=== PATIENT | male | born 1945 | race Caucasian/White ===

== ENCOUNTER 2019-11-05 13:29 | Emergency (ER) | payer OTHER ==
--- NOTE | 2019-11-05 13:45 | EDM.PDOC ---
ED HPI GENERAL MEDICAL PROBLEM - General Chief Complaint: Lower Extremity Injury/Pain Stated Complaint: MEDICATION REFILL Time Seen by Provider: 11/05/19 13:36 Source of Information: Reports: Patient History Limitations: Reports: No Limitations - History of Present Illness INITIAL COMMENTS - FREE TEXT/NARRATIVE: Patient is unfortunate 74-year-old male who presents emergency Department today with complaint of chronic right lower extremity pain. Patient reports he has been on oxycodone for 20 years for right lower extremity pain. He reports that he's been out of his oxycodone for the last 2 weeks after he came here from [place] and was unable to get his prescription refilled secondary to his physician retiring. Right Leg Pain Score (Numeric/FACES): 10 Review of Systems - Review of Systems Review Of Systems: See Below Constitutional: Denies: Chills, Diaphoresis Musculoskeletal: Reports: Leg Pain ED EXAM, GENERAL - Physical Exam Exam: See Below Exam Limited By: No Limitations General Appearance: Alert, WD/WN, No Apparent Distress Neck: Normal Inspection, Supple, Non-Tender, Full Range of Motion Respiratory/Chest: No Respiratory Distress, Lungs Clear, Normal Breath Sounds, No Accessory Muscle Use, Chest Non-Tender Cardiovascular: Normal Peripheral Pulses, Regular Rate, Rhythm, No Edema, No Gallop, No JVD, No Murmur, No Rub GI/Abdominal: Normal Bowel Sounds, Soft, Non-Tender, No Organomegaly, No Distention, No Abnormal Bruit, No Mass Back Exam: Normal Inspection, Full Range of Motion, NT Extremities: Normal Inspection, Normal Range of Motion Neurological: Alert Skin Exam: Warm, Dry Course - Re-Assessments/Exams Free Text/Narrative Re-Assessment/Exam: 11/05/19 13:44 Patient reports she's been out of oxycodone for 2 weeks, there is no danger at this time of opiate withdrawal, I have goes to great length with patient that is inappropriate to come to the emergency department for chronic pain treatment and we do not treat chronic pain of the emergency department patient verbalizes understanding we've instructed patient to follow up outpatient with PCP did attempt to address his issues he agrees to do so and will return for any worsening condition Departure - Departure Time of Disposition: 13:44 Disposition: Home, Self-Care 01 Condition: Good Clinical Impression: Chronic pain Qualifiers: Chronic pain type: other chronic pain Qualified Code(s): G89.29 - Other chronic pain - Discharge Information Referrals: PCP,Not In Area [Primary Care Provider] - Diana Bowers NP [Ordering Only Provider] - Additional Instructions: Home, rest, return as needed for worsening condition
== END 2019-11-05 13:55 | disposition home or self-care (01) ==
LOC: JD.ED 13:29
DX: G89.29 Other chronic pain (principal); M79.661 Pain in right lower leg
CPT/HCPCS: 99281; 99282

== ENCOUNTER 2020-06-24 01:12 | Emergency (ER) | payer OTHER ==
--- NOTE | 2020-06-24 01:51 | EDM.PDOC ---
ED HPI GENERAL MEDICAL PROBLEM - General Chief Complaint: Gastrointestinal Problem Stated Complaint: [facility] Time Seen by Provider: 06/24/20 01:20 Source of Information: Reports: Patient History Limitations: Reports: No Limitations - History of Present Illness INITIAL COMMENTS - FREE TEXT/NARRATIVE: Mr. Guido is a very pleasant 75-year-old gentleman who now presents the ED via EMS after developing sudden onset right lower quadrant abdominal pain around 21:30 to 22:00 tonight, while watching television. No flank or back pain. He is unable to describe the character of the pain other than it is a "steady pain". He states that the pain is constant, but at the same time, he states that it has been coming and going. He has not identified any modifiers. He st ates that he had some associated nausea, but no vomiting, constipation, diarrhea, urinary symptoms, or gross hematuria. No prior similar symptoms. The patient states that since arriving at the ED, his pain noticeably improved, and as I was evaluating him, his pain resolved completely. He did not take any [id number] or home remedies prior to coming to the ED, and he states that EMS did not give him anything en route to the ED. Here in the ED, the patient's initial BP was found to be elevated at 238/124, but it improved without treatment. He is otherwise hemodynamic stable, afebrile, saturating 93% on room air. Other than tonight's right lower quadrant abdominal pain and nausea, the patient denies having a recent fever, chills, sore throat, ear pain, nasal or sinus congestion, cough, dyspnea, chest pain, palpitations, vomiting, constipation, diarrhea, urinary symptoms, recent weight gain or weight loss, recent bloody bowel movements or black bowel movements, recent joint aches, headaches, or rashes. The patient's PCP is Dr. Parul Ho at the [facility]. - Related Data Allergies Allergy/AdvReac Type Severity Reaction Status Date / Time No Known Allergies Allergy Verified 11/05/19 13:45 Home Meds: Home Meds oxyCODONE HCl/Acetaminophen [Percocet 10-325 mg Tablet] 1 tab PO TID 11/05/19 [History] Past Medical History Cardiovascular History: Reports: High Cholesterol, Hypertension, [place] (x 2) Musculoskeletal History: Reports: Fracture (right femur fracture) - Past Surgical History Cardiovascular Surgical History: Reports: Coronary Artery Stent (x 1), Other (See Below) (Coronary angiogram x 2) Musculoskeletal Surgical History: Reports: ORIF (right femur) Social & Family History - Family History Family Medical History: Noncontributory - Tobacco Use Smoking Status *Q: Never Smoker - Alcohol Use Alcohol Use History: Yes Alcohol Use Frequency: Socially - Recreational Drug Use Recreational Drug Use: Yes Drug Use in Last 12 Months: Yes Recreational Drug Type: Reports: Marijuana/Hashish (smokes on occasion) - Living Situation & Occupation Living situation: Reports: , with Spouse Occupation: Retired ED ROS GENERAL - Review of Systems Review Of Systems: Comprehensive ROS is negative, except as noted in HPI. ED EXAM, GI/ABD - Physical Exam Exam: See Below Exam Limited By: No Limitations General Appearance: Alert, WD/WN, No Apparent Distress Eyes: Bilateral: Normal Appearance, EOMI Ears: Normal External Exam, Hearing Grossly Normal Nose: Normal Inspection Throat/Mouth: Normal Inspection, Normal Lips, Normal Voice, No Airway Compromise Head: Atraumatic, Normocephalic Neck: Normal Inspection, Full Range of Motion Respiratory/Chest: No Respiratory Distress, Lungs Clear, Normal Breath Sounds, No Accessory Muscle Use Cardiovascular: Normal Peripheral Pulses, Regular Rate, Rhythm, No Edema, No Gallop, No JVD, No Murmur, No Rub GI/Abdominal Exam: Normal Bowel Sounds, Soft, Non-Tender (including the RLQ), No Organomegaly, No Distention, No Abnormal Bruit, No Mass (Male) Exam: Deferred Rectal (Males) Exam: Deferred Back Exam: Normal Inspection, Full Range of Motion. No: CVA Tenderness (L), CVA Tenderness (R) Extremities: Normal Inspection, Normal Range of Motion, No Pedal Edema, Normal Capillary Refill Neurological: Alert, Oriented, Normal Cognition, No Motor/Sensory Deficits Psychiatric: Normal Affect Skin Exam: Warm, Dry, Intact, Normal Color, No Rash Course - Vital Signs Last Recorded V/S: Last Vital Signs Temp 36.5 C 06/24/20 01:14 Pulse 83 06/24/20 01:14 Resp 20 06/24/20 01:14 BP 159/84 H 06/24/20 01:55 Pulse Ox 93 L 06/24/20 01:14 - Orders/Labs/Meds Orders: Active Orders 24 hr Category Date Time Status CULTURE URINE [RM] Stat Lab 06/24/20 01:23 Received Labs: Laboratory Tests 06/24/20 Range/Units 01:22 Urine Color Yellow (Yellow) Urine Appearance Clear (Clear) Urine pH 7.0 (5.0-8.0) Ur Specific [place] > or = 1.030 (1.005-1.030) Urine Protein 3+ H (Negative) Urine Glucose (UA) Negative (Negative) Urine Ketones Negative (Negative) Urine Occult Blood 3+ H (Negative) Urine Nitrite Negative (Negative) Urine Bilirubin Negative (Negative) Urine Urobilinogen 0.2 (0.2-1.0) Ur Leukocyte Esterase Negative (Negative) U Hyaline Cast (Auto) 0-5 (0-5) /lpf Urine RBC 50-75 H (0-5) /hpf Urine WBC Not seen (0-5) /hpf Ur Squamous Epith Cells 0-5 (0-5) /hpf Ur Transition Epith Cell 0-5 (0-5) Urine Bacteria Few (FEW) /hpf Urine Mucus Moderate H (FEW) /hpf - Re-Assessments/Exams Free Text/Narrative Re-Assessment/Exam: 06/24/20 01:39 As above, the patient developed right lower quadrant pain earlier this evening, and while he still had pain upon arrival to the ED, the pain has since resolved, and his physical exam is unremarkable, including no tenderness whatsoever to palpation of his abdomen. During my interview, the patient needed to urinate, and a urine sample was sent, however, at this time, I do not see an indication for any other tests, since the patient is now asymptomatic. 06/24/20 01:58 The patient's urinalysis is remarkable for 3+ occult blood with 50-75 RBCs, leukocyte esterase negative with no white blood cells seen, nitrate negative with few bacteria, and 0-5 squamous epithelial cells. Given the patient's transient right lower quadrant abdominal pain and hematuria, I suspect that he suffered from a ureterolith, which appears to have now passed. I ordered a urine culture, but I do not feel that his urinalysis is consistent enough with a UTI to warrant starting him on an antibiotic. I believe he can safely be discharged home. Departure - Departure Time of Disposition: 02:03 Disposition: Home, Self-Care 01 Condition: Good Clinical Impression: Right lower quadrant abdominal pain of unknown etiology, Hematuria - Discharge Information *PRESCRIPTION DRUG MONITORING PROGRAM REVIEWED*: Not Applicable *COPY OF PRESCRIPTION DRUG MONITORING REPORT IN PATIENT JANET: Not Applicable Instructions: Hematuria, Adult Forms: ED Department Discharge Additional Instructions: You were seen in the emergency room after developing lower right abdominal pain, that resolved while you were in the ER, without treatment. Work-up in the ER included a urinalysis, which demonstrated blood, but no other abnormalities to suggest an infection. Based on your history, physical exam, and urinalysis results, we suspected that you passed a small kidney stone, although since your symptoms resolved, that cannot be proven. We recommend you stay adequately hydrated. If your symptoms return, or for any other problems, please do not hesitate to return to the ER. Sepsis Event Note (ED) - Evaluation Sepsis Screening Result: No Definite Risk - Focused Exam Vital Signs: Vital Signs Temp Pulse Resp BP Pulse Ox 06/24/20 01:55 159/84 H 06/24/20 01:14 36.5 C 83 20 238/124 H 93 L - My Orders Last 24 Hours: My Active Orders 06/24/20 01:23 CULTURE URINE [RM] Stat - Assessment/Plan Last 24 Hours: My Active Orders 06/24/20 01:23 CULTURE URINE [RM] Stat
== END 2020-06-24 02:25 | disposition home or self-care (01) ==
LOC: JD.ED 01:12
DX: R10.31 Right lower quadrant pain (principal); R31.9 Hematuria, unspecified; I10 Essential (primary) hypertension
CPT/HCPCS: 81001; 87086; 99282; 99284

== ENCOUNTER 2021-01-29 13:28 | Inpatient (IN) | payer OTHER ==
[2021-01-29] MEDS ORDERED: Sodium Chloride 0.9% 10 ML Syringe FLUSH PRN (13:40)
[2021-01-29] MEDS ORDERED: Metoprolol Tartrate 5 MG/5 ML SDV IVPUSH ONE ×2 (13:52→14:18)
--- NOTE | 2021-01-29 13:52 | EDM.PDOC ---
ED HPI GENERAL MEDICAL PROBLEM - General Chief Complaint: Neuro Symptoms/Deficits Stated Complaint: [facility] Time Seen by Provider: 01/29/21 13:39 Source of Information: Reports: Patient, RN Notes Reviewed - History of Present Illness INITIAL COMMENTS - FREE TEXT/NARRATIVE: 75 yr old male comes in by ambulance with sx of slurred speech, R facial droop, mild chest discomfort. EMS noted his BP to be high in the 250 range systolic. He has hx of Htn, CAD with a cardiac stent placed about 6 yrs ago and about 20 yrs ago. Last known well 2 or 3 days ago. He states he had some slurred speech 2 days ago. He states the speech was worse when awakened this morning. He has had mild tightness of his R chest all morning. No known hx of prior stroke. He does not smoke. No recent cough, fever or chills. Left Chest Pain Score (Numeric/FACES): 3 - Related Data Allergies Allergy/AdvReac Type Severity Reaction Status Date / Time No Known Allergies Allergy Verified 11/05/19 13:45 Home Meds: Home Meds oxyCODONE HCl/Acetaminophen [Percocet 10-325 mg Tablet] 1 tab PO TID 11/05/19 [History] Aspirin [Aspirin EC] 81 mg PO DAILY 01/29/21 [History] Cholecalciferol (Vitamin D3) [Vitamin D3] 25 mcg PO DAILY 01/29/21 [History] Clopidogrel Bisulfate [Clopidogrel] 75 mg PO DAILY 01/29/21 [History] Cyclobenzaprine [Flexeril] 10 mg PO BID PRN 01/29/21 [History] Donepezil HCl 10 mg PO BEDTIME 01/29/21 [History] Ibuprofen 800 mg PO DAILY 01/29/21 [History] Krill/[place]-3/Dha/Epa/Lipids [Krill Oil 300 mg Softgel] 350 mg PO DAILY 01/29/21 [History] Nitroglycerin 0.6 mg SL DAILY PRN 01/29/21 [History] Rosuvastatin Calcium 40 mg PO DAILY 01/29/21 [History] Ubidecarenone [Coq-10] 200 mg PO DAILY 01/29/21 [History] Vitamin E 800 unit PO DAILY 01/29/21 [History] carvediloL [Carvedilol] 6.25 mg PO BID 01/29/21 [History] lisinopriL [Lisinopril] 40 mg PO DAILY 01/29/21 [History] Past Medical History Cardiovascular History: Reports: High Cholesterol, Hypertension, [place] (x 2) Musculoskeletal History: Reports: Fracture (right femur fracture) - Past Surgical History Cardiovascular Surgical History: Reports: Coronary Artery Stent (x 1), Other (See Below) (Coronary angiogram x 2) Musculoskeletal Surgical History: Reports: ORIF (right femur) Social & Family History - Family History Family Medical History: No Pertinent Family History - Living Situation & Occupation Living situation: Reports: , with Spouse Occupation: Retired ED ROS GENERAL - Review of Systems Review Of Systems: See Below Constitutional: Denies: Fever, Chills, Diaphoresis HEENT: Reports: Other (R facial droop) Respiratory: Denies: Shortness of Breath, Cough Cardiovascular: Reports: Chest Pain GI/Abdominal: Denies: Abdominal Pain Musculoskeletal: Denies: Shoulder Pain, Arm Pain Skin: Reports: Bruising (L proximal medial thigh) Neurological: Reports: Other (R facial droop, slurred speech, mild expresssive aphasia) ED EXAM, NEURO - Physical Exam Exam: See Below General Appearance: Alert, No Apparent Distress Eye Exam: Bilateral Eye: PERRL Throat/Mouth: Other (R facial droop) Head Exam: Atraumatic Neck: Supple, Other (no JVD) Respiratory/Chest: No Respiratory Distress Cardiovascular: Tachycardia GI/Abdominal: Soft, Non-Tender. No: Guarding Neurological: Alert, Oriented x 3, Other (no drift, finger to nose testing normal, no focal weakness other than R facial droop, continues to have mildly slurred speech and mild expressive aphasia) Extremities: Other (has some old bruising L medial thigh, small area of swelling mid medial thigh compatable with a mild localized superfiscial phlebitis, distal legs not swollen, warm or erythematous, calves nontender) Skin Exam: Warm, Dry Course - Vital Signs Last Recorded V/S: Last Vital Signs Temp 97.7 F 01/29/21 13:37 Pulse 140 H 01/29/21 14:30 Resp 20 01/29/21 13:37 BP 197/143 H 01/29/21 14:30 Pulse Ox 98 01/29/21 13:37 - Orders/Labs/Meds Orders: Active Orders 24 hr Category Date Time Status EKG 12 Lead [EKG Documentation Completion] [] STAT Care 01/29/21 13:41 Active EKG 12 Lead [EKG Documentation Completion] [] STAT Care 01/29/21 15:22 Active Peripheral IV Care [] . DIRECTED Care 01/29/21 13:41 Active Clopidogrel [Plavix] Med 01/30/21 17:35 Once 75 mg PO ONETIME ONE Sodium Chloride 0.9% [Saline Flush] Med 01/29/21 13:40 Active 10 ml FLUSH ASDIRECTED PRN Peripheral IV Insertion Adult [OM.PC] Stat Oth 01/29/21 13:41 Ordered Medication Orders Clopidogrel Bisulfate (Clopidogrel 75 Mg Tab) 75 mg PO ONETIME ONE Stop: 01/30/21 17:36 Sodium Chloride (Sodium Chloride 0.9% 10 Ml Syringe) 10 ml FLUSH ASDIRECTED PRN PRN Reason: Keep Vein Open Last Admin: 01/29/21 16:33 Dose: 10 ml Documented by: ENRIQUE Labs: Laboratory Tests 01/29/21 01/29/21 01/29/21 Range/Units 11:44 13:37 13:39 WBC 7.67 (4.23-9.07) K/mm3 RBC 5.72 (4.63-6.08) M/mm3 Hgb 16.5 (13.7-17.5) gm/dl Hct 49.4 (40.1-51.0) % MCV 86.4 (79.0-92.2) fl MCH 28.8 (25.7-32.2) pg MCHC 33.4 (32.2-35.5) g/dl RDW Std Deviation 45.1 H (35.1-43.9) fL Plt Count 158 L (163-337) K/mm3 MPV 10.8 (9.4-12.3) fl Neut % (Auto) 67.6 (34.0-67.9) % Lymph % (Auto) 21.3 L (21.8-53.1) % [place] % (Auto) 8.1 (5.3-12.2) % Eos % (Auto) 2.5 (0.8-7.0) Baso % (Auto) 0.5 (0.1-1.2) % Neut # (Auto) 5.19 (1.78-5.38) K/mm3 Lymph # (Auto) 1.63 (1.32-3.57) K/mm3 [place] # (Auto) 0.62 (0.30-0.82) K/mm3 Eos # (Auto) 0.19 (0.04-0.54) K/mm3 Baso # (Auto) 0.04 (0.01-0.08) K/mm3 Sodium (136-145) mEq/L Potassium (3.5-5.1) mEq/L Chloride (98-107) mEq/L Carbon Dioxide (21-32) mEq/L Anion Gap (5-15) BUN (7-18) mg/dL Creatinine (0.7-1.3) mg/dL Est Cr Clr Drug Dosing Estimated GFR (MDRD) (>60) mL/min BUN/Creatinine Ratio (14-18) Glucose (83-115) mg/dL POC Glucose 297 H (70-99) mg/dL Hemoglobin A1c ( - 5.6) % Calcium (8.5-10.1) mg/dL Total Bilirubin (0.2-1.0) mg/dL AST (15-37) U/L ALT (16-63) U/L Alkaline Phosphatase (46-116) U/L Troponin I (0.00-0.056) ng/mL NT-Pro-B Natriuret Pep (0-125) pg/mL Total Protein (6.4-8.2) g/dl Albumin (3.4-5.0) g/dl Globulin gm/dL Albumin/Globulin Ratio (1-2) SARS-CoV-2 RNA (MARCO) Negative (NEGATIVE) 01/29/21 01/29/21 01/29/21 Range/Units 13:39 13:39 13:39 WBC (4.23-9.07) K/mm3 RBC (4.63-6.08) M/mm3 Hgb (13.7-17.5) gm/dl Hct (40.1-51.0) % MCV (79.0-92.2) fl MCH (25.7-32.2) pg MCHC (32.2-35.5) g/dl RDW Std Deviation (35.1-43.9) fL Plt Count (163-337) K/mm3 MPV (9.4-12.3) fl Neut % (Auto) (34.0-67.9) % Lymph % (Auto) (21.8-53.1) % [place] % (Auto) (5.3-12.2) % Eos % (Auto) (0.8-7.0) Baso % (Auto) (0.1-1.2) % Neut # (Auto) (1.78-5.38) K/mm3 Lymph # (Auto) (1.32-3.57) K/mm3 [place] # (Auto) (0.30-0.82) K/mm3 Eos # (Auto) (0.04-0.54) K/mm3 Baso # (Auto) (0.01-0.08) K/mm3 Sodium 139 (136-145) mEq/L Potassium 3.5 (3.5-5.1) mEq/L Chloride 101 (98-107) mEq/L Carbon Dioxide 20 L (21-32) mEq/L Anion Gap 21.5 H (5-15) BUN 16 (7-18) mg/dL Creatinine 1.0 (0.7-1.3) mg/dL Est Cr Clr Drug Dosing TNP Estimated GFR (MDRD) > 60 (>60) mL/min BUN/Creatinine Ratio 16.0 (14-18) Glucose 308 H (83-115) mg/dL POC Glucose (70-99) mg/dL Hemoglobin A1c 6.3 H ( - 5.6) % Calcium 8.8 (8.5-10.1) mg/dL Total Bilirubin 1.4 H (0.2-1.0) mg/dL AST 27 (15-37) U/L ALT 27 (16-63) U/L Alkaline Phosphatase 67 (46-116) U/L Troponin I 0.027 (0.00-0.056) ng/mL NT-Pro-B Natriuret Pep 691 H (0-125) pg/mL Total Protein 7.9 (6.4-8.2) g/dl Albumin 4.1 (3.4-5.0) g/dl Globulin 3.8 gm/dL Albumin/Globulin Ratio 1.1 (1-2) SARS-CoV-2 RNA (MARCO) (NEGATIVE) 01/29/21 Range/Units 16:40 WBC (4.23-9.07) K/mm3 RBC (4.63-6.08) M/mm3 Hgb (13.7-17.5) gm/dl Hct (40.1-51.0) % MCV (79.0-92.2) fl MCH (25.7-32.2) pg MCHC (32.2-35.5) g/dl RDW Std Deviation (35.1-43.9) fL Plt Count (163-337) K/mm3 MPV (9.4-12.3) fl Neut % (Auto) (34.0-67.9) % Lymph % (Auto) (21.8-53.1) % [place] % (Auto) (5.3-12.2) % Eos % (Auto) (0.8-7.0) Baso % (Auto) (0.1-1.2) % Neut # (Auto) (1.78-5.38) K/mm3 Lymph # (Auto) (1.32-3.57) K/mm3 [place] # (Auto) (0.30-0.82) K/mm3 Eos # (Auto) (0.04-0.54) K/mm3 Baso # (Auto) (0.01-0.08) K/mm3 Sodium (136-145) mEq/L Potassium (3.5-5.1) mEq/L Chloride (98-107) mEq/L Carbon Dioxide (21-32) mEq/L Anion Gap (5-15) BUN (7-18) mg/dL Creatinine (0.7-1.3) mg/dL Est Cr Clr Drug Dosing Estimated GFR (MDRD) (>60) mL/min BUN/Creatinine Ratio (14-18) Glucose (83-115) mg/dL POC Glucose (70-99) mg/dL Hemoglobin A1c ( - 5.6) % Calcium (8.5-10.1) mg/dL Total Bilirubin (0.2-1.0) mg/dL AST (15-37) U/L ALT (16-63) U/L Alkaline Phosphatase (46-116) U/L Troponin I 0.109 H* (0.00-0.056) ng/mL NT-Pro-B Natriuret Pep (0-125) pg/mL Total Protein (6.4-8.2) g/dl Albumin (3.4-5.0) g/dl Globulin gm/dL Albumin/Globulin Ratio (1-2) SARS-CoV-2 RNA (MARCO) (NEGATIVE) Meds: Medications Generic Name Dose Route Start Last Admin Trade Name Freq PRN Reason Stop Dose Admin Clopidogrel Bisulfate 75 mg 01/30/21 17:35 Clopidogrel 75 Mg Tab PO 01/30/21 17:36 ONETIME ONE Sodium Chloride 10 ml 01/29/21 13:40 01/29/21 16:33 Sodium Chloride 0.9% 10 Ml Syringe FLUSH 10 ml ASDIRECTED PRN Administration Keep Vein Open Discontinued Medications Generic Name Dose Route Start Last Admin Trade Name Freq PRN Reason Stop Dose Admin Aspirin 324 mg 01/29/21 17:34 Aspirin 81 Mg Tab.Chew PO 01/29/21 17:35 ONETIME ONE Diltiazem HCl 20 mg 01/29/21 14:31 01/29/21 14:36 Diltiazem 50 Mg/10 Ml Sdv IVPUSH 01/29/21 14:32 15 mg ONETIME ONE Administration Metoprolol Tartrate 5 mg 01/29/21 13:52 01/29/21 14:00 Metoprolol Tartrate 5 Mg/5 Ml Sdv IVPUSH 01/29/21 13:53 5 mg ONETIME ONE Administration Metoprolol Tartrate 5 mg 01/29/21 14:18 01/29/21 14:30 Metoprolol Tartrate 5 Mg/5 Ml Sdv IVPUSH 01/29/21 14:19 2.5 mg ONETIME ONE Administration - Re-Assessments/Exams Free Text/Narrative Re-Assessment/Exam: 01/29/21 15:40. Initially gave 5 mg and 2.5 mg lopressor IV. That brought his rate down to the mid 140's, and did bring his BP down to about 190 systolic from the 250 systolic on arrival. Than went to Diltiazam IV. 10 mg IV brought his rate down to the 120's with occasional p wave complexes visible. Gave an addition 5 mg IV and with that he converted to NSR, rate in the 60's. His chest pain is gone. He feels much better. He still does have mild R facial droop and mildly slurred speech. Last definitive known well last evening before bedtime, perhaps as long as 2 or 3 days ago. Initial trop was very mildly up from baseline at .023. Will repeat trop at this time and also check a A1C. glucose noted to be around 300. 01/29/21 17:45. Repeat trop did come back more elevated at .109. I did discuss this with Dr Nicolas, Cardiology, [facility]. He feels the elevated trop is not an unreasonable finding considering his elevated BP before and on arrival and also the tachycardia of unknown duration. He suggests hospital admission here, continue serial trops, further treatment and rehab of stroke, transfer if things change or worsen in any meaningful way. Pt's BP right now 161/90, he is resting comfortably. I believe his speech is improved from arrival but he still does have mild R facial droop, mild slurring of his speech. Continues to have no upper or lower extrem. weakness or clumsiness. Departure - Departure Time of Disposition: 17:47 Disposition: Home, Self-Care 01 Condition: Fair Clinical Impression: Atrial flutter with rapid ventricular response, Elevated troponin CVA (cerebral vascular accident) Qualifiers: CVA mechanism: unspecified Qualified Code(s): I63.9 - Cerebral infarction, unspecified Hypertension Qualifiers: Hypertension type: essential hypertension Qualified Code(s): I10 - Essential (primary) hypertension - Discharge Information Referrals: Flora Horner MD [Primary Care Provider] - Forms: ED Department Discharge Sepsis Event Note (ED) - Focused Exam Vital Signs: Vital Signs Temp Pulse Pulse Resp BP BP Pulse Ox 01/29/21 14:30 140 H 197/143 H 01/29/21 14:00 152 H 215/135 H 01/29/21 13:37 97.7 F 152 H 20 223/154 H 98 ED Communication - Discussed Case With (1) Discussed Case With (1): Admitting Provider (Dr Zimmerman, decision to admit at about 17:50.) - My Orders Last 24 Hours: My Active Orders 01/29/21 13:40 Sodium Chloride 0.9% [Saline Flush] 10 ml FLUSH ASDIRECTED PRN 01/29/21 13:41 EKG 12 Lead [EKG Documentation Completion] [RC] STAT Peripheral IV Care [RC] . DIRECTED Peripheral IV Insertion Adult [OM.PC] Stat 01/29/21 15:22 EKG 12 Lead [EKG Documentation Completion] [RC] STAT 01/30/21 17:35 Clopidogrel [Plavix] 75 mg PO ONETIME ONE - Assessment/Plan Last 24 Hours: My Active Orders 01/29/21 13:40 Sodium Chloride 0.9% [Saline Flush] 10 ml FLUSH ASDIRECTED PRN 01/29/21 13:41 EKG 12 Lead [EKG Documentation Completion] [RC] STAT Peripheral IV Care [RC] . DIRECTED Peripheral IV Insertion Adult [OM.PC] Stat 01/29/21 15:22 EKG 12 Lead [EKG Documentation Completion] [RC] STAT 01/30/21 17:35 Clopidogrel [Plavix] 75 mg PO ONETIME ONE
--- NOTE | 2021-01-29 14:18 | CT ---
Head CT Technique: Multiple axial sections through the brain were obtained. Intravenous contrast was not utilized. Reconstructed coronal and sagittal images were obtained. Findings: Ventricles along with basal cisterns and sulci over the convexities are moderately prominent. Diminished density is noted within the periventricular and subcortical white matter which has the appearance of small vessel ischemic demyelination change. Small old white matter infarct is noted within the right centrum semi-ovale. Minimal areas of diminished density are noted within the basal ganglia most likely due to small vessel demyelination change. Low density is also noted within the subcortical white matter within the left parietal region compatible with old white matter infarct. No other abnormal parenchymal densities are seen. Atherosclerotic calcification is noted within the vertebral vessels and within the carotid siphon. Bone window settings were reviewed. Visualized paranasal sinuses and mastoid sinuses show nothing acute. No acute calvarial abnormality is appreciated. Impression: 1. Diffuse senescent change as noted above. 2. No acute intracranial abnormality is appreciated on noncontrast head CT exam. Please correlate if patient's symptoms warrant further evaluation by MRI. Diagnostic code #2
--- NOTE | 2021-01-29 14:20 | CR ---
Chest: Portable view of the chest was obtained. Comparison: No previous chest imaging available. Heart size and mediastinum are within normal limits for portable technique. Lungs are clear with no acute parenchymal change. No acute osseous finding is seen. Impression: 1. Nothing acute is seen on portable chest x-ray. Diagnostic code #1
[2021-01-29] MEDS ORDERED: Diltiazem 50 MG/10 ML SDV IVPUSH ONE (14:31)
[2021-01-29 16:46] LABS: HEMOGLOBIN A1C 6.3 %
[2021-01-29] MEDS ORDERED: Aspirin 81 MG Tab.Chew PO ONE (17:34)
[2021-01-29] MEDS ORDERED: Clopidogrel 75 MG Tab PO ONE (18:02)
[2021-01-29] MEDS ORDERED: Acetaminophen 325 MG Tab PO PRN (18:20)
[2021-01-29] MEDS ORDERED: Ondansetron 4 MG Tab.DIS PO PRN (18:20)
[2021-01-29] MEDS ORDERED: Morphine 2 MG/ML SYRINGE IVPUSH PRN (18:20)
[2021-01-29] MEDS ORDERED: Docusate Sodium 100 MG Cap PO PRN (18:20)
[2021-01-29] MEDS ORDERED: oxyCODONE 5 MG Tab PO PRN (18:20)
[2021-01-29] MEDS ORDERED: Cyclobenzaprine 10 MG Tab PO PRN (18:31)
--- NOTE | 2021-01-29 18:34 | PCM.HP.2 ---
H&P History of Present Illness - General Date of Service: 01/29/21 Admit Problem/Dx: Admission Diagnosis/Problem Admission Diagnosis/Problem CVA, Cerebrovascular accident Source of Information: Patient History Limitations: Reports: Other (Poor historian) - History of Present Illness Initial Comments - Free Text/Narative: The patient is a 75-year-old gentleman who has presented to the emergency department complaining of slurred speech facial droop and chest discomfort that started approximately 3 days ago. The patient in the emergency department was noted to have an extremely elevated blood pressure around 250 mmHg systolic. Patient does have a history of hypertension and has been on medications for this. Patient also has a history of coronary artery disease with stent placement 6 years ago and 20 years ago. It was also initially noted that he had superior ventricular tachycardia with rates in the 180 bpm. The patient had his rate controlled and he converted to sinus rhythm in the emergency department after diltiazem. The patient's EKG shows evidence of old infarct along with right bundle branch block. The patient's blood pressure was also controlled in the emergency department and at the time of the history and physical the patient had no further chest pain. The patient normally follows with the [facility] but he has not seen a physician in the past year and a half. Poor historian. Onset of Symptoms: Reports: Unknown/Unsure Duration of Symptoms: Reports: Day(s): Location: Reports: Head, Chest Quality: Reports: Ache, Dull, Pressure Severity: Moderate Improves with: Reports: Medication Worsens with: Reports: None Context: Reports: Other (Stroke code) Left Chest Pain Score (Numeric/FACES): 3 - Related Data Allergies/Adverse Reactions: Allergies Allergy/AdvReac Type Severity Reaction Status Date / Time No Known Allergies Allergy Verified 01/29/21 20:46 Home Medications: Home Meds oxyCODONE HCl/Acetaminophen [Percocet 10-325 mg Tablet] 1 tab PO TID 11/05/19 [History] Aspirin [Aspirin EC] 81 mg PO DAILY 01/29/21 [History] Cholecalciferol (Vitamin D3) [Vitamin D3] 25 mcg PO DAILY 01/29/21 [History] Clopidogrel Bisulfate [Clopidogrel] 75 mg PO DAILY 01/29/21 [History] Cyclobenzaprine [Flexeril] 10 mg PO BID PRN 01/29/21 [History] Donepezil HCl 10 mg PO BEDTIME 01/29/21 [History] Ibuprofen 800 mg PO DAILY 01/29/21 [History] Krill/Griffin-3/Dha/Epa/Lipids [Krill Oil 300 mg Softgel] 350 mg PO DAILY 01/29/21 [History] Nitroglycerin 0.6 mg SL DAILY PRN 01/29/21 [History] Rosuvastatin Calcium 40 mg PO DAILY 01/29/21 [History] Ubidecarenone [Coq-10] 200 mg PO DAILY 01/29/21 [History] Vitamin E 800 unit PO DAILY 01/29/21 [History] carvediloL [Carvedilol] 6.25 mg PO BID 01/29/21 [History] lisinopriL [Lisinopril] 40 mg PO DAILY 01/29/21 [History] Past Medical History HEENT History: Reports: None Cardiovascular History: Reports: High Cholesterol, Hypertension, [facility] Respiratory History: Reports: None Gastrointestinal History: Reports: None Genitourinary History: Reports: None Musculoskeletal History: Reports: Back Pain, Chronic, Fracture, Other (See Below) (Chronic leg pain) Neurological History: Reports: CVA Psychiatric History: Reports: Anxiety, PTSD Endocrine/Metabolic History: Reports: None Hematologic History: Reports: None Immunologic History: Reports: None Oncologic (Cancer) History: Reports: None Dermatologic History: Reports: None - Past Surgical History Cardiovascular Surgical History: Reports: Coronary Artery Stent, Other (See Below) Musculoskeletal Surgical History: Reports: ORIF Other Musculoskeletal Surgeries/Procedures:: right lower leg injury from war cinda e-uses brace and oxycodone Social & Family History - Family History Family Medical History: No Pertinent Family History - Tobacco Use Tobacco Use Status *Q: Never Tobacco User - Recreational Drug Use Recreational Drug Use: Yes Drug Use in Last 12 Months: Yes Recreational Drug Type: Reports: Marijuana/Hashish Other Recreational Drug Type: Pt used marijuana two days ago Recreational Drug Use Frequency: Monthly - Living Situation & Occupation Living situation: Reports: , with Spouse Occupation: Retired H&P Review of Systems - Review of Systems: Review Of Systems: See Below General: Reports: Weakness HEENT: Reports: No Symptoms Pulmonary: Reports: No Symptoms Cardiovascular: Reports: Chest Pain (Currently resolved with lowering of blood pressure and heart rate) Gastrointestinal: Reports: No Symptoms Genitourinary: Reports: No Symptoms Musculoskeletal: Reports: Leg Pain Skin: Reports: Bruising Psychiatric: Reports: Anxiety, Other (Depression, PTSD) Neurological: Reports: Pre-Existing Deficit, Change in Speech. Denies: Numbness, Difficulty Walking Hematologic/Lymphatic: Reports: Easy Bruising Immunologic: Reports: No Symptoms Exam - Exam Exam: See Below - Vital Signs Vital Signs: Last Vital Signs Temp 36.5 C 01/29/21 13:37 Pulse 140 H 01/29/21 14:30 Resp 20 01/29/21 13:37 BP 197/143 H 01/29/21 14:30 Pulse Ox 98 01/29/21 13:37 - Exam Quality Assessment: No: Supplemental Oxygen General: Alert, Oriented, Other (Appears older than stated age, disheveled) HEENT: Conjunctiva Clear, EOMI, Hearing Intact, Posterior Pharynx Clear, PERRLA. No: Mucosa Moist & [place] (Dry) Neck: Supple, Trachea Midline Lungs: Clear to Auscultation, Normal Respiratory Effort Cardiovascular: Regular Rate, Irregular Rhythm GI/Abdominal Exam: Normal Bowel Sounds, Soft, Non-Tender, No Distention. No: Guarding, Rigid (Male) Exam: Deferred Rectal (Males) Exam: Deferred Back Exam: Normal Inspection, Full Range of Motion Extremities: Normal Inspection, Normal Range of Motion, No Pedal Edema, Other (Brace left leg) Skin: Warm, Dry, Ecchymosis (Multiple ecchymoses legs, arms all in different stages of healing) Neurological: Strength Equal Bilateral, Sensation Intact. No: Normal Gait (Walks with a limp normally), Normal Speech (Slurred speech) Neuro Extensive - Mental Status: Alert, Oriented x3, Normal Mood/Affect, Normal Cognition Neuro Extensive - Motor, Sensory, Reflexes: CN II-XII Intact, Facial palsy (L). No: Tongue Deviation (L), Tongue Deviation (R) Psychiatric: Alert, Normal Affect, Depressed, Other (Tearful) - Patient Data Lab Results Last 24 hrs: Laboratory Results - last 24 hr 01/29/21 01/29/21 01/29/21 Range/Units 11:44 13:37 13:39 WBC 7.67 (4.23-9.07) K/mm3 RBC 5.72 (4.63-6.08) M/mm3 Hgb 16.5 (13.7-17.5) gm/dl Hct 49.4 (40.1-51.0) % MCV 86.4 (79.0-92.2) fl MCH 28.8 (25.7-32.2) pg MCHC 33.4 (32.2-35.5) g/dl RDW Std Deviation 45.1 H (35.1-43.9) fL Plt Count 158 L (163-337) K/mm3 MPV 10.8 (9.4-12.3) fl Neut % (Auto) 67.6 (34.0-67.9) % Lymph % (Auto) 21.3 L (21.8-53.1) % [place] % (Auto) 8.1 (5.3-12.2) % Eos % (Auto) 2.5 (0.8-7.0) Baso % (Auto) 0.5 (0.1-1.2) % Neut # (Auto) 5.19 (1.78-5.38) K/mm3 Lymph # (Auto) 1.63 (1.32-3.57) K/mm3 [place] # (Auto) 0.62 (0.30-0.82) K/mm3 Eos # (Auto) 0.19 (0.04-0.54) K/mm3 Baso # (Auto) 0.04 (0.01-0.08) K/mm3 Sodium (136-145) mEq/L Potassium (3.5-5.1) mEq/L Chloride (98-107) mEq/L Carbon Dioxide (21-32) mEq/L Anion Gap (5-15) BUN (7-18) mg/dL Creatinine (0.7-1.3) mg/dL Est Cr Clr Drug Dosing Estimated GFR (MDRD) (>60) mL/min BUN/Creatinine Ratio (14-18) Glucose (83-115) mg/dL POC Glucose 297 H (70-99) mg/dL Hemoglobin A1c ( - 5.6) % Calcium (8.5-10.1) mg/dL Total Bilirubin (0.2-1.0) mg/dL AST (15-37) U/L ALT (16-63) U/L Alkaline Phosphatase (46-116) U/L Troponin I (0.00-0.056) ng/mL NT-Pro-B Natriuret Pep (0-125) pg/mL Total Protein (6.4-8.2) g/dl Albumin (3.4-5.0) g/dl Globulin gm/dL Albumin/Globulin Ratio (1-2) SARS-CoV-2 RNA (MARCO) Negative (NEGATIVE) 01/29/21 01/29/21 01/29/21 Range/Units 13:39 13:39 13:39 WBC (4.23-9.07) K/mm3 RBC (4.63-6.08) M/mm3 Hgb (13.7-17.5) gm/dl Hct (40.1-51.0) % MCV (79.0-92.2) fl MCH (25.7-32.2) pg MCHC (32.2-35.5) g/dl RDW Std Deviation (35.1-43.9) fL Plt Count (163-337) K/mm3 MPV (9.4-12.3) fl Neut % (Auto) (34.0-67.9) % Lymph % (Auto) (21.8-53.1) % [place] % (Auto) (5.3-12.2) % Eos % (Auto) (0.8-7.0) Baso % (Auto) (0.1-1.2) % Neut # (Auto) (1.78-5.38) K/mm3 Lymph # (Auto) (1.32-3.57) K/mm3 [place] # (Auto) (0.30-0.82) K/mm3 Eos # (Auto) (0.04-0.54) K/mm3 Baso # (Auto) (0.01-0.08) K/mm3 Sodium 139 (136-145) mEq/L Potassium 3.5 (3.5-5.1) mEq/L Chloride 101 (98-107) mEq/L Carbon Dioxide 20 L (21-32) mEq/L Anion Gap 21.5 H (5-15) BUN 16 (7-18) mg/dL Creatinine 1.0 (0.7-1.3) mg/dL Est Cr Clr Drug Dosing TNP Estimated GFR (MDRD) > 60 (>60) mL/min BUN/Creatinine Ratio 16.0 (14-18) Glucose 308 H (83-115) mg/dL POC Glucose (70-99) mg/dL Hemoglobin A1c 6.3 H ( - 5.6) % Calcium 8.8 (8.5-10.1) mg/dL Total Bilirubin 1.4 H (0.2-1.0) mg/dL AST 27 (15-37) U/L ALT 27 (16-63) U/L Alkaline Phosphatase 67 (46-116) U/L Troponin I 0.027 (0.00-0.056) ng/mL NT-Pro-B Natriuret Pep 691 H (0-125) pg/mL Total Protein 7.9 (6.4-8.2) g/dl Albumin 4.1 (3.4-5.0) g/dl Globulin 3.8 gm/dL Albumin/Globulin Ratio 1.1 (1-2) SARS-CoV-2 RNA (MARCO) (NEGATIVE) 01/29/21 Range/Units 16:40 WBC (4.23-9.07) K/mm3 RBC (4.63-6.08) M/mm3 Hgb (13.7-17.5) gm/dl Hct (40.1-51.0) % MCV (79.0-92.2) fl MCH (25.7-32.2) pg MCHC (32.2-35.5) g/dl RDW Std Deviation (35.1-43.9) fL Plt Count (163-337) K/mm3 MPV (9.4-12.3) fl Neut % (Auto) (34.0-67.9) % Lymph % (Auto) (21.8-53.1) % [place] % (Auto) (5.3-12.2) % Eos % (Auto) (0.8-7.0) Baso % (Auto) (0.1-1.2) % Neut # (Auto) (1.78-5.38) K/mm3 Lymph # (Auto) (1.32-3.57) K/mm3 [place] # (Auto) (0.30-0.82) K/mm3 Eos # (Auto) (0.04-0.54) K/mm3 Baso # (Auto) (0.01-0.08) K/mm3 Sodium (136-145) mEq/L Potassium (3.5-5.1) mEq/L Chloride (98-107) mEq/L Carbon Dioxide (21-32) mEq/L Anion Gap (5-15) BUN (7-18) mg/dL Creatinine (0.7-1.3) mg/dL Est Cr Clr Drug Dosing Estimated GFR (MDRD) (>60) mL/min BUN/Creatinine Ratio (14-18) Glucose (83-115) mg/dL POC Glucose (70-99) mg/dL Hemoglobin A1c ( - 5.6) % Calcium (8.5-10.1) mg/dL Total Bilirubin (0.2-1.0) mg/dL AST (15-37) U/L ALT (16-63) U/L Alkaline Phosphatase (46-116) U/L Troponin I 0.109 H* (0.00-0.056) ng/mL NT-Pro-B Natriuret Pep (0-125) pg/mL Total Protein (6.4-8.2) g/dl Albumin (3.4-5.0) g/dl Globulin gm/dL Albumin/Globulin Ratio (1-2) SARS-CoV-2 RNA (MARCO) (NEGATIVE) Result Diagrams: 01/30/21 06:15 01/30/21 06:15 Sepsis Event Note - Evaluation Sepsis Screening Result: No Definite Risk - Focused Exam Vital Signs: Vital Signs Temp Pulse Pulse Resp BP BP Pulse Ox 01/29/21 14:30 140 H 197/143 H 01/29/21 14:00 152 H 215/135 H 01/29/21 13:37 36.5 C 152 H 20 223/154 H 98 *Q Meaningful Use (ADM) - VTE *Q VTE Mechanical Contraindications *Q: At Risk for Falls VTE Pharmacological Contraindications *Q: Risk of Bleeding - Problem List (1) CVA (cerebral vascular accident) SNOMED Code(s): 737977117 ICD Code: I63.9 - CEREBRAL INFARCTION, UNSPECIFIED Status: Acute Priority: High Current Visit: Yes Qualifiers: CVA mechanism: unspecified Qualified Code(s): I63.9 - Cerebral infarction, unspecified (2) Hypertension SNOMED Code(s): 35747830 ICD Code: I10 - ESSENTIAL (PRIMARY) HYPERTENSION Status: Chronic Priority: High Current Visit: Yes Qualifiers: Hypertension type: essential hypertension Qualified Code(s): I10 - Essential (primary) hypertension (3) Right bundle branch block SNOMED Code(s): 75351122 ICD Code: I45.10 - UNSPECIFIED RIGHT BUNDLE-BRANCH BLOCK Status: Chronic Priority: High Current Visit: Yes (4) Demand ischemia of myocardium SNOMED Code(s): 269306278, 290360897134228 ICD Code: I24.8 - OTHER FORMS OF ACUTE ISCHEMIC HEART DISEASE Status: Chronic Priority: High Current Visit: Yes (5) PTSD (post-traumatic stress disorder) SNOMED Code(s): 51277523 ICD Code: F43.10 - POST-TRAUMATIC STRESS DISORDER, UNSPECIFIED Status: Chronic Priority: Low Current Visit: Yes (6) Atrial flutter with rapid ventricular response SNOMED Code(s): 1862042, 5569528 ICD Code: I48.92 - UNSPECIFIED ATRIAL FLUTTER Status: Resolved Priority: High Current Visit: Yes (7) Elevated troponin SNOMED Code(s): 549874511, 811757533, 002663454 ICD Code: R77.8 - OTHER SPECIFIED ABNORMALITIES OF PLASMA PROTEINS Status: Acute Priority: High Current Visit: Yes (8) Chronic pain SNOMED Code(s): 38357060 ICD Code: G89.29 - OTHER CHRONIC PAIN Status: Chronic Priority: Medium Current Visit: Yes Qualifiers: Chronic pain type: other chronic pain Qualified Code(s): G89.29 - Other chronic pain (9) Hyperglycemia SNOMED Code(s): 88523371 ICD Code: R73.9 - HYPERGLYCEMIA, UNSPECIFIED Status: Chronic Priority: High Current Visit: Yes (10) Prediabetes SNOMED Code(s): 077708512 ICD Code: R73.03 - PREDIABETES Status: Chronic Priority: High Current Visit: Yes Problem List Initiated/Reviewed/Updated: Yes Orders Last 24hrs: Active Orders 24 hr Category Date Time Status Patient Status [ADT] Routine ADT 01/29/21 17:58 Active Antiembolic Devices [RC] PER UNIT ROUTINE Care 01/29/21 18:20 Ordered Blood Glucose Check, Bedside [RC] QIDACANDBED Care 01/29/21 18:20 Ordered Cardiac Monitoring [RC] CONTINUOUS Care 01/29/21 18:17 Ordered Diabetes Education [RC] Click to Edit Care 01/29/21 18:17 Ordered EKG 12 Lead [EKG Documentation Completion] [RC] STAT Care 01/29/21 13:41 Active EKG 12 Lead [EKG Documentation Completion] [RC] STAT Care 01/29/21 15:22 Active Oxygen Therapy [RC] PRN Care 01/29/21 18:16 Ordered Oxygen Therapy [RC] PRN Care 01/29/21 18:20 Ordered Peripheral IV Care [RC] . DIRECTED Care 01/29/21 13:41 Active Up With Assistance [RC] ASDIRECTED Care 01/29/21 18:15 Ordered VTE/DVT Education [RC] PER UNIT ROUTINE Care 01/29/21 18:16 Ordered VTE/DVT Education [RC] PER UNIT ROUTINE Care 01/29/21 18:20 Ordered Vital Signs [RC] Q4H Care 01/29/21 18:16 Ordered Vital Signs [RC] Q4H Care 01/29/21 18:20 Ordered Consult to Diabetic Nurse Specialist [CONS] Routine Cons 01/29/21 18:20 Order ed OT Evaluation and Treatment [CONS] Routine Cons 01/29/21 18:20 Ordered PT Evaluation and Treatment [CONS] Routine Cons 01/29/21 18:20 Ordered MARKETING ADMIN Evaluation and Treatment [CONS] Routine Cons 01/29/21 18:20 Ordered Consistent Carbohydrate Diet [DIET] Diet 01/30/21 Breakfast Ordered Brain w wo Cont [MR] Routine Exams 01/29/21 18:20 Ordered CBC WITH AUTO DIFF [HEME] AM Lab 01/30/21 05:11 Ordered COMPREHENSIVE METABOLIC PN,CMP [CHEM] AM Lab 01/30/21 05:11 Ordered MAGNESIUM [CHEM] AM Lab 01/30/21 05:11 Ordered TROPONIN I [CHEM] Timed Lab 01/29/21 18:20 Ordered Acetaminophen [TylenoL] Med 01/29/21 18:20 Ordered 650 mg PO Q4H PRN Aspirin [Halfprin] Med 01/30/21 09:00 Ordered 81 mg PO DAILY Clopidogrel [Plavix] Med 01/30/21 09:00 Ordered 75 mg PO DAILY Cyclobenzaprine [Flexeril] Med 01/29/21 18:31 Ordered 10 mg PO BID PRN Docusate Sodium [Colace] Med 01/29/21 18:20 Ordered 100 mg PO BID PRN Donepezil [Aricept] Med 01/29/21 21:00 Ordered 10 mg PO BEDTIME Insulin Regular, Human [HumuLIN R] Med 01/29/21 19:00 Ordered See Protocol SUBCUT TIDPC Morphine Med 01/29/21 18:20 Ordered 2 mg IVPUSH Q2H PRN Ondansetron [Zofran ODT] Med 01/29/21 18:20 Ordered 4 mg PO Q6H PRN Sodium Chloride 0.9% [Normal Saline] 1,000 ml Med 01/29/21 18:30 Ordered IV ASDIRECTED Sodium Chloride 0.9% [Saline Flush] Med 01/29/21 13:40 Active 10 ml FLUSH ASDIRECTED PRN Temazepam [Restoril] Med 01/29/21 18:20 Ordered 15 mg PO BEDTIME PRN carvediloL [Coreg] Med 01/29/21 21:00 Ordered 6.25 mg PO BID lisinopriL [Lisinopril] Med 01/30/21 09:00 Ordered 40 mg PO DAILY oxyCODONE Med 01/29/21 18:20 Ordered 10 mg PO Q4H PRN Antiembolic Hose [OM.PC] Per Unit Routine Oth 01/29/21 18:20 Ordered Glucose Management Sub Q Reflex [OM.PC] Click to Edit Oth 01/29/21 18:15 Ordered Peripheral IV Insertion Adult [OM.PC] Stat Oth 01/29/21 13:41 Ordered VTE Mechanical Contraindications [AST] Per Unit Routine Oth 01/29/21 18:15 Ordered VTE Pharmacological Contraindications [AST] Per Unit Oth 01/29/21 18:15 Ordered Routine Resuscitation Status Routine Resus Stat 01/29/21 18:15 Ordered Medication Orders Acetaminophen (Acetaminophen 325 Mg Tab) 650 mg PO Q4H PRN PRN Reason: Pain (Mild 1-3)/fever Aspirin (Aspirin 81 Mg Tab.Ec) 81 mg PO DAILY FRANCISCA Carvedilol (Carvedilol 6.25 Mg Tab) 6.25 mg PO BID FRANCISCA Clopidogrel Bisulfate (Clopidogrel 75 Mg Tab) 75 mg PO DAILY FRANCISCA Docusate Sodium (Docusate Sodium 100 Mg Cap) 100 mg PO BID PRN PRN Reason: Constipation Sodium Chloride (Normal Saline) 1,000 mls @ 75 mls/hr IV ASDIRECTED [facility] Insulin Human Regular (Insulin Regular, Human 100 Units/Ml 3 Ml Vial) 0 unit SUBCUT TIDPC FRANCISCA; Protocol Morphine Sulfate (Morphine 2 Mg/Ml Syringe) 2 mg IVPUSH Q2H PRN PRN Reason: Pain (severe 7-10) Stop: 01/30/21 18:21 Ondansetron HCl (Ondansetron 4 Mg Tab.Dis) 4 mg PO Q6H PRN PRN Reason: nausea, able to take PO Oxycodone HCl (Oxycodone 5 Mg Tab) 10 mg PO Q4H PRN PRN Reason: Pain (moderate 4-6) Sodium Chloride (Sodium Chloride 0.9% 10 Ml Syringe) 10 ml FLUSH ASDIRECTED PRN PRN Reason: Keep Vein Open Last Admin: 01/29/21 16:33 Dose: 10 ml Documented by: ENRIQUE Temazepam (Temazepam 15 Mg Cap) 15 mg PO BEDTIME PRN PRN Reason: Sleep Assessment/Plan Comment:: The patient is a 75-year-old gentleman who was admitted to acute inpatient secondary to multiple comorbidities. The patient has been restarted on his antihypertensive medications and because of his previous history of hypertensive emergency will lower his blood pressure slowly and to have an excepted range of around 160 mmHg systolic. The patient will have an MRI of his brain to help identify any damage from the hypertensive crisis and/or stroke. While in the emergency department the patient was in supraventricular tachycardia and his rate is currently controlled. EKG shows right bundle branch block and as a result of this he will be kept on telemetry. The patient's vital signs will be monitored and his medications will be adjusted as necessary. The patient is also to have a carb constant diet. I have also ordered insulin sliding scale low-dose. Initially in the emergency department the patient had a markedly elevated glucose of greater than 300 and an A1c was ordered which was found to be 6.3%. The patient initially had elevations of his troponins and the emergency room physician consulted with cardiology and by a combination of hypertensive emergency and SVT it was thought that this was due to demand ischemia. Repeat troponin is been ordered. Repeat laboratory studies have been ordered for the morning. Magnesium levels has been ordered. The patient also says that he has been using cannabis while in [place] to help with his symptoms of anxiety and PTSD. The patient is at a fall risk and with his Plavix and aspirin I feel that the patient is at risk of bleeding and therefore he will have antiembolic stockings for DVT prophylaxis. The patient should be ready for discharge perhaps in 2 to 3 days. - Mortality Measure Prognosis:: Good
[2021-01-29] MEDS: Insulin Regular, Human 100 Units/ML 3 ML Vial SUBCUT SCH (20:36)
[2021-01-29] MEDS: Sodium Chloride 0.9% 1,000 ML IV SCH (20:40)
[2021-01-29] MEDS: Temazepam 15 MG Cap PO PRN (20:40)
[2021-01-29] MEDS: Carvedilol 6.25 MG Tab PO SCH (20:41)
[2021-01-29] MEDS: Donepezil 10 MG Tab PO SCH (20:41)
[2021-01-30] MEDS ORDERED: Potassium Chloride 10 MEQ Tab.ER PO ONE (06:52)
--- NOTE | 2021-01-30 07:48 | PCM.PN ---
- General Info Date of Service: 01/30/21 Admission Dx/Problem (Free Text): Admission Diagnosis/Problem Admission Diagnosis/Problem CVA, Cerebrovascular accident, SVT, demand ischemia of myocardium Subjective Update: The patient is a 75-year-old gentleman who had presented to the emergency department yesterday with slurred speech and left-sided facial droop. The pa roberto says that he is doing better today. He is denied any pain. The patient has been ambulating with assistance. He also has been tolerating his diet. Functional Status: Reports: Pain Controlled, Tolerating Diet - Review of Systems General: Reports: No Symptoms HEENT: Reports: No Symptoms Pulmonary: Reports: No Symptoms Cardiovascular: Reports: No Symptoms Gastrointestinal: Reports: No Symptoms Genitourinary: Reports: No Symptoms Musculoskeletal: Reports: No Symptoms Skin: Reports: No Symptoms Neurological: Reports: No Symptoms Psychiatric: Reports: No Symptoms - Patient Data Vitals - Most Recent: Last Vital Signs Temp 36.5 C 01/30/21 03:43 Pulse 63 01/30/21 03:38 Resp 20 01/30/21 03:38 BP 155/98 H 01/30/21 03:38 Pulse Ox 98 01/30/21 03:38 Weight - Most Recent: 70.987 kg I&O - Last 24 Hours: Intake & Output 01/29/21 01/30/21 01/30/21 22:59 06:59 14:59 Intake Total 627 Output Total 575 Balance 52 Lab Results Last 24 Hours: Laboratory Results - last 24 hr 01/29/21 01/29/21 01/29/21 Range/Units 11:44 13:37 13:39 WBC 7.67 (4.23-9.07) K/mm3 RBC 5.72 (4.63-6.08) M/mm3 Hgb 16.5 (13.7-17.5) gm/dl Hct 49.4 (40.1-51.0) % MCV 86.4 (79.0-92.2) fl MCH 28.8 (25.7-32.2) pg MCHC 33.4 (32.2-35.5) g/dl RDW Std Deviation 45.1 H (35.1-43.9) fL Plt Count 158 L (163-337) K/mm3 MPV 10.8 (9.4-12.3) fl Neut % (Auto) 67.6 (34.0-67.9) % Lymph % (Auto) 21.3 L (21.8-53.1) % [place] % (Auto) 8.1 (5.3-12.2) % Eos % (Auto) 2.5 (0.8-7.0) Baso % (Auto) 0.5 (0.1-1.2) % Neut # (Auto) 5.19 (1.78-5.38) K/mm3 Lymph # (Auto) 1.63 (1.32-3.57) K/mm3 [place] # (Auto) 0.62 (0.30-0.82) K/mm3 Eos # (Auto) 0.19 (0.04-0.54) K/mm3 Baso # (Auto) 0.04 (0.01-0.08) K/mm3 Sodium (136-145) mEq/L Potassium (3.5-5.1) mEq/L Chloride (98-107) mEq/L Carbon Dioxide (21-32) mEq/L Anion Gap (5-15) BUN (7-18) mg/dL Creatinine (0.7-1.3) mg/dL Est Cr Clr Drug Dosing Estimated GFR (MDRD) (>60) mL/min BUN/Creatinine Ratio (14-18) Glucose (83-115) mg/dL POC Glucose 297 H (70-99) mg/dL Hemoglobin A1c ( - 5.6) % Calcium (8.5-10.1) mg/dL Magnesium (1.8-2.4) mg/dl Total Bilirubin (0.2-1.0) mg/dL AST (15-37) U/L ALT (16-63) U/L Alkaline Phosphatase (46-116) U/L Troponin I (0.00-0.056) ng/mL NT-Pro-B Natriuret Pep (0-125) pg/mL Total Protein (6.4-8.2) g/dl Albumin (3.4-5.0) g/dl Globulin gm/dL Albumin/Globulin Ratio (1-2) SARS-CoV-2 RNA ([facility]) Negative (NEGATIVE) 01/29/21 01/29/21 01/29/21 Range/Units 13:39 13:39 13:39 WBC (4.23-9.07) K/mm3 RBC (4.63-6.08) M/mm3 Hgb (13.7-17.5) gm/dl Hct (40.1-51.0) % MCV (79.0-92.2) fl MCH (25.7-32.2) pg MCHC (32.2-35.5) g/dl RDW Std Deviation (35.1-43.9) fL Plt Count (163-337) K/mm3 MPV (9.4-12.3) fl Neut % (Auto) (34.0-67.9) % Lymph % (Auto) (21.8-53.1) % [place] % (Auto) (5.3-12.2) % Eos % (Auto) (0.8-7.0) Baso % (Auto) (0.1-1.2) % Neut # (Auto) (1.78-5.38) K/mm3 Lymph # (Auto) (1.32-3.57) K/mm3 [place] # (Auto) (0.30-0.82) K/mm3 Eos # (Auto) (0.04-0.54) K/mm3 Baso # (Auto) (0.01-0.08) K/mm3 Sodium 139 (136-145) mEq/L Potassium 3.5 (3.5-5.1) mEq/L Chloride 101 (98-107) mEq/L Carbon Dioxide 20 L (21-32) mEq/L Anion Gap 21.5 H (5-15) BUN 16 (7-18) mg/dL Creatinine 1.0 (0.7-1.3) mg/dL Est Cr Clr Drug Dosing TNP Estimated GFR (MDRD) > 60 (>60) mL/min BUN/Creatinine Ratio 16.0 (14-18) Glucose 308 H (83-115) mg/dL POC Glucose (70-99) mg/dL Hemoglobin A1c 6.3 H ( - 5.6) % Calcium 8.8 (8.5-10.1) mg/dL Magnesium (1.8-2.4) mg/dl Total Bilirubin 1.4 H (0.2-1.0) mg/dL AST 27 (15-37) U/L ALT 27 (16-63) U/L Alkaline Phosphatase 67 (46-116) U/L Troponin I 0.027 (0.00-0.056) ng/mL NT-Pro-B Natriuret Pep 691 H (0-125) pg/mL Total Protein 7.9 (6.4-8.2) g/dl Albumin 4.1 (3.4-5.0) g/dl Globulin 3.8 gm/dL Albumin/Globulin Ratio 1.1 (1-2) SARS-CoV-2 RNA ([facility]) (NEGATIVE) 01/29/21 01/29/21 01/29/21 Range/Units 16:40 20:32 23:00 WBC (4.23-9.07) K/mm3 RBC (4.63-6.08) M/mm3 Hgb (13.7-17.5) gm/dl Hct (40.1-51.0) % MCV (79.0-92.2) fl MCH (25.7-32.2) pg MCHC (32.2-35.5) g/dl RDW Std Deviation (35.1-43.9) fL Plt Count (163-337) K/mm3 MPV (9.4-12.3) fl Neut % (Auto) (34.0-67.9) % Lymph % (Auto) (21.8-53.1) % [place] % (Auto) (5.3-12.2) % Eos % (Auto) (0.8-7.0) Baso % (Auto) (0.1-1.2) % Neut # (Auto) (1.78-5.38) K/mm3 Lymph # (Auto) (1.32-3.57) K/mm3 [place] # (Auto) (0.30-0.82) K/mm3 Eos # (Auto) (0.04-0.54) K/mm3 Baso # (Auto) (0.01-0.08) K/mm3 Sodium (136-145) mEq/L Potassium (3.5-5.1) mEq/L Chloride (98-107) mEq/L Carbon Dioxide (21-32) mEq/L Anion Gap (5-15) BUN (7-18) mg/dL Creatinine (0.7-1.3) mg/dL Est Cr Clr Drug Dosing Estimated GFR (MDRD) (>60) mL/min BUN/Creatinine Ratio (14-18) Glucose (83-115) mg/dL POC Glucose 115 H (70-99) mg/dL Hemoglobin A1c ( - 5.6) % Calcium (8.5-10.1) mg/dL Magnesium (1.8-2.4) mg/dl Total Bilirubin (0.2-1.0) mg/dL AST (15-37) U/L ALT (16-63) U/L Alkaline Phosphatase (46-116) U/L Troponin I 0.109 H* 0.224 H* (0.00-0.056) ng/mL NT-Pro-B Natriuret Pep (0-125) pg/mL Total Protein (6.4-8.2) g/dl Albumin (3.4-5.0) g/dl Globulin gm/dL Albumin/Globulin Ratio (1-2) SARS-CoV-2 RNA ([facility]) (NEGATIVE) 01/30/21 01/30/21 01/30/21 Range/Units 06:15 06:15 07:02 WBC 7.12 (4.23-9.07) K/mm3 RBC 5.16 (4.63-6.08) M/mm3 Hgb 14.7 D (13.7-17.5) gm/dl Hct 44.7 (40.1-51.0) % MCV 86.6 (79.0-92.2) fl MCH 28.5 (25.7-32.2) pg MCHC 32.9 (32.2-35.5) g/dl RDW Std Deviation 44.3 H (35.1-43.9) fL Plt Count 155 L (163-337) K/mm3 MPV 10.7 (9.4-12.3) fl Neut % (Auto) 57.0 (34.0-67.9) % Lymph % (Auto) 26.0 (21.8-53.1) % [place] % (Auto) 13.1 H (5.3-12.2) % Eos % (Auto) 3.5 (0.8-7.0) Baso % (Auto) 0.4 (0.1-1.2) % Neut # (Auto) 4.06 (1.78-5.38) K/mm3 Lymph # (Auto) 1.85 (1.32-3.57) K/mm3 [place] # (Auto) 0.93 H (0.30-0.82) K/mm3 Eos # (Auto) 0.25 (0.04-0.54) K/mm3 Baso # (Auto) 0.03 (0.01-0.08) K/mm3 Sodium 140 (136-145) mEq/L Potassium 3.4 L (3.5-5.1) mEq/L Chloride 105 (98-107) mEq/L Carbon Dioxide 24 (21-32) mEq/L Anion Gap 14.4 (5-15) BUN 15 (7-18) mg/dL Creatinine 0.8 (0.7-1.3) mg/dL Est Cr Clr Drug Dosing 79.56 Estimated GFR (MDRD) > 60 (>60) mL/min BUN/Creatinine Ratio 18.8 H (14-18) Glucose 129 H (83-115) mg/dL POC Glucose 128 H (70-99) mg/dL Hemoglobin A1c ( - 5.6) % Calcium 8.1 L (8.5-10.1) mg/dL Magnesium 1.8 (1.8-2.4) mg/dl Total Bilirubin 1.0 (0.2-1.0) mg/dL AST 22 (15-37) U/L ALT 19 (16-63) U/L Alkaline Phosphatase 56 (46-116) U/L Troponin I (0.00-0.056) ng/mL NT-Pro-B Natriuret Pep (0-125) pg/mL Total Protein 6.7 (6.4-8.2) g/dl Albumin 3.3 L (3.4-5.0) g/dl Globulin 3.4 gm/dL Albumin/Globulin Ratio 1.0 (1-2) SARS-CoV-2 RNA ([facility]) (NEGATIVE) Med Orders - Current: Current Medications Acetaminophen (Acetaminophen 325 Mg Tab) 650 mg PO Q4H PRN PRN Reason: Pain (Mild 1-3)/fever Aspirin (Aspirin 81 Mg Tab.Ec) 81 mg PO DAILY [facility] Carvedilol (Carvedilol 6.25 Mg Tab) 6.25 mg PO BID [facility] Last Admin: 01/29/21 20:41 Dose: 6.25 mg Documented by: Clopidogrel Bisulfate (Clopidogrel 75 Mg Tab) 75 mg PO DAILY [facility] Cyclobenzaprine HCl (Cyclobenzaprine 10 Mg Tab) 10 mg PO BID PRN PRN Reason: Pain Docusate Sodium (Docusate Sodium 100 Mg Cap) 100 mg PO BID PRN PRN Reason: Constipation Donepezil HCl (Donepezil 10 Mg Tab) 10 mg PO BEDTIME [facility] Last Admin: 01/29/21 20:41 Dose: 10 mg Documented by: Sodium Chloride (Normal Saline) 1,000 mls @ 75 mls/hr IV ASDIRECTED [facility] Last Admin: 01/29/21 20:40 Dose: 75 mls/hr Documented by: Insulin Human Regular (Insulin Regular, Human 100 Units/Ml 3 Ml Vial) 0 unit SUBCUT TIDPC [facility]; Protocol Last Admin: 01/29/21 20:36 Dose: Not Given Documented by: Lisinopril (Lisinopril 20 Mg Tab) 40 mg PO DAILY [facility] Morphine Sulfate (Morphine 2 Mg/Ml Syringe) 2 mg IVPUSH Q2H PRN PRN Reason: Pain (severe 7-10) Stop: 01/30/21 18:21 Ondansetron HCl (Ondansetron 4 Mg Tab.Dis) 4 mg PO Q6H PRN PRN Reason: nausea, able to take PO Oxycodone HCl (Oxycodone 5 Mg Tab) 10 mg PO Q4H PRN PRN Reason: Pain (moderate 4-6) Sodium Chloride (Sodium Chloride 0.9% 10 Ml Syringe) 10 ml FLUSH ASDIRECTED PRN PRN Reason: Keep Vein Open Last Admin: 01/29/21 16:33 Dose: 10 ml Documented by: Temazepam (Temazepam 15 Mg Cap) 15 mg PO BEDTIME PRN PRN Reason: Sleep Last Admin: 01/29/21 20:40 Dose: 15 mg Documented by: Discontinued Medications Aspirin (Aspirin 81 Mg Tab.Chew) 324 mg PO ONETIME ONE Stop: 01/29/21 17:35 Last Admin: 01/29/21 18:11 Dose: 324 mg Documented by: Clopidogrel Bisulfate (Clopidogrel 75 Mg Tab) 75 mg PO ONETIME ONE Stop: 01/30/21 17:36 Clopidogrel Bisulfate (Clopidogrel 75 Mg Tab) 75 mg PO ONETIME ONE Stop: 01/29/21 18:03 Last Admin: 01/29/21 18:11 Dose: 75 mg Documented by: Diltiazem HCl (Diltiazem 50 Mg/10 Ml Sdv) 20 mg IVPUSH ONETIME ONE Stop: 01/29/21 14:32 Last Admin: 01/29/21 14:36 Dose: 15 mg Documented by: Metoprolol Tartrate (Metoprolol Tartrate 5 Mg/5 Ml Sdv) 5 mg IVPUSH ONETIME ONE Stop: 01/29/21 13:53 Last Admin: 01/29/21 14:00 Dose: 5 mg Documented by: Metoprolol Tartrate (Metoprolol Tartrate 5 Mg/5 Ml Sdv) 5 mg IVPUSH ONETIME ONE Stop: 01/29/21 14:19 Last Admin: 01/29/21 14:30 Dose: 2.5 mg Documented by: Potassium Chloride (Potassium Chloride 10 Meq Tab.Er) 10 meq PO ONETIME ONE Stop: 01/30/21 06:53 - Exam Quality Assessment: DVT Prophylaxis. No: Supplemental Oxygen General: Alert, Oriented, Cooperative HEENT: Pupils Equal, Pupils Reactive, EOMI, Mucous Membr. Moist/[place] Neck: Supple, Trachea Midline Lungs: Clear to Auscultation, Normal Respiratory Effort Cardiovascular: Regular Rate, Regular Rhythm, Murmurs (3 out of 6 systolic) GI/Abdominal Exam: Normal Bowel Sounds, Soft, Non-Tender, No Distention (Male) Exam: Deferred Back Exam: Normal Inspection, Full Range of Motion Extremities: Normal Inspection, No Pedal Edema Skin: Warm, Dry, Intact Neurological: No New Focal Deficit, Other (Left-sided facial droop. Forehead spared). No: Normal Speech (Speech somewhat improved over last night.) Psy/Mental Status: Alert, Normal Affect, Normal Mood - Patient Data Lab Results Last 24 hrs: Laboratory Results - last 24 hr 01/29/21 01/29/21 01/29/21 Range/Units 11:44 13:37 13:39 WBC 7.67 (4.23-9.07) K/mm3 RBC 5.72 (4.63-6.08) M/mm3 Hgb 16.5 (13.7-17.5) gm/dl Hct 49.4 (40.1-51.0) % MCV 86.4 (79.0-92.2) fl MCH 28.8 (25.7-32.2) pg MCHC 33.4 (32.2-35.5) g/dl RDW Std Deviation 45.1 H (35.1-43.9) fL Plt Count 158 L (163-337) K/mm3 MPV 10.8 (9.4-12.3) fl Neut % (Auto) 67.6 (34.0-67.9) % Lymph % (Auto) 21.3 L (21.8-53.1) % [place] % (Auto) 8.1 (5.3-12.2) % Eos % (Auto) 2.5 (0.8-7.0) Baso % (Auto) 0.5 (0.1-1.2) % Neut # (Auto) 5.19 (1.78-5.38) K/mm3 Lymph # (Auto) 1.63 (1.32-3.57) K/mm3 [place] # (Auto) 0.62 (0.30-0.82) K/mm3 Eos # (Auto) 0.19 (0.04-0.54) K/mm3 Baso # (Auto) 0.04 (0.01-0.08) K/mm3 Sodium (136-145) mEq/L Potassium (3.5-5.1) mEq/L Chloride (98-107) mEq/L Carbon Dioxide (21-32) mEq/L Anion Gap (5-15) BUN (7-18) mg/dL Creatinine (0.7-1.3) mg/dL Est Cr Clr Drug Dosing Estimated GFR (MDRD) (>60) mL/min BUN/Creatinine Ratio (14-18) Glucose (83-115) mg/dL POC Glucose 297 H (70-99) mg/dL Hemoglobin A1c ( - 5.6) % Calcium (8.5-10.1) mg/dL Magnesium (1.8-2.4) mg/dl Total Bilirubin (0.2-1.0) mg/dL AST (15-37) U/L ALT (16-63) U/L Alkaline Phosphatase (46-116) U/L Troponin I (0.00-0.056) ng/mL NT-Pro-B Natriuret Pep (0-125) pg/mL Total Protein (6.4-8.2) g/dl Albumin (3.4-5.0) g/dl Globulin gm/dL Albumin/Globulin Ratio (1-2) SARS-CoV-2 RNA ([facility]) Negative (NEGATIVE) 01/29/21 01/29/21 01/29/21 Range/Units 13:39 13:39 13:39 WBC (4.23-9.07) K/mm3 RBC (4.63-6.08) M/mm3 Hgb (13.7-17.5) gm/dl Hct (40.1-51.0) % MCV (79.0-92.2) fl MCH (25.7-32.2) pg MCHC (32.2-35.5) g/dl RDW Std Deviation (35.1-43.9) fL Plt Count (163-337) K/mm3 MPV (9.4-12.3) fl Neut % (Auto) (34.0-67.9) % Lymph % (Auto) (21.8-53.1) % [place] % (Auto) (5.3-12.2) % Eos % (Auto) (0.8-7.0) Baso % (Auto) (0.1-1.2) % Neut # (Auto) (1.78-5.38) K/mm3 Lymph # (Auto) (1.32-3.57) K/mm3 [place] # (Auto) (0.30-0.82) K/mm3 Eos # (Auto) (0.04-0.54) K/mm3 Baso # (Auto) (0.01-0.08) K/mm3 Sodium 139 (136-145) mEq/L Potassium 3.5 (3.5-5.1) mEq/L Chloride 101 (98-107) mEq/L Carbon Dioxide 20 L (21-32) mEq/L Anion Gap 21.5 H (5-15) BUN 16 (7-18) mg/dL Creatinine 1.0 (0.7-1.3) mg/dL Est Cr Clr Drug Dosing TNP Estimated GFR (MDRD) > 60 (>60) mL/min BUN/Creatinine Ratio 16.0 (14-18) Glucose 308 H (83-115) mg/dL POC Glucose (70-99) mg/dL Hemoglobin A1c 6.3 H ( - 5.6) % Calcium 8.8 (8.5-10.1) mg/dL Magnesium (1.8-2.4) mg/dl Total Bilirubin 1.4 H (0.2-1.0) mg/dL AST 27 (15-37) U/L ALT 27 (16-63) U/L Alkaline Phosphatase 67 (46-116) U/L Troponin I 0.027 (0.00-0.056) ng/mL NT-Pro-B Natriuret Pep 691 H (0-125) pg/mL Total Protein 7.9 (6.4-8.2) g/dl Albumin 4.1 (3.4-5.0) g/dl Globulin 3.8 gm/dL Albumin/Globulin Ratio 1.1 (1-2) SARS-CoV-2 RNA ([facility]) (NEGATIVE) 01/29/21 01/29/21 01/29/21 Range/Units 16:40 20:32 23:00 WBC (4.23-9.07) K/mm3 RBC (4.63-6.08) M/mm3 Hgb (13.7-17.5) gm/dl Hct (40.1-51.0) % MCV (79.0-92.2) fl MCH (25.7-32.2) pg MCHC (32.2-35.5) g/dl RDW Std Deviation (35.1-43.9) fL Plt Count (163-337) K/mm3 MPV (9.4-12.3) fl Neut % (Auto) (34.0-67.9) % Lymph % (Auto) (21.8-53.1) % [place] % (Auto) (5.3-12.2) % Eos % (Auto) (0.8-7.0) Baso % (Auto) (0.1-1.2) % Neut # (Auto) (1.78-5.38) K/mm3 Lymph # (Auto) (1.32-3.57) K/mm3 [place] # (Auto) (0.30-0.82) K/mm3 Eos # (Auto) (0.04-0.54) K/mm3 Baso # (Auto) (0.01-0.08) K/mm3 Sodium (136-145) mEq/L Potassium (3.5-5.1) mEq/L Chloride (98-107) mEq/L Carbon Dioxide (21-32) mEq/L Anion Gap (5-15) BUN (7-18) mg/dL Creatinine (0.7-1.3) mg/dL Est Cr Clr Drug Dosing Estimated GFR (MDRD) (>60) mL/min BUN/Creatinine Ratio (14-18) Glucose (83-115) mg/dL POC Glucose 115 H (70-99) mg/dL Hemoglobin A1c ( - 5.6) % Calcium (8.5-10.1) mg/dL Magnesium (1.8-2.4) mg/dl Total Bilirubin (0.2-1.0) mg/dL AST (15-37) U/L ALT (16-63) U/L Alkaline Phosphatase (46-116) U/L Troponin I 0.109 H* 0.224 H* (0.00-0.056) ng/mL NT-Pro-B Natriuret Pep (0-125) pg/mL Total Protein (6.4-8.2) g/dl Albumin (3.4-5.0) g/dl Globulin gm/dL Albumin/Globulin Ratio (1-2) SARS-CoV-2 RNA ([facility]) (NEGATIVE) 01/30/21 01/30/21 01/30/21 Range/Units 06:15 06:15 07:02 WBC 7.12 (4.23-9.07) K/mm3 RBC 5.16 (4.63-6.08) M/mm3 Hgb 14.7 D (13.7-17.5) gm/dl Hct 44.7 (40.1-51.0) % MCV 86.6 (79.0-92.2) fl MCH 28.5 (25.7-32.2) pg MCHC 32.9 (32.2-35.5) g/dl RDW Std Deviation 44.3 H (35.1-43.9) fL Plt Count 155 L (163-337) K/mm3 MPV 10.7 (9.4-12.3) fl Neut % (Auto) 57.0 (34.0-67.9) % Lymph % (Auto) 26.0 (21.8-53.1) % [place] % (Auto) 13.1 H (5.3-12.2) % Eos % (Auto) 3.5 (0.8-7.0) Baso % (Auto) 0.4 (0.1-1.2) % Neut # (Auto) 4.06 (1.78-5.38) K/mm3 Lymph # (Auto) 1.85 (1.32-3.57) K/mm3 [place] # (Auto) 0.93 H (0.30-0.82) K/mm3 Eos # (Auto) 0.25 (0.04-0.54) K/mm3 Baso # (Auto) 0.03 (0.01-0.08) K/mm3 Sodium 140 (136-145) mEq/L Potassium 3.4 L (3.5-5.1) mEq/L Chloride 105 (98-107) mEq/L Carbon Dioxide 24 (21-32) mEq/L Anion Gap 14.4 (5-15) BUN 15 (7-18) mg/dL Creatinine 0.8 (0.7-1.3) mg/dL Est Cr Clr Drug Dosing 79.56 Estimated GFR (MDRD) > 60 (>60) mL/min BUN/Creatinine Ratio 18.8 H (14-18) Glucose 129 H (83-115) mg/dL POC Glucose 128 H (70-99) mg/dL Hemoglobin A1c ( - 5.6) % Calcium 8.1 L (8.5-10.1) mg/dL Magnesium 1.8 (1.8-2.4) mg/dl Total Bilirubin 1.0 (0.2-1.0) mg/dL AST 22 (15-37) U/L ALT 19 (16-63) U/L Alkaline Phosphatase 56 (46-116) U/L Troponin I (0.00-0.056) ng/mL NT-Pro-B Natriuret Pep (0-125) pg/mL Total Protein 6.7 (6.4-8.2) g/dl Albumin 3.3 L (3.4-5.0) g/dl Globulin 3.4 gm/dL Albumin/Globulin Ratio 1.0 (1-2) SARS-CoV-2 RNA ([facility]) (NEGATIVE) Result Diagrams: 01/30/21 06:15 01/30/21 06:15 Sepsis Event Note - Evaluation Sepsis Screening Result: No Definite Risk - Focused Exam Vital Signs: Vital Signs Temp Pulse Resp BP Pulse Ox 01/30/21 03:43 36.5 C 01/30/21 03:38 63 20 155/98 H 98 01/30/21 00:22 36.8 C 73 18 163/114 H 95 01/29/21 20:41 74 179/95 H - Problem List & Annotations (1) CVA (cerebral vascular accident) SNOMED Code(s): 346293951 Code(s): I63.9 - CEREBRAL INFARCTION, UNSPECIFIED Status: Acute Priority: High Current Visit: Yes Qualifiers: CVA mechanism: unspecified Qualified Code(s): I63.9 - Cerebral infarction, unspecified (2) Hypertension SNOMED Code(s): 41962812 Code(s): I10 - ESSENTIAL (PRIMARY) HYPERTENSION Status: Chronic Priority: High Current Visit: Yes Qualifiers: Hypertension type: essential hypertension Qualified Code(s): I10 - Essential (primary) hypertension (3) Right bundle branch block SNOMED Code(s): 53546915 Code(s): I45.10 - UNSPECIFIED RIGHT BUNDLE-BRANCH BLOCK Status: Chronic Priority: High Current Visit: Yes (4) Demand ischemia of myocardium SNOMED Code(s): 276880795, 353676297515379 Code(s): I24.8 - OTHER FORMS OF ACUTE ISCHEMIC HEART DISEASE Status: Chronic Priority: High Current Visit: Yes (5) PTSD (post-traumatic stress disorder) SNOMED Code(s): 70935477 Code(s): F43.10 - POST-TRAUMATIC STRESS DISORDER, UNSPECIFIED Status: Chronic Priority: Low Current Visit: Yes (6) Atrial flutter with rapid ventricular response SNOMED Code(s): 7930409, 2449951 Code(s): I48.92 - UNSPECIFIED ATRIAL FLUTTER Status: Resolved Priority: High Current Visit: Yes (7) Elevated troponin SNOMED Code(s): 752562889, 510217636, 593128614 Code(s): R77.8 - OTHER SPECIFIED ABNORMALITIES OF PLASMA PROTEINS Status: Acute Priority: High Current Visit: Yes (8) Chronic pain SNOMED Code(s): 36003737 Code(s): G89.29 - OTHER CHRONIC PAIN Status: Chronic Priority: Medium Current Visit: Yes Qualifiers: Chronic pain type: other chronic pain Qualified Code(s): G89.29 - Other chronic pain (9) Hyperglycemia SNOMED Code(s): 38991267 Code(s): R73.9 - HYPERGLYCEMIA, UNSPECIFIED Status: Chronic Priority: High Current Visit: Yes (10) Prediabetes SNOMED Code(s): 120270478 Code(s): R73.03 - PREDIABETES Status: Chronic Priority: High Current Visit: Yes - Problem List Review Problem List Initiated/Reviewed/Updated: Yes - My Orders Last 24 Hours: My Active Orders 01/29/21 18:15 Up With Assistance [RC] BID Glucose Management Sub Q Reflex [OM.PC] Click to Edit VTE Mechanical Contraindications [AST] Per Unit Routine VTE Pharmacological Contraindications [AST] Per Unit Routine Resuscitation Status Routine 01/29/21 18:17 Cardiac Monitoring [RC] CONTINUOUS Diabetes Education [RC] Click to Edit 01/29/21 18:20 Antiembolic Devices [RC] BID Blood Glucose Check, Bedside [RC] QIDACANDBED VTE/DVT Education [RC] DAILY Vital Signs [RC] Q4HR Consult to Diabetic Nurse Specialist [CONS] Routine OT Evaluation and Treatment [CONS] Routine PT Evaluation and Treatment [CONS] Routine INTEGRATION SPECIALIST Evaluation and Treatment [CONS] Routine Acetaminophen [TylenoL] 650 mg PO Q4H PRN Docusate Sodium [Colace] 100 mg PO BID PRN Morphine 2 mg IVPUSH Q2H PRN Ondansetron [Zofran ODT] 4 mg PO Q6H PRN Temazepam [Restoril] 15 mg PO BEDTIME PRN oxyCODONE 10 mg PO Q4H PRN Antiembolic Hose [OM.PC] Per Unit Routine 01/29/21 18:30 Sodium Chloride 0.9% [Normal Saline] 1,000 ml IV ASDIRECTED 01/29/21 18:31 Cyclobenzaprine [Flexeril] 10 mg PO BID PRN 01/29/21 18:44 Oxygen Therapy [RC] PRN 01/29/21 19:00 Insulin Regular, Human [HumuLIN R] See Protocol SUBCUT TIDPC 01/29/21 19:20 Communication Order [RC] BID 01/29/21 21:00 Donepezil [Aricept] 10 mg PO BEDTIME carvediloL [Coreg] 6.25 mg PO BID 01/30/21 Breakfast Consistent Carbohydrate Diet [DIET] 01/30/21 08:30 Brain wo Cont [MR] Routine 01/30/21 09:00 Aspirin [Halfprin] 81 mg PO DAILY Clopidogrel [Plavix] 75 mg PO DAILY lisinopriL [Prinivil] 40 mg PO DAILY - Plan Plan:: The patient is a 75-year-old gentleman who was admitted to acute inpatient secondary to multiple comorbidities. The patient has been restarted on his antihypertensive medications and because of his previous history of hypertensive emergency will lower his blood pressure slowly and to have an excepted range of around 160 mmHg systolic. The patient will have an MRI of his brain to help identify any damage from the hypertensive crisis and/or stroke. While in the emergency department the patient was in supraventricular tachycardia and his rate is currently controlled. EKG shows right bundle branch block and as a result of this he will be kept on telemetry. The patient's vital signs will be monitored and his medications will be adjusted as necessary. The patient is also to have a carb constant diet. I have also ordered insulin sliding scale low-dose. Initially in the emergency department the patient had a markedly elevated glucose of greater than 300 and an A1c was ordered which was found to be 6.3%. The patient initially had elevations of his troponins and the emerge ncy room physician consulted with cardiology and by a combination of hypertensive emergency and SVT it was thought that this was due to demand ischemia. Repeat troponin is been ordered. Repeat laboratory studies have been ordered for the morning. Magnesium levels has been ordered. The patient also says that he has been using cannabis while in [place] to help with his symptoms of anxiety and PTSD. The patient is at a fall risk and with his Plavix and aspirin I feel that the patient is at risk of bleeding and therefore he will have antiembolic stockings for DVT prophylaxis. The patient should be ready for discharge perhaps in 2 to 3 days. The patient is a 75-year-old gentleman who had been admitted secondary to stroke as well as hypertensive emergency. MRI of the brain obtained showed small diffusion abnormality within the right centrum semiovale comparable with a fair ly acute infarct. I have discussed the findings with the patient. I have also discussed the case with Dr. Nicolas, fuel cell technician at [facility]. It is thought that the patient's elevations in troponins are not in fact demand ischemia. The patient's EKG still shows right bundle branch block. The patient will be kept on telemetry. Continue with physical therapy and Occupational Therapy. Speech therapy to evaluate. perinatal educator to assist the patient. Continue with the patient's DVT prophylaxis with antiembolic stockings. He is on Plavix already. Repeat laboratory studies have been ordered. Continue with carb constant diet. The patient should be appropriate for discharge in 1 to 2 days and will need to have neurologic follow-up, cardiology follow-up and [facility] appointments.
[2021-01-30] MEDS: Lisinopril 20 MG Tab PO SCH (08:44)
[2021-01-30] MEDS: Aspirin 81 MG Tab.EC PO SCH (08:44)
--- NOTE | 2021-01-30 08:44 | MR ---
MRI brain Technique: T1 sagittal; T2, T2 FLAIR, T1 and diffusion axial; T1 and T2 gradient echo coronal images were also obtained. Comparison: Prior head CT study of 01/29/21. Findings: Ventricles along with basal cisterns and sulci over the convexities are moderately prominent. Normal signal void is seen within the major cerebral arteries within the skull base. Scattered areas of increased signal are seen within the periventricular and subcortical white matter compatible with small vessel ischemic demyelination change. Small old infarct is noted within the left parietal convexity. Diffusion weighted images show a focal small area of abnormal diffusion within the right centrum semi-ovale compatible with a small white matter infarct. This finding measures approximately 1.3 cm in size. No other abnormal diffusion areas are seen. No midline shift or mass effect is seen. Visualized paranasal sinuses and mastoid sinuses show nothing definitely acute. Impression: 1. Stable senescent change as noted above. 2. Small diffusion abnormality within the right centrum semi-ovale compatible with small fairly acute infarct. This finding measures 1.3 cm in size and shows mild increased signal on the FLAIR sequence compatible with irreversible change. 3. No other acute abnormality is appreciated. Diagnostic code #3
[2021-01-30] MEDS: Carvedilol 6.25 MG Tab PO SCH ×2 (08:45→21:24)
[2021-01-30] MEDS: Clopidogrel 75 MG Tab PO SCH (08:45)
[2021-01-30] MEDS: Insulin Regular, Human 100 Units/ML 3 ML Vial SUBCUT SCH ×3 (09:18→18:49)
[2021-01-30] MEDS: Sodium Chloride 0.9% 1,000 ML IV SCH (11:48)
[2021-01-30] MEDS ORDERED: Clopidogrel 75 MG Tab PO ONE (17:35)
[2021-01-30] MEDS: Temazepam 15 MG Cap PO PRN (21:24)
[2021-01-30] MEDS: Donepezil 10 MG Tab PO SCH (21:25)
[2021-01-31] MEDS: Sodium Chloride 0.9% 1,000 ML IV SCH ×2 (02:36→16:44)
[2021-01-31] MEDS: Carvedilol 6.25 MG Tab PO SCH ×2 (08:11→21:01)
[2021-01-31] MEDS: Lisinopril 20 MG Tab PO SCH (08:11)
[2021-01-31] MEDS: Clopidogrel 75 MG Tab PO SCH (08:11)
[2021-01-31] MEDS: Aspirin 81 MG Tab.EC PO SCH (08:11)
[2021-01-31] MEDS: Insulin Regular, Human 100 Units/ML 3 ML Vial SUBCUT SCH ×3 (08:12→17:42)
[2021-01-31] MEDS ORDERED: hydrALAZINE 25 MG Tab PO ONE (10:00)
[2021-01-31] MEDS ORDERED: Labetalol 100 MG/20 ML MDV IVPUSH PRN (10:02)
[2021-01-31] MEDS ORDERED: Labetalol 100 MG/20 ML MDV IV PRN (11:38)
--- NOTE | 2021-01-31 11:44 | PCM.PN ---
- General Info Date of Service: 01/31/21 Admission Dx/Problem (Free Text): Admission Diagnosis/Problem Admission Diagnosis/Problem CVA, Cerebrovascular accident, SVT, demand ischemia of myocardium Subjective Update: The patient is a 75-year-old gentleman who was admitted on January 29, 2021 secondary to subacute stroke. The patient had waited 3 days to present to the emergency room. The patient in ER was noted to be in hypertensive emergency. The patient's blood pressure have been controlled in the emergency department to keep his systolic blood pressure around 160 mmHg. The patient today said that he had a discussion with his and was anxious about how his is going to take care of herself. The patient's blood pressure spiked upward greater than 200 mmHg. The patient is feeling somewhat anxious but he is otherwise feeling better. The patient still has deficits with speech and left-sided facial droop. The patient has been tolerating his diet. Functional Status: Reports: Pain Controlled, Tolerating Diet - Review of Systems General: Reports: Weakness HEENT: Reports: No Symptoms Pulmonary: Reports: No Symptoms Cardiovascular: Reports: No Symptoms Gastrointestinal: Reports: No Symptoms Genitourinary: Reports: No Symptoms Musculoskeletal: Reports: No Symptoms Skin: Reports: No Symptoms Neurological: Reports: Pre-Existing Deficit Psychiatric: Reports: No Symptoms - Patient Data Vitals - Most Recent: Last Vital Signs Temp 36.6 C 01/31/21 03:31 Pulse 80 01/31/21 08:11 Resp 18 01/31/21 07:35 BP 196/98 H 01/31/21 10:30 Pulse Ox 98 01/31/21 07:35 Weight - Most Recent: 71.214 kg I&O - Last 24 Hours: Intake & Output 01/30/21 01/31/21 01/31/21 22:59 06:59 14:59 Intake Total 1198 790 Output Total 1025 1950 Balance 173 -1160 Lab Results Last 24 Hours: Laboratory Results - last 24 hr 01/30/21 01/30/21 01/31/21 Range/Units 17:54 21:33 06:34 POC Glucose 121 H 139 H 135 H (70-99) mg/dL 01/31/21 Range/Units 10:37 POC Glucose 126 H (70-99) mg/dL Med Orders - Current: Current Medications Acetaminophen (Acetaminophen 325 Mg Tab) 650 mg PO Q4H PRN PRN Reason: Pain (Mild 1-3)/fever Aspirin (Aspirin 81 Mg Tab.Ec) 81 mg PO DAILY [facility] Last Admin: 01/31/21 08:11 Dose: 81 mg Documented by: Carvedilol (Carvedilol 6.25 Mg Tab) 6.25 mg PO BID [facility] Last Admin: 01/31/21 08:11 Dose: 6.25 mg Documented by: Clopidogrel Bisulfate (Clopidogrel 75 Mg Tab) 75 mg PO DAILY [facility] Last Admin: 01/31/21 08:11 Dose: 75 mg Documented by: Cyclobenzaprine HCl (Cyclobenzaprine 10 Mg Tab) 10 mg PO BID PRN PRN Reason: Pain Docusate Sodium (Docusate Sodium 100 Mg Cap) 100 mg PO BID PRN PRN Reason: Constipation Donepezil HCl (Donepezil 10 Mg Tab) 10 mg PO BEDTIME [facility] Last Admin: 01/30/21 21:25 Dose: 10 mg Documented by: Hydrochlorothiazide (Hydrochlorothiazide 25 Mg Tab) 25 mg PO DAILY [facility] Sodium Chloride (Normal Saline) 1,000 mls @ 75 mls/hr IV ASDIRECTED [facility] Last Admin: 01/31/21 02:36 Dose: 75 mls/hr Documented by: Insulin Human Regular (Insulin Regular, Human 100 Units/Ml 3 Ml Vial) 0 unit SUBCUT [facility]; Protocol Last Admin: 01/31/21 08:12 Dose: Not Given Documented by: Labetalol HCl (Labetalol 100 Mg/20 Ml Mdv) 5 mg IV Q6H PRN PRN Reason: SEE LABEL COMMENTS Lisinopril (Lisinopril 20 Mg Tab) 40 mg PO DAILY [facility] Last Admin: 01/31/21 08:11 Dose: 40 mg Documented by: Ondansetron HCl (Ondansetron 4 Mg Tab.Dis) 4 mg PO Q6H PRN PRN Reason: nausea, able to take PO Oxycodone HCl (Oxycodone 5 Mg Tab) 10 mg PO Q4H PRN PRN Reason: Pain (moderate 4-6) Sodium Chloride (Sodium Chloride 0.9% 10 Ml Syringe) 10 ml FLUSH ASDIRECTED PRN PRN Reason: Keep Vein Open Last Admin: 01/29/21 16:33 Dose: 10 ml Documented by: Temazepam (Temazepam 15 Mg Cap) 15 mg PO BEDTIME PRN PRN Reason: Sleep Last Admin: 01/30/21 21:24 Dose: 15 mg Documented by: Discontinued Medications Aspirin (Aspirin 81 Mg Tab.Chew) 324 mg PO ONETIME ONE Stop: 01/29/21 17:35 Last Admin: 01/29/21 18:11 Dose: 324 mg Documented by: Clopidogrel Bisulfate (Clopidogrel 75 Mg Tab) 75 mg PO ONETIME ONE Stop: 01/30/21 17:36 Clopidogrel Bisulfate (Clopidogrel 75 Mg Tab) 75 mg PO ONETIME ONE Stop: 01/29/21 18:03 Last Admin: 01/29/21 18:11 Dose: 75 mg Documented by: Diltiazem HCl (Diltiazem 50 Mg/10 Ml Sdv) 20 mg IVPUSH ONETIME ONE Stop: 01/29/21 14:32 Last Admin: 01/29/21 14:36 Dose: 15 mg Documented by: Hydralazine HCl (Hydralazine 25 Mg Tab) 25 mg PO ONETIME ONE Stop: 01/31/21 10:01 Last Admin: 01/31/21 09:55 Dose: 25 mg Documented by: Labetalol HCl (Labetalol 100 Mg/20 Ml Mdv) 5 mg IVPUSH Q4H PRN; Protocol PRN Reason: Hypertension Metoprolol Tartrate (Metoprolol Tartrate 5 Mg/5 Ml Sdv) 5 mg IVPUSH ONETIME ONE Stop: 01/29/21 13:53 Last Admin: 01/29/21 14:00 Dose: 5 mg Documented by: Metoprolol Tartrate (Metoprolol Tartrate 5 Mg/5 Ml Sdv) 5 mg IVPUSH ONETIME ONE Stop: 01/29/21 14:19 Last Admin: 01/29/21 14:30 Dose: 2.5 mg Documented by: Morphine Sulfate (Morphine 2 Mg/Ml Syringe) 2 mg IVPUSH Q2H PRN PRN Reason: Pain (severe 7-10) Stop: 01/30/21 18:21 Potassium Chloride (Potassium Chloride 10 Meq Tab.Er) 10 meq PO ONETIME ONE Stop: 01/30/21 06:53 Last Admin: 01/30/21 08:44 Dose: 10 meq Documented by: - Exam Quality Assessment: DVT Prophylaxis. No: Supplemental Oxygen General: Alert, Oriented, Cooperative, No Acute Distress HEENT: Pupils Equal, Pupils Reactive, EOMI Neck: Supple, Trachea Midline Lungs: Clear to Auscultation, Normal Respiratory Effort Cardiovascular: Regular Rate, Regular Rhythm GI/Abdominal Exam: Normal Bowel Sounds, Soft, Non-Tender, No Distention (Male) Exam: Deferred Back Exam: Normal Inspection, Full Range of Motion Extremities: Normal Inspection, No Pedal Edema Skin: Warm, Dry, Intact Wound/Incisions: Healing Well Neurological: No New Focal Deficit, Other (Slurred speech, left-sided facial droop, pre-existing) Psy/Mental Status: Alert, Normal Affect - Patient Data Lab Results Last 24 hrs: Laboratory Results - last 24 hr 01/30/21 01/30/21 01/31/21 Range/Units 17:54 21:33 06:34 POC Glucose 121 H 139 H 135 H (70-99) mg/dL 01/31/21 Range/Units 10:37 POC Glucose 126 H (70-99) mg/dL Result Diagrams: 01/30/21 06:15 01/30/21 06:15 Sepsis Event Note - Evaluation Sepsis Screening Result: No Definite Risk - Focused Exam Vital Signs: Vital Signs Temp Pulse Resp BP BP Pulse Ox 01/31/21 10:30 196/98 H 01/31/21 09:55 200/108 H 01/31/21 08:11 80 179/105 H 01/31/21 07:35 80 18 179/105 H 98 01/31/21 03:31 36.6 C 71 16 179/101 H 100 01/30/21 23:47 36.8 C 67 16 158/113 H 95 - Problem List & Annotations (1) CVA (cerebral vascular accident) SNOMED Code(s): 308218546 Code(s): I63.9 - CEREBRAL INFARCTION, UNSPECIFIED Status: Acute Priority: High Current Visit: Yes Qualifiers: CVA mechanism: unspecified Qualified Code(s): I63.9 - Cerebral infarction, unspecified Annotation/Comment:: Subacute infarct (2) Hypertension SNOMED Code(s): 71329600 Code(s): I10 - ESSENTIAL (PRIMARY) HYPERTENSION Status: Chronic Priority: High Current Visit: Yes Qualifiers: Hypertension type: essential hypertension Qualified Code(s): I10 - Essential (primary) hypertension (3) Right bundle branch block SNOMED Code(s): 18294643 Code(s): I45.10 - UNSPECIFIED RIGHT BUNDLE-BRANCH BLOCK Status: Chronic Priority: High Current Visit: Yes (4) Demand ischemia of myocardium SNOMED Code(s): 586536875, 895707504317248 Code(s): I24.8 - OTHER FORMS OF ACUTE ISCHEMIC HEART DISEASE Status: [employer] [place] Priority: High Current Visit: Yes (5) PTSD (post-traumatic stress disorder) SNOMED Code(s): 66713339 Code(s): F43.10 - POST-TRAUMATIC STRESS DISORDER, UNSPECIFIED Status: Chronic Priority: Low Current Visit: Yes (6) Atrial flutter with rapid ventricular response SNOMED Code(s): 1276742, 5057932 Code(s): I48.92 - UNSPECIFIED ATRIAL FLUTTER Status: Resolved Priority: High Current Visit: Yes (7) Elevated troponin SNOMED Code(s): 678647591, 757856405, 193730123 Code(s): R77.8 - OTHER SPECIFIED ABNORMALITIES OF PLASMA PROTEINS Status: Acute Priority: High Current Visit: Yes (8) Chronic pain SNOMED Code(s): 68746563 Code(s): G89.29 - OTHER CHRONIC PAIN Status: Chronic Priority: Medium Current Visit: Yes Qualifiers: Chronic pain type: other chronic pain Qualified Code(s): G89.29 - Other chronic pain (9) Hyperglycemia SNOMED Code(s): 00296123 Code(s): R73.9 - HYPERGLYCEMIA, UNSPECIFIED Status: Chronic Priority: High Current Visit: Yes (10) Prediabetes SNOMED Code(s): 075853735 Code(s): R73.03 - PREDIABETES Status: Chronic Priority: High Current Visit: Yes - Problem List Review Problem List Initiated/Reviewed/Updated: Yes - My Orders Last 24 Hours: My Active Orders 01/30/21 Dinner [employer] Dysphagia Diet [DIET] 01/31/21 11:38 Labetalol [Normodyne] 5 mg IV Q6H PRN 02/01/21 09:00 hydroCHLOROthiazide 25 mg PO DAILY - Plan Plan:: The patient is a 75-year-old gentleman who was admitted to acute inpatient secondary to multiple comorbidities. The patient has been restarted on his antihypertensive medications and because of his previous history of hypertensive emergency will lower his blood pressure slowly and to have an excepted range of around 160 mmHg systolic. The patient will have an MRI of his brain to help identify any damage from the hypertensive crisis and/or stroke. While in the emergency department the patient was in supraventricular tachycardia and his rate is currently controlled. EKG shows right bundle branch block and as a result of this he will be kept on telemetry. The patient's vital signs will be monitored and his medications will be adjusted as necessary. The patient is also to have a carb constant diet. I have also ordered insulin sliding scale low-dose. Initially in the emergency department the patient had a markedly elevated glucose of greater than 300 and an A1c was ordered which was found to be 6.3%. The patient initially had elevations of his troponins and the emergency room physician consulted with cardiology and by a combination of hypertensive emergency and SVT it was thought that this was due to demand ischemia. Repeat troponin is been ordered. Repeat laboratory studies have been ordered for the morning. Magnesium levels has been ordered. The patient also says that he has been using cannabis while in [place] to help with his symptoms of anxiety and PTSD. The patient is at a fall risk and with his Plavix and aspirin I feel that the patient is at risk of bleeding and therefore he will have antiembolic stockings for DVT prophylaxis. The patient should be ready for discharge perhaps in 2 to 3 days. The patient is a 75-year-old gentleman who had been admitted secondary to stroke as well as hypertensive emergency. MRI of the brain obtained showed small diffusion abnormality within the right centrum semiovale comparable with a fairly acute infarct. I have discussed the findings with the patient. I have also discussed the case with Dr. Nicolas, hris developer at [facility]. It is thought that the patient's elevations in troponins are not in fact demand ischemia. The patient's EKG still shows right bundle branch block. The patient will be kept on telemetry. Continue with physical therapy and Occupational Therapy. Speech therapy to evaluate. certified adaptive physical educator to assist the patient. Continue with the patient's DVT prophylaxis with antiembolic stockings. He is on Plavix already. Repeat laboratory studies have been ordered. Continue with carb constant diet. The patient should be appropriate for discharge in 1 to 2 days and will need to have neurologic follow-up, cardiology follow-up and [facility] appointments. 01/31/2021 The patient is a 75-year-old gentleman who has blood pressure that has been somewhat difficult to control. I have ordered a combination of labetalol and clonidine to keep his systolic pressures below 150. The patient does have some stress and anxiety which can contribute to this. The patient will continue regular diet as tolerated. For stroke measures this will be secondary prevention he is currently on antiplatelet therapy as well as a statin. The patient will have hematology nurse educator. The patient has evidence of new onset diabetes with episodes of hyperglycemia. The patient will have repeat laboratory studies in the morning. The patient has been encouraged to ambulate. He should be appropriate for discharge when 1 to 2 days as his blood pressure permits.
[2021-01-31] MEDS: cloNIDine 0.1 MG Tab PO SCH ×2 (14:09→21:00)
[2021-01-31] MEDS ORDERED: hydrALAZINE 25 MG Tab PO PRN (16:34)
[2021-01-31] MEDS: Donepezil 10 MG Tab PO SCH (21:00)
[2021-02-01] MEDS: cloNIDine 0.1 MG Tab PO SCH (05:20)
[2021-02-01] MEDS: Sodium Chloride 0.9% 1,000 ML IV SCH (05:20)
[2021-02-01] MEDS: Insulin Regular, Human 100 Units/ML 3 ML Vial SUBCUT SCH ×2 (07:08→11:50)
[2021-02-01] MEDS: Carvedilol 6.25 MG Tab PO SCH (08:44)
[2021-02-01] MEDS: Lisinopril 20 MG Tab PO SCH (08:45)
[2021-02-01] MEDS: Aspirin 81 MG Tab.EC PO SCH (08:47)
[2021-02-01] MEDS: Clopidogrel 75 MG Tab PO SCH (08:48)
[2021-02-01] MEDS ORDERED: Hydrochlorothiazide 25 MG Tab PO SCH (09:00)
[2021-02-01] MEDS ORDERED: amLODIPine 10 MG Tab PO SCH (09:00)
[2021-02-01] MEDS ORDERED: Potassium Chloride 20 MEQ Tab.ER PO ONE (09:17)
--- NOTE | 2021-02-01 10:02 | PCM.DCSUM1 ---
Discharge Summary - Hospital Course Free Text/Narrative:: 02/01/21 afebrile /vss eating well and no aspiration precautions needed although thick placed in milk . cva left fascial droop mild and mild impairment of speech with no word retrieval /anomia noted. walking with observation only . cor rrr without murmur. mild jvd. lungs clear. abd benign. awareness mildly -moderately impaired. confusion moderate for recent events and details and details of home living . will need on going o.p. eval to see if dementia significantly altering taking meds and or living or adls. dc to supervised setting. see ss and dc team/ speech therapy /p.t/ot evals . assess: cva rt centrum ovalie distribution in deep white tracks 1.3 cm . impaired previous to cva and higher risk for other events with b.p and cv (tachicardia issues). no evidence of afib on admission. cog impairment biggest concern . 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 cont adjusted meds a nd follow up .compliance concerns? 3)prediabetes. addressing with monitoring a1c . am b.s 120s/ no insulin given after first dose. weight loss and dietary compliance issues 4)cad: demand ischemia and no changes on echo but known rbbb and extremely high b.p on presentation . now 140-150 80-94 last 24 hours and will need addressed in future. no anginal symptoms and rbbb noted. no sign. bradyarrhythmias or vent arrhythmias on telemetry 4)dementia/ moderate cog. impairment restarted donezapel . 5) mjh use. 6) chronic pain a nd might be adding to cognitive issues in combination with mjh and cyclobenzaprine. held both meds at hi. [facility] Initial Comments: [facility] Admission History & Physical Patient Name: DOMI KESSLER Date of : 1945 Patient Status: Inpatient Attending Provider: Shadi Zimmerman Date: 01/29/21 18:34 Initialization Date: 01/29/21 18:34 H&P History of Present Illness - General Date of Service: 01/29/21 Admit Problem/Dx: Admission Diagnosis/Problem Admission Diagnosis/Problem CVA, Cerebrovascular accident Source of Information: Patient History Limitations: Reports: Other (Poor historian) - History of Present Illness Initial Comments - Free Text/Narative: The patient is a 75-year-old gentleman who has presented to the emergency department complaining of slurred speech facial droop and chest discomfort that started approximately 3 days ago. The patient in the emergency department was noted to have an extremely elevated blood pressure around 250 mmHg systolic. Patient does have a history of hypertension and has been on medications for this. Patient also has a history of coronary artery disease with stent placement 6 years ago and 20 years ago. It was also initially noted that he had superior ventricular tachycardia with rates in the 180 bpm. The patient had his rate controlled and he converted to sinus rhythm in the emergency department after diltiazem. The patient's EKG shows evidence of old infarct along with right bundle branch block. The patient's blood pressure was also controlled in the emergency department and at the time of the history and physical the patient had no further chest pain. The patient normally follows with the [facility] but he has not seen a physician in the past year and a half. Poor historian. Onset of Symptoms: Reports: Unknown/Unsure Duration of Symptoms: Reports: Day(s): Location: Reports: Head, Chest Quality: Reports: Ache, Dull, Pressure Severity: Moderate Improves with: Reports: Medication Worsens with: Reports: None Context: Reports: Other (Stroke code) Left Chest Pain Score (Numeric/FACES): 3 - Related Data Allergies/Adverse Reactions: Allergies Allergy/AdvReac Type Severity Reaction Status Date / Time No Known Allergies Allergy Verified 01/29/21 20:46 Home Medications: Home Meds oxyCODONE HCl/Acetaminophen [Percocet 10-325 mg Tablet] 1 tab PO TID 11/05/19 [History] Aspirin [Aspirin EC] 81 mg PO DAILY 01/29/21 [History] Cholecalciferol (Vitamin D3) [Vitamin D3] 25 mcg PO DAILY 01/29/21 [History] Clopidogrel Bisulfate [Clopidogrel] 75 mg PO DAILY 01/29/21 [History] Cyclobenzaprine [Flexeril] 10 mg PO BID PRN 01/29/21 [History] Donepezil HCl 10 mg PO BEDTIME 01/29/21 [History] Ibuprofen 800 mg PO DAILY 01/29/21 [History] Krill/Choudrant-3/Dha/Epa/Lipids [Krill Oil 300 mg Softgel] 350 mg PO DAILY 01/29/21 [History] Nitroglycerin 0.6 mg SL DAILY PRN 01/29/21 [History] Rosuvastatin Calcium 40 mg PO DAILY 01/29/21 [History] Ubidecarenone [Coq-10] 200 mg PO DAILY 01/29/21 [History] Vitamin E 800 unit PO DAILY 01/29/21 [History] carvediloL [Carvedilol] 6.25 mg PO BID 01/29/21 [History] lisinopriL [Lisinopril] 40 mg PO DAILY 01/29/21 [History] Past Medical History HEENT History: Reports: None Cardiovascular History: Reports: High Cholesterol, Hypertension, [place] Respiratory History: Reports: None Gastrointestinal History: Reports: None Genitourinary History: Reports: None Musculoskeletal History: Reports: Back Pain, Chronic, Fracture, Other (See Below) (Chronic leg pain) Neurological History: Reports: CVA Psychiatric History: Reports: Anxiety, PTSD Endocrine/Metabolic History: Reports: None Hematologic History: Reports: None Immunologic History: Reports: None Oncologic (Cancer) History: Reports: None Dermatologic History: Reports: None - Past Surgical History Cardiovascular Surgical History: Reports: Coronary Artery Stent, Other (See Below) Musculoskeletal Surgical History: Reports: ORIF Other Musculoskeletal Surgeries/Procedures:: right lower leg injury from war time-uses brace and oxycodone Social & Family History - Family History Family Medical History: No Pertinent Family History - Tobacco Use Tobacco Use Status *Q: Never Tobacco User - Recreational Drug Use Recreational Drug Use: Yes Drug Use in Last 12 Months: Yes Recreational Drug Type: Reports: Marijuana/Hashish Other Recreational Drug Type: Pt used marijuana two days ago Recreational Drug Use Frequency: Monthly - Living Situation & Occupation Living situation: Reports: , with Spouse Occupation: Retired H&P Review of Systems - Review of Systems: Review Of Systems: See Below General: Reports: Weakness HEENT: Reports: No Symptoms Pulmonary: Reports: No Symptoms Cardiovascular: Reports: Chest Pain (Currently resolved with lowering of blood pressure and heart rate) Gastrointestinal: Reports: No Symptoms Genitourinary: Reports: No Symptoms Musculoskeletal: Reports: Leg Pain Skin: Reports: Bruising Psychiatric: Reports: Anxiety, Other (Depression, PTSD) Neurological: Reports: Pre-Existing Deficit, Change in Speech. Denies: Numbness, Difficulty Walking Hematologic/Lymphatic: Reports: Easy Bruising Immunologic: Reports: No Symptoms Exam - Exam Exam: See Below - Vital Signs Vital Signs: Last Vital Signs Temp 36.5 C 01/29/21 13:37 Pulse 140 H 01/29/21 14:30 Resp 20 01/29/21 13:37 BP 197/143 H 01/29/21 14:30 Pulse Ox 98 01/29/21 13:37 - Exam Quality Assessment: No: Supplemental Oxygen General: Alert, Oriented, Other (Appears older than stated age, disheveled) HEENT: Conjunctiva Clear, EOMI, Hearing Intact, Posterior Pharynx Clear, PERRLA. No: Mucosa Moist & [place] (Dry) Neck: Supple, Trachea Midline Lungs: Clear to Auscultation, Normal Respiratory Effort Cardiovascular: Regular Rate, Irregular Rhythm GI/Abdominal Exam: Normal Bowel Sounds, Soft, Non-Tender, No Distention. No: Guarding, Rigid (Male) Exam: Deferred Rectal (Males) Exam: Deferred Back Exam: Normal Inspection, Full Range of Motion Extremities: Normal Inspection, Normal Range of Motion, No Pedal Edema, Other (Brace left leg) Skin: Warm, Dry, Ecchymosis (Multiple ecchymoses legs, arms all in different stages of healing) Neurological: Strength Equal Bilateral, Sensation Intact. No: Normal Gait (Walks with a limp normally), Normal Speech (Slurred speech) Neuro Extensive - Mental Status: Alert, Oriented x3, Normal Mood/Affect, Normal Cognition Neuro Extensive - Motor, Sensory, Reflexes: CN II-XII Intact, Facial palsy (L). No: Tongue Deviation (L), Tongue Deviation (R) Psychiatric: Alert, Normal Affect, Depressed, Other (Tearful) - Patient Data Lab Results Last 24 hrs: Laboratory Results - last 24 hr 01/29/21 01/29/21 01/29/21 Range/Units 11:44 13:37 13:39 WBC 7.67 (4.23-9.07) K/mm3 RBC 5.72 (4.63-6.08) M/mm3 Hgb 16.5 (13.7-17.5) gm/dl Hct 49.4 (40.1-51.0) % MCV 86.4 (79.0-92.2) fl MCH 28.8 (25.7-32.2) pg MCHC 33.4 (32.2-35.5) g/dl RDW Std Deviation 45.1 H (35.1-43.9) fL Plt Count 158 L (163-337) K/mm3 MPV 10.8 (9.4-12.3) fl Neut % (Auto) 67.6 (34.0-67.9) % Lymph % (Auto) 21.3 L (21.8-53.1) % [place] % (Auto) 8.1 (5.3-12.2) % Eos % (Auto) 2.5 (0.8-7.0) Baso % (Auto) 0.5 (0.1-1.2) % Neut # (Auto) 5.19 (1.78-5.38) K/mm3 Lymph # (Auto) 1.63 (1.32-3.57) K/mm3 [place] # (Auto) 0.62 (0.30-0.82) K/mm3 Eos # (Auto) 0.19 (0.04-0.54) K/mm3 Baso # (Auto) 0.04 (0.01-0.08) K/mm3 Sodium (136-145) mEq/L Potassium (3.5-5.1) mEq/L Chloride (98-107) mEq/L Carbon Dioxide (21-32) mEq/L Anion Gap (5-15) BUN (7-18) mg/dL Creatinine (0.7-1.3) mg/dL Est Cr Clr Drug Dosing Estimated GFR (MDRD) (>60) mL/min BUN/Creatinine Ratio (14-18) Glucose (83-115) mg/dL POC Glucose 297 H (70-99) mg/dL Hemoglobin A1c ( - 5.6) % Calcium (8.5-10.1) mg/dL Total Bilirubin (0.2-1.0) mg/dL AST (15-37) U/L ALT (16-63) U/L Alkaline Phosphatase (46-116) U/L Troponin I (0.00-0.056) ng/mL NT-Pro-B Natriuret Pep (0-125) pg/mL Total Protein (6.4-8.2) g/dl Albumin (3.4-5.0) g/dl Globulin gm/dL Albumin/Globulin Ratio (1-2) SARS-CoV-2 RNA (MARCO) Negative (NEGATIVE) 01/29/21 01/29/21 01/29/21 Range/Units 13:39 13:39 13:39 WBC (4.23-9.07) K/mm3 RBC (4.63-6.08) M/mm3 Hgb (13.7-17.5) gm/dl Hct (40.1-51.0) % MCV (79.0-92.2) fl MCH (25.7-32.2) pg MCHC (32.2-35.5) g/dl RDW Std Deviation (35.1-43.9) fL Plt Count (163-337) K/mm3 MPV (9.4-12.3) fl Neut % (Auto) (34.0-67.9) % Lymph % (Auto) (21.8-53.1) % [place] % (Auto) (5.3-12.2) % Eos % (Auto) (0.8-7.0) Baso % (Auto) (0.1-1.2) % Neut # (Auto) (1.78-5.38) K/mm3 Lymph # (Auto) (1.32-3.57) K/mm3 [place] # (Auto) (0.30-0.82) K/mm3 Eos # (Auto) (0.04-0.54) K/mm3 Baso # (Auto) (0.01-0.08) K/mm3 Sodium 139 (136-145) mEq/L Potassium 3.5 (3.5-5.1) mEq/L Chloride 101 (98-107) mEq/L Carbon Dioxide 20 L (21-32) mEq/L Anion Gap 21.5 H (5-15) BUN 16 (7-18) mg/dL Creatinine 1.0 (0.7-1.3) mg/dL Est Cr Clr Drug Dosing TNP Estimated GFR (MDRD) > 60 (>60) mL/min BUN/Creatinine Ratio 16.0 (14-18) Glucose 308 H (83-115) mg/dL POC Glucose (70-99) mg/dL Hemoglobin A1c 6.3 H ( - 5.6) % Calcium 8.8 (8.5-10.1) mg/dL Total Bilirubin 1.4 H (0.2-1.0) mg/dL AST 27 (15-37) U/L ALT 27 (16-63) U/L Alkaline Phosphatase 67 (46-116) U/L Troponin I 0.027 (0.00-0.056) ng/mL NT-Pro-B Natriuret Pep 691 H (0-125) pg/mL Total Protein 7.9 (6.4-8.2) g/dl Albumin 4.1 (3.4-5.0) g/dl Globulin 3.8 gm/dL Albumin/Globulin Ratio 1.1 (1-2) SARS-CoV-2 RNA (MARCO) (NEGATIVE) 01/29/21 Range/Units 16:40 WBC (4.23-9.07) K/mm3 RBC (4.63-6.08) M/mm3 Hgb (13.7-17.5) gm/dl Hct (40.1-51.0) % MCV (79.0-92.2) fl MCH (25.7-32.2) pg MCHC (32.2-35.5) g/dl RDW Std Deviation (35.1-43.9) fL Plt Count (163-337) K/mm3 MPV (9.4-12.3) fl Neut % (Auto) (34.0-67.9) % Lymph % (Auto) (21.8-53.1) % [place] % (Auto) (5.3-12.2) % Eos % (Auto) (0.8-7.0) Baso % (Auto) (0.1-1.2) % Neut # (Auto) (1.78-5.38) K/mm3 Lymph # (Auto) (1.32-3.57) K/mm3 [place] # (Auto) (0.30-0.82) K/mm3 Eos # (Auto) (0.04-0.54) K/mm3 Baso # (Auto) (0.01-0.08) K/mm3 Sodium (136-145) mEq/L Potassium (3.5-5.1) mEq/L Chloride (98-107) mEq/L Carbon Dioxide (21-32) mEq/L Anion Gap (5-15) BUN (7-18) mg/dL Creatinine (0.7-1.3) mg/dL Est Cr Clr Drug Dosing Estimated GFR (MDRD) (>60) mL/min BUN/Creatinine Ratio (14-18) Glucose (83-115) mg/dL POC Glucose (70-99) mg/dL Hemoglobin A1c ( - 5.6) % Calcium (8.5-10.1) mg/dL Total Bilirubin (0.2-1.0) mg/dL AST (15-37) U/L ALT (16-63) U/L Alkaline Phosphatase (46-116) U/L Troponin I 0.109 H* (0.00-0.056) ng/mL NT-Pro-B Natriuret Pep (0-125) pg/mL Total Protein (6.4-8.2) g/dl Albumin (3.4-5.0) g/dl Globulin gm/dL Albumin/Globulin Ratio (1-2) SARS-CoV-2 RNA (MARCO) (NEGATIVE) Result Diagrams: 01/30/21 06:15 01/30/21 06:15 Sepsis Event Note - Evaluation Sepsis Screening Result: No Definite Risk - Focused Exam Vital Signs: Vital Signs Temp Pulse Pulse Resp BP BP Pulse Ox 01/29/21 14:30 140 H 197/143 H 01/29/21 14:00 152 H 215/135 H 01/29/21 13:37 36.5 C 152 H 20 223/154 H 98 *Q Meaningful Use (ADM) - VTE *Q VTE Mechanical Contraindications *Q: At Risk for Falls VTE Pharmacological Contraindications *Q: Risk of Bleeding - Problem List (1) CVA (cerebral vascular accident) SNOMED Code(s): 286649756 ICD Code: I63.9 - CEREBRAL INFARCTION, UNSPECIFIED Status: Acute Priority: High Current Visit: Yes Qualifiers: CVA mechanism: unspecified Qualified Code(s): I63.9 - Cerebral infarction, unspecified (2) Hypertension SNOMED Code(s): 70504355 ICD Code: I10 - ESSENTIAL (PRIMARY) HYPERTENSION Status: Chronic Priority: High Current Visit: Yes Qualifiers: Hypertension type: essential hypertension Qualified Code(s): I10 - Essential (primary) hypertension (3) Right bundle branch block SNOMED Code(s): 63605369 ICD Code: I45.10 - UNSPECIFIED RIGHT BUNDLE-BRANCH BLOCK Status: Chronic Priority: High Current Visit: Yes (4) Demand ischemia of myocardium SNOMED Code(s): 281051954, 521694099743241 ICD Code: I24.8 - OTHER FORMS OF ACUTE ISCHEMIC HEART DISEASE Status: Chronic Priority: High Current Visit: Yes (5) PTSD (post-traumatic stress disorder) SNOMED Code(s): 84895924 ICD Code: F43.10 - POST-TRAUMATIC STRESS DISORDER, UNSPECIFIED Status: Chronic Priority: Low Current Visit: Yes (6) Atrial flutter with rapid ventricular response SNOMED Code(s): 7369584, 3609225 ICD Code: I48.92 - UNSPECIFIED ATRIAL FLUTTER Status: Resolved Priority: High Current Visit: Yes (7) Elevated troponin SNOMED Code(s): 271952202, 148567613, 820144405 ICD Code: R77.8 - OTHER SPECIFIED ABNORMALITIES OF PLASMA PROTEINS Status: Acute Priority: High Current Visit: Yes (8) Chronic pain SNOMED Code(s): 00723018 ICD Code: G89.29 - OTHER CHRONIC PAIN Status: Chronic Priority: Medium Current Visit: Yes Qualifiers: Chronic pain type: other chronic pain Qualified Code(s): G89.29 - Other chronic pain (9) Hyperglycemia SNOMED Code(s): 80602933 ICD Code: R73.9 - HYPERGLYCEMIA, UNSPECIFIED Status: Chronic Priority: High Current Visit: Yes (10) Prediabetes SNOMED Code(s): 217685933 ICD Code: R73.03 - PREDIABETES Status: Chronic Priority: High Current Visit: Yes Problem List Initiated/Reviewed/Updated: Yes Orders Last 24hrs: Active Orders 24 hr Diagnosis: Stroke: Yes Modified [place] Scale: Mod.Disablility Requiring Some Help,Able to Walk Without Assistance Modified [place] Scale Score: 3 - Discharge Data Discharge Date: 02/01/21 Discharge Disposition: Home, Self-Care 01 Condition: Good - Referral to Home Health Primary Care Physician: Flora Horner MD Skilled Need: lives with . - Discharge Diagnosis/Problem(s) (1) CVA (cerebral vascular accident) SNOMED Code(s): 917304970 ICD Code: I63.9 - CEREBRAL INFARCTION, UNSPECIFIED Status: Acute Priority: Low Current Visit: Yes Problem Details: Subacute infarct. confirmed by mri rt centrum ovali area. started plavix and cont asa. supaventrucular tach on admision with elavated trop without elavation "demand ischemia " Qualifiers: CVA mechanism: unspecified Qualified Code(s): I63.9 - Cerebral infarction, unspecified (2) Elevated troponin SNOMED Code(s): 893208615, 627782948, 409655777 ICD Code: R77.8 - OTHER SPECIFIED ABNORMALITIES OF PLASMA PROTEINS Status: Acute Priority: Medium Current Visit: Yes Problem Details: platlet count slightly low without hx of bleeding and or recent cv events prev. to this admisision (3) Chronic pain SNOMED Code(s): 03148816 ICD Code: G89.29 - OTHER CHRONIC PAIN Status: Chronic Priority: Medium Current Visit: Yes Qualifiers: Chronic pain type: other chronic pain Qualified Code(s): G89.29 - Other chronic pain (4) Demand ischemia of myocardium SNOMED Code(s): 151636650, 386089056608135 ICD Code: I24.8 - OTHER FORMS OF ACUTE ISCHEMIC HEART DISEASE Status: Chronic Priority: Medium Current Visit: Yes Onset Date: ~02/01/21 Problem Details: denies recent chest pain syncope and of cv symptoms . denies palp/ afib or psvt or hx of vent. arrythmias (5) Hyperglycemia SNOMED Code(s): 23145154 ICD Code: R73.9 - HYPERGLYCEMIA, UNSPECIFIED Status: Chronic Priority: Medium Current Visit: Yes (6) Hypertension SNOMED Code(s): 39220443 ICD Code: I10 - ESSENTIAL (PRIMARY) HYPERTENSION Status: Chronic Priority: Low Current Visit: Yes Onset Date: ~01/30/21 Problem Details: refractory hypertension in face of recent cva subacute onset with presentation on day 5 . echo normal and doing well now with addition of amlodapine. hydralizine dced as he is doing better 140s/82 this am. Qualifiers: Hypertension type: essential hypertension Qualified Code(s): I10 - Essential (primary) hypertension (7) PTSD (post-traumatic stress disorder) SNOMED Code(s): 68228875 ICD Code: F43.10 - POST-TRAUMATIC STRESS DISORDER, UNSPECIFIED Status: Chronic Priority: Low Current Visit: Yes (8) Prediabetes SNOMED Code(s): 395898137 ICD Code: R73.03 - PREDIABETES Status: Chronic Priority: Medium Current Visit: Yes - Patient Summary/Data Consults: Consultations 01/29/21 18:20 Consult to Diabetic Nurse Specialist [CONS] Routine OT Evaluation and Treatment [CONS] Routine PT Evaluation and Treatment [CONS] Routine TERMITE EXTERMINATOR Evaluation and Treatment [CONS] Routine Hospital Course: 02/01/21 afebrile /vss eating well and no aspiration precautions needed although thick placed in milk . cva left fascial droop mild and mild impairment of speech with no word retrieval /anomia noted. walking with observation only . cor rrr without murmur. mild jvd. lungs clear. abd benign. awareness mildly -moderately impaired. confusion moderate for recent events and details and details of home living . will need on going o.p. eval to see if dementia significantly alter ing taking meds and or living or adls. dc to supervised setting. see ss and dc team/ speech therapy /p.t/ot evals . assess: cva rt centrum ovalie distribution in deep white tracks 1.3 cm . impaired previous to cva and higher risk for other events with b.p and cv (tachicardia issues). no evidence of afib on admission. cog impairment biggest concern . 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 cont adjusted meds a nd follow up .compliance concerns? 3)prediabetes. addressing with monitoring a1c . am b.s 120s/ no insulin given after first dose. weight loss and dietary compliance issues 4)cad: demand ischemia and no changes on echo but known rbbb and extremely high b.p on presentation . now 140-150 80-94 last 24 hours and will need addressed in future. no anginal symptoms and rbbb noted. no sign. bradyarrhythmias or vent arrhythmias on telemetry 4)dementia/ moderate cog. impairment restarted donezapel . 5) mjh use. 6) chronic pain a nd might be adding to cognitive issues in combination with mjh and cyclobenzaprine. held both meds at dc. boh - Patient Instructions Diet: Usual Diet as Tolerated, Diabetic Diet Diet, Other: patient prediabetic and low carb diet recommended and he agrees. Activity, Other: walking as tolerated/ no aspiration precautions Driving: Do Not Drive Showering/Bathing: May Shower - Discharge Plan *PRESCRIPTION DRUG MONITORING PROGRAM REVIEWED*: No *COPY OF PRESCRIPTION DRUG MONITORING REPORT IN PATIENT JANET: No Prescriptions/Med Rec: amLODIPine Besylate [Amlodipine Besylate] 5 mg PO ACDINNER 30 Days #30 tablet carvediloL [Carvedilol] 6.25 mg PO BID 30 Days carvediloL [Coreg] 6.25 mg PO BID #60 tablet Donepezil HCl 10 mg PO BEDTIME #30 hydroCHLOROthiazide [Hydrochlorothiazide] 25 mg PO DAILY #30 tablet lisinopriL [Lisinopril] 40 mg PO DAILY 30 Days Nitroglycerin 0.6 mg SL DAILY PRN #30 PRN Reason: Chest Pain Clopidogrel [Plavix] 75 mg PO DAILY #30 tablet Home Medications: Home Meds oxyCODONE HCl/Acetaminophen [Percocet 10-325 mg Tablet] 1 tab PO TID 11/05/19 [History] Aspirin [Aspirin EC] 81 mg PO DAILY 01/29/21 [History] Cholecalciferol (Vitamin D3) [Vitamin D3] 25 mcg PO DAILY 01/29/21 [History] Krill/Choudrant-3/Dha/Epa/Lipids [Krill Oil 300 mg Softgel] 350 mg PO DAILY 01/29/21 [History] Rosuvastatin Calcium 40 mg PO DAILY 01/29/21 [History] Ubidecarenone [Coq-10] 200 mg PO DAILY 01/29/21 [History] Clopidogrel [Plavix] 75 mg PO DAILY #30 tablet 02/01/21 [Rx] Donepezil HCl 10 mg PO BEDTIME #30 02/01/21 [Rx] Nitroglycerin 0.6 mg SL DAILY PRN #30 02/01/21 [Rx] Temazepam [Restoril] 15 mg PO BEDTIME PRN cap 02/01/21 [Rx] amLODIPine Besylate [Amlodipine Besylate] 5 mg PO ACDINNER 30 Days #30 tablet 02/01/21 [Rx] carvediloL [Carvedilol] 6.25 mg PO BID 30 Days 02/01/21 [Rx] carvediloL [Coreg] 6.25 mg PO BID #60 tablet 02/01/21 [Rx] hydroCHLOROthiazide [Hydrochlorothiazide] 25 mg PO DAILY #30 tablet 02/01/21 [Rx] lisinopriL [Lisinopril] 40 mg PO DAILY 30 Days 02/01/21 [Rx] Oxygen Therapy Mode: Room Air Patient Handouts: Hospital Discharge After a Stroke, Stroke Prevention, [id number], Warning Signs of a Stroke Forms: ED Department Discharge Referrals: Melanie Haque NP [Ordering Only Provider] - 02/05/21 9:30 am (Patient will need follow up with neurology and cardiology after discharge. [place] - Discharge Summary/Plan Comment DC Time >30 min.: Yes - General Info Date of Service: 02/01/21 Admission Dx/Problem (Free Text: Admission Diagnosis/Problem Admission Diagnosis/Problem CVA, Cerebrovascular accident, SVT, demand ischemia of myocardium Subjective Update: The patient is a 75-year-old gentleman who was admitted on January 29, 2021 secondary to subacute stroke. The patient had waited 3 days to present to the emergency room. The patient in ER was noted to be in hypertensive emergency. The patient's blood pressure have been controlled in the emergency department to keep his systolic blood pressure around 160 mmHg. The patient today said that he had a discussion with his and was anxious about how his is going to take care of herself. The patient's blood pressure spiked upward greater than 200 mmHg. The patient is feeling somewhat anxious but he is otherwise feeling better. The patient still has deficits with speech and left-sided facial droop. The patient has been tolerating his diet. 02/01/21 afebrile /vss eating well and no aspiration precautions needed although thick placed in milk . cva left fascial droop mild and mild impairment of speech with no word retrieval /anomia noted. walking with observation only . cor rrr without murmur. mild jvd. lungs clear. abd benign. awareness mildly -moderately impaired. confusion moderate for recent events and details and details of home living . will need on going o.p. eval to see if dementia significantly altering taking meds and or living or adls. dc to supervised setting. see ss and dc team/ speech therapy /p.t/ot evals . assess: cva rt centrum ovalie distribution in deep white tracks 1.3 cm . impaired previous to cva and higher risk for other events with b.p and cv (tachicardia issues). no evidence of afib on admission. cog impairment biggest concern . 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 cont adjusted meds a nd follow up .compliance concerns? 3)prediabetes. addressing with monitoring a1c . am b.s 120s/ no insulin given after first dose. weight loss and dietary compliance issues 4)cad: demand ischemia and no changes on echo but known rbbb and extremely high b.p on presentation . now 140-150 80-94 last 24 hours and will need addressed in future. no anginal symptoms and rbbb noted. no sign. bradyarrhythmias or vent arrhythmias on telemetry 4)dementia/ moderate cog. impairment restarted donezapel . 5) mjh use. 6) chronic pain a nd might be adding to cognitive issues in combination with mjh and cyclobenzaprine. held both meds at dc. boh Functional Status: Reports: Pain Controlled - Review of Systems General: Reports: No Symptoms HEENT: Reports: No Symptoms Pulmonary: Reports: No Symptoms Cardiovascular: Reports: No Symptoms Gastrointestinal: Reports: No Symptoms Genitourinary: Reports: No Symptoms Musculoskeletal: Reports: No Symptoms Skin: Reports: No Symptoms Neurological: Reports: No Symptoms Psychiatric: Reports: No Symptoms - Patient Data Vitals - Most Recent: Last Vital Signs Temp 36.7 C 02/01/21 07:23 Pulse 76 02/01/21 08:44 Resp 16 02/01/21 07:23 BP 154/87 H 02/01/21 08:48 Pulse Ox 99 02/01/21 07:23 Weight - Most Recent: 72.076 kg I&O - Last 24 hours: Intake & Output 01/31/21 02/01/21 02/01/21 22:59 06:59 14:59 Intake Total 1870 1184 Output Total 550 750 Balance 1320 434 Lab Results - Last 24 hrs: Laboratory Results - last 24 hr 01/31/21 01/31/21 01/31/21 Range/Units 10:37 16:51 20:55 WBC (4.23-9.07) K/mm3 RBC (4.63-6.08) M/mm3 Hgb (13.7-17.5) gm/dl Hct (40.1-51.0) % MCV (79.0-92.2) fl MCH (25.7-32.2) pg MCHC (32.2-35.5) g/dl RDW Std Deviation (35.1-43.9) fL Plt Count (163-337) K/mm3 MPV (9.4-12.3) fl Neut % (Auto) (34.0-67.9) % Lymph % (Auto) (21.8-53.1) % [place] % (Auto) (5.3-12.2) % Eos % (Auto) (0.8-7.0) Baso % (Auto) (0.1-1.2) % Neut # (Auto) (1.78-5.38) K/mm3 Lymph # (Auto) (1.32-3.57) K/mm3 [place] # (Auto) (0.30-0.82) K/mm3 Eos # (Auto) (0.04-0.54) K/mm3 Baso # (Auto) (0.01-0.08) K/mm3 Sodium (136-145) mEq/L Potassium (3.5-5.1) mEq/L Chloride (98-107) mEq/L Carbon Dioxide (21-32) mEq/L Anion Gap (5-15) BUN (7-18) mg/dL Creatinine (0.7-1.3) mg/dL Est Cr Clr Drug Dosing mL/min Estimated GFR (MDRD) (>60) mL/min BUN/Creatinine Ratio (14-18) Glucose (83-115) mg/dL POC Glucose 126 H 113 H 99 (70-99) mg/dL Calcium (8.5-10.1) mg/dL Total Bilirubin (0.2-1.0) mg/dL AST (15-37) U/L ALT (16-63) U/L Alkaline Phosphatase (46-116) U/L Total Protein (6.4-8.2) g/dl Albumin (3.4-5.0) g/dl Globulin gm/dL Albumin/Globulin Ratio (1-2) 02/01/21 02/01/21 02/01/21 Range/Units 04:58 04:58 07:03 WBC 6.54 (4.23-9.07) K/mm3 RBC 4.72 (4.63-6.08) M/mm3 Hgb 13.7 (13.7-17.5) gm/dl Hct 41.0 (40.1-51.0) % MCV 86.9 (79.0-92.2) fl MCH 29.0 (25.7-32.2) pg MCHC 33.4 (32.2-35.5) g/dl RDW Std Deviation 43.7 (35.1-43.9) fL Plt Count 124 L (163-337) K/mm3 MPV 11.4 (9.4-12.3) fl Neut % (Auto) 56.8 (34.0-67.9) % Lymph % (Auto) 26.6 (21.8-53.1) % [place] % (Auto) 11.8 (5.3-12.2) % Eos % (Auto) 4.1 (0.8-7.0) Baso % (Auto) 0.5 (0.1-1.2) % Neut # (Auto) 3.72 (1.78-5.38) K/mm3 Lymph # (Auto) 1.74 (1.32-3.57) K/mm3 [place] # (Auto) 0.77 (0.30-0.82) K/mm3 Eos # (Auto) 0.27 (0.04-0.54) K/mm3 Baso # (Auto) 0.03 (0.01-0.08) K/mm3 Sodium 142 (136-145) mEq/L Potassium 3.5 (3.5-5.1) mEq/L Chloride 109 H (98-107) mEq/L Carbon Dioxide 23 (21-32) mEq/L Anion Gap 13.5 (5-15) BUN 18 (7-18) mg/dL Creatinine 0.8 (0.7-1.3) mg/dL Est Cr Clr Drug Dosing 79.56 mL/min Estimated GFR (MDRD) > 60 (>60) mL/min BUN/Creatinine Ratio 22.5 H (14-18) Glucose 112 (83-115) mg/dL POC Glucose 113 H (70-99) mg/dL Calcium 8.7 (8.5-10.1) mg/dL Total Bilirubin 0.9 (0.2-1.0) mg/dL AST 17 (15-37) U/L ALT 17 (16-63) U/L Alkaline Phosphatase 49 (46-116) U/L Total Protein 6.1 L (6.4-8.2) g/dl Albumin 3.1 L (3.4-5.0) g/dl Globulin 3.0 gm/dL Albumin/Globulin Ratio 1.0 (1-2) Med Orders - Current: Current Medications Acetaminophen (Acetaminophen 325 Mg Tab) 650 mg PO Q4H PRN PRN Reason: Pain (Mild 1-3)/fever Amlodipine Besylate (Amlodipine 10 Mg Tab) 10 mg PO DAILY [facility] Last Admin: 02/01/21 08:48 Dose: 10 mg Documented by: Aspirin (Aspirin 81 Mg Tab.Ec) 81 mg PO DAILY [facility] Last Admin: 02/01/21 08:47 Dose: 81 mg Documented by: Carvedilol (Carvedilol 6.25 Mg Tab) 6.25 mg PO BID [facility] Last Admin: 02/01/21 08:44 Dose: 6.25 mg Documented by: Clonidine HCl (Clonidine 0.1 Mg Tab) 0.2 mg PO Q8H [facility] Last Admin: 02/01/21 05:20 Dose: 0.2 mg Documented by: Clopidogrel Bisulfate (Clopidogrel 75 Mg Tab) 75 mg PO DAILY [facility] Last Admin: 02/01/21 08:48 Dose: 75 mg Documented by: Cyclobenzaprine HCl (Cyclobenzaprine 10 Mg Tab) 10 mg PO BID PRN PRN Reason: Pain Docusate Sodium (Docusate Sodium 100 Mg Cap) 100 mg PO BID PRN PRN Reason: Constipation Donepezil HCl (Donepezil 10 Mg Tab) 10 mg PO BEDTIME [facility] Last Admin: 01/31/21 21:00 Dose: 10 mg Documented by: Hydralazine HCl (Hydralazine 25 Mg Tab) 25 mg PO Q8H PRN PRN Reason: Hypertension Last Admin: 01/31/21 16:44 Dose: 25 mg Documented by: Hydrochlorothiazide (Hydrochlorothiazide 25 Mg Tab) 25 mg PO DAILY [facility] Last Admin: 02/01/21 08:49 Dose: 25 mg Documented by: Sodium Chloride (Normal Saline) 1,000 mls @ 75 mls/hr IV ASDIRECTED [facility] Last Admin: 02/01/21 05:20 Dose: 75 mls/hr Documented by: Insulin Human Regular (Insulin Regular, Human 100 Units/Ml 3 Ml Vial) 0 unit SUBCUT TIDMEALS [facility]; Protocol Last Admin: 02/01/21 07:08 Dose: Not Given Documented by: Labetalol HCl (Labetalol 100 Mg/20 Ml Mdv) 5 mg IV Q6H PRN PRN Reason: SEE LABEL COMMENTS Last Admin: 01/31/21 11:51 Dose: 5 mg Documented by: Lisinopril (Lisinopril 20 Mg Tab) 40 mg PO DAILY [facility] Last Admin: 02/01/21 08:45 Dose: 40 mg Documented by: Ondansetron HCl (Ondansetron 4 Mg Tab.Dis) 4 mg PO Q6H PRN PRN Reason: nausea, able to take PO Oxycodone HCl (Oxycodone 5 Mg Tab) 10 mg PO Q4H PRN PRN Reason: Pain (moderate 4-6) Sodium Chloride (Sodium Chloride 0.9% 10 Ml Syringe) 10 ml FLUSH ASDIRECTED PRN PRN Reason: Keep Vein Open Last Admin: 01/29/21 16:33 Dose: 10 ml Documented by: Temazepam (Temazepam 15 Mg Cap) 15 mg PO BEDTIME PRN PRN Reason: Sleep Last Admin: 01/30/21 21:24 Dose: 15 mg Documented by: Discontinued Medications Aspirin (Aspirin 81 Mg Tab.Chew) 324 mg PO ONETIME ONE Stop: 01/29/21 17:35 Last Admin: 01/29/21 18:11 Dose: 324 mg Documented by: Clopidogrel Bisulfate (Clopidogrel 75 Mg Tab) 75 mg PO ONETIME ONE Stop: 01/30/21 17:36 Clopidogrel Bisulfate (Clopidogrel 75 Mg Tab) 75 mg PO ONETIME ONE Stop: 01/29/21 18:03 Last Admin: 01/29/21 18:11 Dose: 75 mg Documented by: Diltiazem HCl (Diltiazem 50 Mg/10 Ml Sdv) 20 mg IVPUSH ONETIME ONE Stop: 01/29/21 14:32 Last Admin: 01/29/21 14:36 Dose: 15 mg Documented by: Hydralazine HCl (Hydralazine 25 Mg Tab) 25 mg PO ONETIME ONE Stop: 01/31/21 10:01 Last Admin: 01/31/21 09:55 Dose: 25 mg Documented by: Insulin Human Regular (Insulin Regular, Human 100 Units/Ml 3 Ml Vial) 0 unit SUBCUT TIDPC [facility]; Protocol Last Admin: 01/31/21 12:57 Dose: Not Given Documented by: Labetalol HCl (Labetalol 100 Mg/20 Ml Mdv) 5 mg IVPUSH Q4H PRN; Protocol PRN Reason: Hypertension Metoprolol Tartrate (Metoprolol Tartrate 5 Mg/5 Ml Sdv) 5 mg IVPUSH ONETIME ONE Stop: 01/29/21 13:53 Last Admin: 01/29/21 14:00 Dose: 5 mg Documented by: Metoprolol Tartrate (Metoprolol Tartrate 5 Mg/5 Ml Sdv) 5 mg IVPUSH ONETIME ONE Stop: 01/29/21 14:19 Last Admin: 01/29/21 14:30 Dose: 2.5 mg Documented by: Morphine Sulfate (Morphine 2 Mg/Ml Syringe) 2 mg IVPUSH Q2H PRN PRN Reason: Pain (severe 7-10) Stop: 01/30/21 18:21 Potassium Chloride (Potassium Chloride 10 Meq Tab.Er) 10 meq PO ONETIME ONE Stop: 01/30/21 06:53 Last Admin: 01/30/21 08:44 Dose: 10 meq Documented by: Potassium Chloride (Potassium Chloride 20 Meq Tab.Er) 40 meq PO ONETIME ONE Stop: 02/01/21 09:18 - Exam General: Reports: Alert, Oriented HEENT: Reports: Pupils Equal, Pupils Reactive, EOMI, Mucous Membr. Moist/[place] Neck: Reports: Supple Lungs: Reports: Clear to Auscultation, Normal Respiratory Effort Cardiovascular: Reports: Regular Rate, Regular Rhythm GI/Abdominal Exam: Normal Bowel Sounds, Soft, Non-Tender, No Organomegaly, No Distention, No Abnormal Bruit, No Mass, Pelvis Stable (Male) Exam: No Hernia, Normal Inspection, Normal Prostate, Circumcised Rectal (Males) Exam: Normal Exam, Normal Rectal Tone, Prostate Normal Back Exam: Reports: Normal Inspection, Full Range of Motion Extremities: Normal Inspection, Normal Range of Motion, Non-Tender, No Pedal Edema, Normal Capillary Refill Skin: Reports: Warm, Dry, Intact Wound/Incisions: Reports: Healing Well Neurological: Reports: No New Focal Deficit Psy/Mental Status: Reports: Alert, Normal Affect, Normal Mood *Q Meaningful Use (DIS) - VTE *Q VTE Mechanical Contraindications *Q: At Risk for Falls VTE Pharmacological Contraindications *Q: Risk of Bleeding
[2021-02-01] MEDS ORDERED: Nitroglycerin 0.4 MG Tab.SL SL PRN (10:36)
== END 2021-02-01 12:25 | disposition home or self-care (01) | DRG 65 ==
LOC: JD.ED 13:28 → JD.MS 17:50
PROVIDERS: ADMIT Internal Medicine; ATTEND Internal Medicine
DX: I63.9 Cerebral infarction, unspecified (principal); I47.1 Supraventricular tachycardia; I24.8 Other forms of acute ischemic heart disease; I48.92 Unspecified atrial flutter; I16.1 Hypertensive emergency; I25.10 Atherosclerotic heart disease of native coronary artery without angina pectoris; Z20.822 Contact with and (suspected) exposure to COVID-19; Z79.02 Long term (current) use of antithrombotics/antiplatelets; R73.03 Prediabetes; F03.90 Unspecified dementia, unspecified severity, without behavioral disturbance, psychotic disturbance, mood disturbance, and anxiety; G89.29 Other chronic pain; I10 Essential (primary) hypertension; E78.00 Pure hypercholesterolemia, unspecified; M54.9 Dorsalgia, unspecified; F41.9 Anxiety disorder, unspecified; F43.10 Post-traumatic stress disorder, unspecified; I45.10 Unspecified right bundle-branch block; R77.8 Other specified abnormalities of plasma proteins; R73.9 Hyperglycemia, unspecified; Z79.01 Long term (current) use of anticoagulants; Z79.899 Other long term (current) drug therapy; I25.2 Old myocardial infarction; Z79.82 Long term (current) use of aspirin; Z95.5 Presence of coronary angioplasty implant and graft
CPT/HCPCS: 36415; 70450; 71045; 80053; 82947; 83036; 83880; 84484 ×2; 85025; 87635; 93005 ×2; 96374; 96375; 99285; J3490 ×3; 70551; 70551-26; 83735; 92526-GN; 92610-GN; 97110-GP; 97116-GP; 97162-GP; 97165-GO; 97530-GO; 97535-GO; 99284; A9270-GY; J1815-GY; J7030; U0002

== ENCOUNTER 2021-06-13 08:32 | Emergency (ER) | payer OTHER ==
[2021-06-13] MEDS ORDERED: Dextrose 5%-0.9% NaCl 1,000 ML IV SCH (08:45)
--- NOTE | 2021-06-13 08:47 | EDM.PDOC ---
ED HPI GENERAL MEDICAL PROBLEM - General Chief Complaint: Fever Stated Complaint: [facility] Time Seen by Provider: 06/13/21 08:34 Source of Information: Reports: Patient History Limitations: Reports: No Limitations - History of Present Illness INITIAL COMMENTS - FREE TEXT/NARRATIVE: 76-year-old male presents to the ED per [facility] after developing chest pain after having a cold shower this morning. This is his normal routine. He developed central /precordial chest discomfort with no radiation of pain while tiling off this morning. He denies feeling lightheaded dizzy. No weakness in his legs. He took 2 of his nitroglycerin tablets about 6 minutes apart and chest pain dissipated. He estimates that only lasted about 10 minutes. Upon arrival in the ED patient is exhibiting a rapid irregular heartbeat likely atrial fibrillation in the 140s. He denies feeling short of breath and chest pain is gone. Paramedics did give him 2 baby aspirin chewed. He will be given 2 more in the ED. His blood pressure is on the low side 108/88. Patient has known coronary disease with previous myocardial infarction about 20 years ago. He believes he has [address] Overall he states this is occurred a couple of times a year and he has to use nitroglycerin. Onset: Today, Sudden Onset Date: 06/13/21 Onset Time: 08:20 Duration: Minutes:, Resolved Prior to Arrival (He took 2 0.4 mg nitroglycerin tablets about 5 to 6 minutes apart with complete complete resolution of the pain up with the second nitro tablet.) Location: Reports: Chest (Central left precordial chest pain with no radiation. Patient has known coronary disease) Quality: Reports: Pressure, Other (Squeezing type pain) Severity: Moderate Improves with: Reports: Medication (Improved completely with resolution after second nitro tab taken about 6 minutes after the first 1 at home this morning.) Worsens with: Reports: None Context: Reports: Other (Central chest discomfort came on after toweling off after a cold shower this morning.). Denies: Activity, Exercise, Lifting, Sick Contact, Trauma Associated Symptoms: Reports: Chest Pain, Cough (See history of present illness), Shortness of Breath. 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 It would take about 6 minutes apart with complete resolution of the chest discomfort with the second nitro tablet.), Other (see below) (He did take 2 baby aspirin chewed this morning.) - Related Data Allergies Allergy/AdvReac Type Severity Reaction Status Date / Time No Known Allergies Allergy Verified 01/29/21 20:46 Home Meds: Home Meds Aspirin [Aspirin EC] 81 mg PO BID 01/29/21 [History] Cholecalciferol (Vitamin D3) [Vitamin D3] 25 mcg PO DAILY 01/29/21 [History] Krill/Kennedy-3/Dha/Epa/Lipids [Krill Oil 300 mg Softgel] 350 mg PO DAILY 01/29/21 [History] Rosuvastatin Calcium 40 mg PO DAILY 01/29/21 [History] Ubidecarenone [Coq-10] 200 mg PO DAILY 01/29/21 [History] Clopidogrel [Plavix] 75 mg PO DAILY #30 tablet 02/01/21 [Rx] Donepezil HCl 10 mg PO BEDTIME #30 02/01/21 [Rx] Nitroglycerin 0.6 mg SL DAILY PRN #30 02/01/21 [Rx] amLODIPine Besylate [Amlodipine Besylate] 5 mg PO ACDINNER 30 Days #30 tablet 02/01/21 [Rx] carvediloL [Coreg] 6.25 mg PO BID #60 tablet 02/01/21 [Rx] hydroCHLOROthiazide [Hydrochlorothiazide] 25 mg PO DAILY #30 tablet 02/01/21 [Rx] lisinopriL [Lisinopril] 40 mg PO DAILY 30 Days 02/01/21 [Rx] Cyclobenzaprine HCl 10 mg PO DAILY PRN 06/13/21 [History] Nitroglycerin 0.4 mg SL ASDIRECTED #12 tab.subl 06/13/21 [Rx] Potassium Chloride 20 meq PO DAILY #30 tablet.er 06/13/21 [Rx] Past Medical History HEENT History: Reports: None Other HEENT History: wears upper/lower dentures Cardiovascular History: Reports: CAD, Heart Failure, High Cholesterol, Hypertension, NM, Stents (He believes he has [address]) Respiratory History: Reports: None Gastrointestinal History: Reports: None Genitourinary History: Reports: None Musculoskeletal History: Reports: Back Pain, Chronic, Fracture, Other (See Below) Neurological History: Reports: CVA Psychiatric History: Reports: Anxiety, PTSD Other Psychiatric History: served in the [place] war Endocrine/Metabolic History: Reports: None Hematologic History: Reports: None Immunologic History: Reports: None Oncologic (Cancer) History: Reports: None Dermatologic History: Reports: None - Infectious Disease History Infectious Disease History: Reports: Measles - Past Surgical History Cardiovascular Surgical History: Reports: Coronary Artery Stent Musculoskeletal Surgical History: Reports: ORIF Other Musculoskeletal Surgeries/Procedures:: right lower leg injury from during the war-uses brace and oxycodone Social & Family History - Family History Family Medical History: No Pertinent Family History - Caffeine Use Caffeine Use: Reports: Coffee - Living Situation & Occupation Living situation: Reports: , with Spouse Occupation: Retired ED ROS GENERAL - Review of Systems Review Of Systems: See Below Constitutional: Reports: Fatigue. Denies: Fever, Chills, Malaise, Weakness, Decreased Appetite, Weight Loss HEENT: Reports: Glasses, Hearing Loss (Mildly hard of hearing.) Respiratory: Reports: Shortness of Breath, Cough. Denies: Wheezing, Pleuritic Chest Pain, Sputum, Hemoptysis (Intermittent nonproductive cough) Cardiovascular: Reports: Chest Pain (See history of present illness.), Blood Pressure Problem, Dyspnea on Exertion, Palpitations. Denies: Claudication, Edema, Lightheadedness, Orthopnea Endocrine: Reports: Fatigue GI/Abdominal: Reports: Other (Intermittent problems with GERD.) : Reports: Frequency, Urgency, Other (Nocturia x2.) Musculoskeletal: Reports: Neck Pain, Shoulder Pain, Back Pain, Joint Pain (Knees and hips at times.) Skin: Reports: Bruising (Bruises easily since he is on Plavix.) Neurological: Reports: Confusion ([place] to have impaired short-term memory), Other ( and early dementia. Speech impairment i.e. somewhat difficult to understand at times due to previous CVA.) Psychiatric: Reports: Depression Hematologic/Lymphatic: Reports: No Symptoms Immunologic: Reports: No Symptoms (Intermittent problems with depression.) ED EXAM, GENERAL - Physical Exam Exam: See Below Exam Limited By: No Limitations General Appearance: Alert, WD/WN, No Apparent Distress, Thin, Other (Temperature is 36.6 C. Heart rate was in the 140s with a fairly regular appearing tachycardia either junctional or atrial fib.). No: Anxious, Lethargic, Obtunded Eye Exam: Bilateral Eye: Normal Inspection, PERRL (No sclericterus or blepharal pallor.) Throat/Mouth: Normal Inspection, Normal Lips, Normal Oropharynx, Other Head: Atraumatic (Tongue is mildly dry and coated), Normocephalic Neck: Normal Inspection, Limited Range of Motion (Crepitus on lateral rotation.), Tender Lateral. No: Carotid Bruit, Lymphadenopathy (L) (Mild tenderness bilateral cervical spine which he states is no worse than normal.), Lymphadenopathy (R) Respiratory/Chest: No Respiratory Distress, Lungs Clear, Normal Breath Sounds, No Accessory Muscle Use, Decreased Breath Sounds (Breath sounds are diminished to the lower 20% lung amin bilaterally.). No: Rales, Rhonchi, Wheezing Cardiovascular: No Edema, No Gallop, No Murmur, No Rub, Tachycardia (Appears to have a regular tachycardia in the 145 range on exam.). No: Normal Peripheral Pulses, Regular Rate, Rhythm Peripheral Pulses: 2+: Carotid (L), Carotid (R), Dorsalis Pedis (L), Dorsalis Pedis (R) GI/Abdominal: Normal Bowel Sounds, Soft, Non-Tender, No Organomegaly, No Mass, Pelvis Stable, Other (Scaphoid abdomen. Firm palpation mildly tympany to percussion upper abdomen suggesting mild aerophagia.) (Male) Exam: No Hernia Extremities: Normal Inspection, Normal Range of Motion, Non-Tender, No Pedal Edema Neurological: Alert, Oriented, CN II-XII Intact, Normal Cognition Psychiatric: Normal Affect, Normal Mood Skin Exam: Warm, Dry, Intact, Normal Color, No Rash #1 Interpretation EKG Date: 06/13/21 Time: 08:35 Rhythm: Other (Regular wide-complex tachycardia with right bundle branch block pattern.) Chestnut: RAD-Right Chestnut Deviation (Mild right axis deviation -94 degrees.) P-Wave: Enlarged (Left atrial enlargement. Variable P wave) QRS: RBBB ST-T: Other (Baseline is highly irregular. Early repolarization pattern due to rate) QT: Prolonged (Markedly prolonged) EKG Interpretation Comments: Abnormal ECG #2 Interpretation EKG Date: 06/13/21 Time: 09:30 Rhythm: NSR Rate (Beats/Min): 66 Chestnut: LAD-Left Chestnut Deviation (-79 degrees) P-Wave: Present (Borderline first-degree AV block) QRS: Other (Early R wave transition suggesting right ventricular hypertrophy. Q waves present in V1 V2 and near Q-wave V3 suggesting old anteroseptal myocardial infarction) ST-T: Other (T wave inversion V1 and V2) QT: Prolonged (Mildly prolonged) EKG Interpretation Comments: Abnormal ECG Course - Vital Signs Last Recorded V/S: Last Vital Signs Temp 36.6 C 06/13/21 08:45 Pulse 140 H 06/13/21 08:45 Resp 18 06/13/21 08:45 BP 109/90 06/13/21 08:45 Pulse Ox 94 L 06/13/21 08:45 - Orders/Labs/Meds Orders: Active Orders 24 hr Category Date Time Status Aspirin Med 06/13/21 09:00 Active 162 mg PO DAILY Sodium Chloride 0.9% [Normal Saline] 1,000 ml Med 06/13/21 09:00 Active IV ASDIRECTED Sodium Chloride 0.9% [Normal Saline] 100 ml Med 06/13/21 10:15 Active IV ASDIRECTED Sodium Chloride 0.9% [Saline Flush] Med 06/13/21 10:13 Active 10 ml FLUSH ONETIME PRN Medication Orders Aspirin (Aspirin 81 Mg Tab.Chew) 162 mg PO DAILY [facility] Last Admin: 06/13/21 09:00 Dose: 162 mg Documented by: HARIKA Sodium Chloride (Normal Saline) 1,000 mls @ 100 mls/hr IV ASDIRECTED FRANCISCA Last Admin: 06/13/21 09:01 Dose: 100 mls/hr Documented by: HARIKA Sodium Chloride (Normal Saline) 100 mls @ 75 mls/hr IV ASDIRECTED FRANCISCA Last Admin: 06/13/21 10:39 Dose: 75 mls/hr Documented by: LANNY Sodium Chloride (Sodium Chloride 0.9% 10 Ml Syringe) 10 ml FLUSH ONETIME PRN PRN Reason: IV FLUSH Last Admin: 06/13/21 10:38 Dose: 10 ml Documented by: LANNY Labs: Laboratory Tests 06/13/21 06/13/21 06/13/21 Range/Units 09:17 09:17 09:17 WBC 8.92 (4.23-9.07) K/mm3 RBC 4.60 L (4.63-6.08) M/mm3 Hgb 13.8 (13.7-17.5) gm/dl Hct 41.6 (40.1-51.0) % MCV 90.4 D (79.0-92.2) fl MCH 30.0 (25.7-32.2) pg MCHC 33.2 (32.2-35.5) g/dl RDW Std Deviation 45.6 H (35.1-43.9) fL Plt Count 186 (163-337) K/mm3 MPV 10.7 (9.4-12.3) fl Neut % (Auto) 72.8 H (34.0-67.9) % Lymph % (Auto) 15.1 L (21.8-53.1) % Latimer % (Auto) 8.0 (5.3-12.2) % Eos % (Auto) 3.1 (0.8-7.0) Baso % (Auto) 0.9 (0.1-1.2) % Neut # (Auto) 6.49 H (1.78-5.38) K/mm3 Lymph # (Auto) 1.35 (1.32-3.57) K/mm3 Latimer # (Auto) 0.71 (0.30-0.82) K/mm3 Eos # (Auto) 0.28 (0.04-0.54) K/mm3 Baso # (Auto) 0.08 (0.01-0.08) K/mm3 PT 11.4 (9.7-12.0) SECONDS INR 1.07 APTT 24.5 (21.7-31.4) SECONDS D-Dimer, Quantitative (0.19-0.50) mg/L Sodium 141 (136-145) mEq/L Potassium 3.1 L (3.5-5.1) mEq/L Chloride 105 (98-107) mEq/L Carbon Dioxide 25 (21-32) mEq/L Anion Gap 14.1 (5-15) BUN 16 (7-18) mg/dL Creatinine 1.0 (0.7-1.3) mg/dL Est Cr Clr Drug Dosing 66.53 mL/min Estimated GFR (MDRD) > 60 (>60) mL/min BUN/Creatinine Ratio 16.0 (14-18) Glucose 188 H (70-99) mg/dL Calcium 8.0 L (8.5-10.1) mg/dL Magnesium 2.2 (1.8-2.4) mg/dL Total Bilirubin 0.4 (0.2-1.0) mg/dL AST 17 (15-37) U/L ALT 23 (16-63) U/L Alkaline Phosphatase 70 (46-116) U/L CK-MB (CK-2) 3.9 H (0-3.6) ng/ml Troponin I 0.024 (0.00-0.056) ng/mL C-Reactive Protein <0.2 (<1.0) mg/dL NT-Pro-B Natriuret Pep (0-125) pg/mL Total Protein 7.0 (6.4-8.2) g/dl Albumin 3.5 (3.4-5.0) g/dl Globulin 3.5 gm/dL Albumin/Globulin Ratio 1.0 (1-2) 06/13/21 06/13/21 Range/Units 09:17 09:17 WBC (4.23-9.07) K/mm3 RBC (4.63-6.08) M/mm3 Hgb (13.7-17.5) gm/dl Hct (40.1-51.0) % MCV (79.0-92.2) fl MCH (25.7-32.2) pg MCHC (32.2-35.5) g/dl RDW Std Deviation (35.1-43.9) fL Plt Count (163-337) K/mm3 MPV (9.4-12.3) fl Neut % (Auto) (34.0-67.9) % Lymph % (Auto) (21.8-53.1) % Latimer % (Auto) (5.3-12.2) % Eos % (Auto) (0.8-7.0) Baso % (Auto) (0.1-1.2) % Neut # (Auto) (1.78-5.38) K/mm3 Lymph # (Auto) (1.32-3.57) K/mm3 Latimer # (Auto) (0.30-0.82) K/mm3 Eos # (Auto) (0.04-0.54) K/mm3 Baso # (Auto) (0.01-0.08) K/mm3 PT (9.7-12.0) SECONDS INR APTT (21.7-31.4) SECONDS D-Dimer, Quantitative 2.54 H (0.19-0.50) mg/L Sodium (136-145) mEq/L Potassium (3.5-5.1) mEq/L Chloride (98-107) mEq/L Carbon Dioxide (21-32) mEq/L Anion Gap (5-15) BUN (7-18) mg/dL Creatinine (0.7-1.3) mg/dL Est Cr Clr Drug Dosing mL/min Estimated GFR (MDRD) (>60) mL/min BUN/Creatinine Ratio (14-18) Glucose (70-99) mg/dL Calcium (8.5-10.1) mg/dL Magnesium (1.8-2.4) mg/dL Total Bilirubin (0.2-1.0) mg/dL AST (15-37) U/L ALT (16-63) U/L Alkaline Phosphatase (46-116) U/L CK-MB (CK-2) (0-3.6) ng/ml Troponin I (0.00-0.056) ng/mL C-Reactive Protein (<1.0) mg/dL NT-Pro-B Natriuret Pep 385 H (0-125) pg/mL Total Protein (6.4-8.2) g/dl Albumin (3.4-5.0) g/dl Globulin gm/dL Albumin/Globulin Ratio (1-2) Meds: Medications Generic Name Dose Route Start Last Admin Trade Name Freq PRN Reason Stop Dose Admin Aspirin 162 mg 06/13/21 09:00 06/13/21 09:00 Aspirin 81 Mg Tab.Chew PO 162 mg DAILY FRANCISCA Administration Sodium Chloride 1,000 mls @ 100 mls/hr 06/13/21 09:00 06/13/21 09:01 Normal Saline IV 100 mls/hr ASDIRECTED FRANCISCA Administration Sodium Chloride 100 mls @ 75 mls/hr 06/13/21 10:15 06/13/21 10:39 Normal Saline IV 75 mls/hr ASDIRECTED FRANCISCA Administration Sodium Chloride 10 ml 06/13/21 10:13 06/13/21 10:38 Sodium Chloride 0.9% 10 Ml Syringe FLUSH 10 ml ONETIME PRN Administration IV FLUSH Discontinued Medications Generic Name Dose Route Start Last Admin Trade Name Joe PRN Reason Stop Dose Admin Diltiazem HCl 10 mg 06/13/21 08:54 06/13/21 09:00 Diltiazem 50 Mg/10 Ml Sdv IVPUSH 06/13/21 08:55 10 mg ONETIME ONE Administration Dextrose/Sodium Chloride 1,000 mls @ 100 mls/hr 06/13/21 08:45 Dextrose 5%-Normal Saline IV ASDIRECTED FRANCISCA Iopamidol 100 ml 06/13/21 10:13 06/13/21 10:38 Iopamidol 755 Mg/Ml 100 Ml Bottle IVPUSH 06/13/21 10:14 100 ml ONETIME ONE Administration - Radiology Interpretation Free Text/Narrative:: 76-year-old male presents to the ED after experiencing central left precordial chest pain after getting out of the cold shower this morning. This developed well he was toweling off. He recognized this to be angina and took nitroglycerin tabs 0.4 mg x 2 about 6 minutes apart. The second 1 relieved his chest pain completely and has not yet returned. Blood pressure upon arrival was slightly low at 108/82. Heart rate however is showing a regular wide-complex tachycardia which I suspect is underlying atrial fibrillation but it could be junctional. He does have a right bundle branch block pattern. He does not feel dizzy lightheaded or short of breath. Plan ECG. 1 view chest x-ray. Normal saline at 100 mils an hour. Will be given Cardizem 10 mg IV bolus to bring down his heart rate. Routine labs including cardiac markers are been ordered. He estimates that his chest pain lasted about 10 minutes in total - Re-Assessments/Exams Free Text/Narrative Re-Assessment/Exam: 06/13/21 09:28 heart rate is down to 100 to 130/min. BP actually improved as is heart rate improved. O2 sats remain 95% room air. The monitor suggest atrial fibrillation. Portable chest x-ray reveals bilateral hyperinflated lungs compatible with COPD. Mild cardiomegaly. Tortuous thoracic aorta appreciated. Mediastinum appears normal other than small hiatal hernia. There is prominence of both pulmonary arteries more so on the right than on the left. No pleural effusions. No acute osseous abnormalities identified 06/13/21 09:37 ECG now shows sinus rhythm at 66/min. There is a right bundle branch block pattern. There are Q waves in V1 to V3 compared with an old anteroseptal myocardial infarction. Borderline first-degree AV block early R wave transition suggesting right ventricular hypertrophy pattern. Left axis deviation of -79 degrees with a mildly prolonged QT interval. No baseline changes to suggest ischemia. 06/13/21 09:40 Hematology reveals a normal white count at 8.92. Differential shows 72.8% neutrophils on the auto differential. Hemoglobin is 13.8 with hematocrit of 41.6. Platelet count 186,000 06/13/21 10:10 PT is 11.4 with an INR of 1.07. PTT is 24.5. D-dimer is elevated at 2.54. Sodium 141 with a potassium low at 3.1. Chloride is 105 with a bicarb of 25. Anion gap is 14.1. BUN is 16 with a creatinine of 1.0 and a GFR greater than 60. Glucose is 188. Calcium was 8.0. Magnesium is 2.2. Liver function is normal. CK-MB fraction is 3.9 with a troponin I of less than 0.024. C-reactive protein is less than 0.2. Tentatively I plan to proceed with CT pulmonary angiogram to rule out PE due to elevated D-dimer without reason. I will await his BNP. 06/13/21 11:04 CT chest pulmonary angiogram has been completed. Ascending aorta is slightly aneurysmal with an AP dimension of 3.9 cm. Atherosclerotic calcification is seen within the thoracic aorta. Pulmonary arteries are well o pacified. No filling defects are seen to indicate pulmonary embolism. Atherosclerotic changes seen within the coronary arteries. Mediastinum shows small lymph nodes which are felt to be within normal limits. No axillary adenopathy is seen. Small portion of the visualized upper abdominal structures show surgical clips from prior cholecystectomy. Small calcification combined with nonobstructing stone is noted within the right kidney. Mild dependent atelectasis is noted within both posterior lungs. Lungs otherwise are clear with no acute parenchymal change being noted. Bone window settings were reviewed which show mild degenerative change within the thoracic spine. No acute osseous abnormalities are appreciated. Patient will therefore be discharged to home. He has some concerns that his nitroglycerin tablets might be out dated. I will therefore write a prescription for nitroglycerin tablet 0.4 mg strength to be used as needed for angina pain. He knows that if he has to reach for a third nitroglycerin tablet he is to call the ambulance at the same time. 12 tablets will be provided. Departure - Departure Time of Disposition: 11:06 Disposition: Home, Self-Care 01 Condition: Fair Clinical Impression: Angina pectoris without myocardial infarction, Hypokalemia due to loss of potassium - Discharge Information *PRESCRIPTION DRUG MONITORING PROGRAM REVIEWED*: Not Applicable *COPY OF PRESCRIPTION DRUG MONITORING REPORT IN PATIENT JANET: Not Applicable Prescriptions: Nitroglycerin 0.4 mg SL ASDIRECTED #12 tab.subl Potassium Chloride 20 meq PO DAILY #30 tablet.er Referrals: PCP,None [Primary Care Provider] - Forms: ED Department Discharge Additional Instructions: Evaluation in the emergency room today in regards to development of central chest pressure squeezing pain after getting out of a cold shower and while drying off. You did the right thing by taking nitroglycerin tablet under the tongue about 5 to 6 minutes apart with a second tablet working much better than the first to relieve your pain. No recurrence of chest pain while in the emergency room. Lab test revealed that your blood potassium level is on the low side at 3.1 and it should be around 3.5-4. You will need a potassium supplement or called K-Dur 20 mg once daily in the morning. Blood test also suggested possibility of blood clot in the lung with an elevated D-dimer at 2.54. CT pulmonary angiogram of the chest was therefore performed and does not reveal any signs of a blood clot in your lung. I have refilled a prescription for nitroglycerin tablet 0.4 mg strength to be taken under the tongue 1 every 5 minutes for maximum of 3 tablets if needed for relief of chest pain which you have suffered from this morning. If chest pain seem to be coming more frequently like once every week or 2 then follow-up with cardiology is indicated. Follow-up with primary care doctor in about 2 to 3 weeks time Sepsis Event Note (ED) - Focused Exam Vital Signs: Vital Signs Temp Pulse Resp BP Pulse Ox 06/13/21 08:45 36.6 C 140 H 18 109/90 94 L - My Orders Last 24 Hours: My Active Orders 06/13/21 09:00 Aspirin 162 mg PO DAILY Sodium Chloride 0.9% [Normal Saline] 1,000 ml IV ASDIRECTED 06/13/21 10:13 Sodium Chloride 0.9% [Saline Flush] 10 ml FLUSH ONETIME PRN 06/13/21 10:15 Sodium Chloride 0.9% [Normal Saline] 100 ml IV ASDIRECTED - Assessment/Plan Last 24 Hours: My Active Orders 06/13/21 09:00 Aspirin 162 mg PO DAILY Sodium Chloride 0.9% [Normal Saline] 1,000 ml IV ASDIRECTED 06/13/21 10:13 Sodium Chloride 0.9% [Saline Flush] 10 ml FLUSH ONETIME PRN 06/13/21 10:15 Sodium Chloride 0.9% [Normal Saline] 100 ml IV ASDIRECTED
[2021-06-13] MEDS ORDERED: Diltiazem 50 MG/10 ML SDV IVPUSH ONE (08:54)
[2021-06-13] MEDS ORDERED: Aspirin 81 MG Tab.Chew PO SCH (09:00)
[2021-06-13] MEDS ORDERED: Sodium Chloride 0.9% 1,000 ML IV SCH (09:00)
--- NOTE | 2021-06-13 09:34 | CR ---
Chest: Frontal view of the chest was obtained. Comparison: Prior chest x-ray of 01/29/21. Heart size is normal. Small hiatal hernia is seen. Slight tortuosity of the thoracic aorta is noted. Lungs are clear with no acute parenchymal change. Nothing acute is seen within the osseous structures. Impression: 1. Findings as noted above. 2. Nothing acute is appreciated. Diagnostic code #2
[2021-06-13] MEDS ORDERED: Sodium Chloride 0.9% 10 ML Syringe FLUSH PRN (10:13)
[2021-06-13] MEDS ORDERED: Iopamidol 755 Mg/ML 100 ML Bottle IVPUSH ONE (10:13)
[2021-06-13] MEDS ORDERED: Sodium Chloride 0.9% 100 ML IV SCH (10:15)
--- NOTE | 2021-06-13 11:00 | CT ---
CT chest Technique: Multiple axial sections were obtained through the chest. Intravenous contrast was utilized. Study has been performed as a pulmonary angiogram protocol. Comparison: No prior chest CT is available, previous chest x-ray performed earlier on the same day left (8:40 AM). 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 Atherosclerotic calcification is seen within the thoracic aorta. Pulmonary arteries are well opacified. No filling defects are seen to indicate pulmonary embolism. Atherosclerotic change is seen within the coronary arteries. Mediastinum shows small lymph nodes which are felt to be within normal limits. No axillary adenopathy is seen. Small portion of the visualized upper abdominal structures show surgical clips from prior cholecystectomy. Small calcification compatible with nonobstructing stone is noted within the right kidney. Mild dependent atelectasis is noted within both posterior lungs. Lungs otherwise are clear with no acute parenchymal change being seen. Bone window settings were reviewed which show mild degenerative change within the thoracic spine. No acute osseous abnormality is appreciated. Impression: 1. 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 Thoracic aorta also shows diffuse atherosclerotic calcification. 2. No findings of pulmonary embolism are seen. 3. Other findings believed to be incidental as noted above. Diagnostic code #3
== END 2021-06-13 11:27 | disposition home or self-care (01) ==
LOC: JD.ED 08:32
DX: I25.119 Atherosclerotic heart disease of native coronary artery with unspecified angina pectoris (principal); E87.6 Hypokalemia; E78.00 Pure hypercholesterolemia, unspecified; I11.0 Hypertensive heart disease with heart failure; I50.9 Heart failure, unspecified; I25.2 Old myocardial infarction; Z79.82 Long term (current) use of aspirin; Z79.899 Other long term (current) drug therapy; Z79.02 Long term (current) use of antithrombotics/antiplatelets; Z95.5 Presence of coronary angioplasty implant and graft
CPT/HCPCS: 36415; 71045; 71275; 80053; 82553; 83735; 83880; 84484; 85025; 85379; 85610; 85730; 86140; 93005; 96374; 99285; A9270; J3490; J7030; Q9967; 93010; 99284

== ENCOUNTER 2022-02-07 17:47 | Inpatient (IN) | payer OTHER ==
[2022-02-07] MEDS ORDERED: Diltiazem 50 MG/10 ML SDV IVPUSH ONE ×3 (17:54→18:19)
[2022-02-07] MEDS ORDERED: Diltiazem 50 MG/10 ML SDV ONE (17:54)
[2022-02-07] MEDS ORDERED: Diltiazem 100 MG AdvVial ONE (17:55)
[2022-02-07] MEDS ORDERED: Diltiazem 100 MG in Sodium Chloride 0.9% 100 ML IV SCH (18:00)
[2022-02-07] MEDS ORDERED: Aspirin 81 MG Tab.Chew PO ONE (18:09)
[2022-02-07] MEDS ORDERED: Amiodarone In Dextrose,Iso-Osm 200 ML IV SCH (18:30)
[2022-02-07] MEDS ORDERED: Heparin Sodium 5,000 Units/ML Vial IVPUSH ONE (19:44)
[2022-02-07] MEDS ORDERED: Heparin Sodium/D5W 25,000 UNITS/500 ML BAG IV SCH ×2 (19:45→20:11)
[2022-02-08] MEDS: Potassium Chloride 10 MEQ in Premix Bag 1 BAG IV SCH ×4 (01:29→04:30)
[2022-02-08] MEDS ORDERED: Cyclobenzaprine 10 MG Tab PO PRN (07:14)
[2022-02-08] MEDS ORDERED: Hydrochlorothiazide 25 MG Tab PO SCH (09:00)
[2022-02-08] MEDS ORDERED: Aspirin 81 MG Tab.EC PO SCH (09:00)
[2022-02-08] MEDS ORDERED: Clopidogrel 75 MG Tab PO SCH (09:00)
[2022-02-08] MEDS ORDERED: Lisinopril 20 MG Tab PO SCH (09:00)
[2022-02-08] MEDS ORDERED: amLODIPine 5 MG Tab PO SCH (16:00)
[2022-02-08] MEDS ORDERED: Donepezil 10 MG Tab PO SCH (21:00)
== END 2022-02-08 11:30 | disposition left against medical advice (07) | DRG 281 ==
LOC: JD.ED 17:47 → JD.ICU 19:58
PROVIDERS: ADMIT Internal Medicine; ATTEND Internal Medicine
DX: I48.91 Unspecified atrial fibrillation (principal); R77.8 Other specified abnormalities of plasma proteins; I21.4 Non-ST elevation (NSTEMI) myocardial infarction; I47.2 Ventricular tachycardia; R00.0 Tachycardia, unspecified; I48.0 Paroxysmal atrial fibrillation; Z53.29 Procedure and treatment not carried out because of patient's decision for other reasons; I25.10 Atherosclerotic heart disease of native coronary artery without angina pectoris; I11.0 Hypertensive heart disease with heart failure; I50.9 Heart failure, unspecified; E78.00 Pure hypercholesterolemia, unspecified; Z79.02 Long term (current) use of antithrombotics/antiplatelets; F43.10 Post-traumatic stress disorder, unspecified; F41.9 Anxiety disorder, unspecified; Z79.82 Long term (current) use of aspirin; Z86.73 Personal history of transient ischemic attack (TIA), and cerebral infarction without residual deficits; Z79.899 Other long term (current) drug therapy; Z95.5 Presence of coronary angioplasty implant and graft; I25.2 Old myocardial infarction
CPT/HCPCS: 36415; 71045; 80053; 81001; 82553; 83735; 83880; 84443; 84484; 85025; 85610; 85730; 93005; A9270; J0282 ×2; J3490 ×4; 85049; 96365; 96367; 96376; 99285-25; J1644; J3480

== ENCOUNTER 2022-03-17 18:48 | Emergency (ER) | payer OTHER ==
[2022-03-17] MEDS ORDERED: Sodium Chloride 0.9% 10 ML Syringe FLUSH PRN (18:58)
[2022-03-17] MEDS ORDERED: Sodium Chloride 0.9% 1,000 ML IV SCH (19:00)
[2022-03-17] MEDS ORDERED: Aspirin 81 MG Tab.Chew PO ONE (19:19)
[2022-03-17] MEDS ORDERED: Propofol 200 MG/20 ML SDV ONE (20:19)
[2022-03-17 20:21] LABS: ESTIMATED GFR 46 mL/min (>60)
[2022-03-17] MEDS ORDERED: Heparin Sodium 5,000 Units/ML Vial IVPUSH ONE (20:41)
[2022-03-17] MEDS ORDERED: Heparin Sodium/D5W 25,000 UNITS/500 ML BAG IV SCH (20:45)
[2022-03-17] MEDS ORDERED: Magnesium Sulfate/Water 2 GM in Premix Bag 1 BAG IV ONE (20:47)
[2022-03-17] MEDS ORDERED: Potassium Chloride 10 MEQ in Premix Bag 1 BAG IV SCH (21:00)
[2022-03-17] MEDS ORDERED: Ondansetron 4 MG/2 ML SDV ONE (21:02)
[2022-03-17] MEDS ORDERED: Heparin Sodium 5,000 Units/ML Vial ONE (21:06)
[2022-03-17] MEDS ORDERED: Heparin Sodium/D5W 500 ML ONE (21:07)
[2022-03-17] MEDS ORDERED: Potassium Chloride 100 ML ONE (21:08)
[2022-03-17] MEDS ORDERED: Magnesium Sulfate/Water 50 ML ONE (21:09)
[2022-03-17] MEDS ORDERED: Ondansetron 4 MG/2 ML SDV IVPUSH ONE (21:31)
[2022-03-17] MEDS ORDERED: Propofol 200 MG/20 ML SDV IVPUSH ONE (21:32)
== END 2022-03-17 22:40 ==
LOC: JD.ED 18:48
DX: I21.4 Non-ST elevation (NSTEMI) myocardial infarction (principal); I47.2 Ventricular tachycardia; I25.10 Atherosclerotic heart disease of native coronary artery without angina pectoris; I11.0 Hypertensive heart disease with heart failure; I50.9 Heart failure, unspecified; E78.00 Pure hypercholesterolemia, unspecified; I25.2 Old myocardial infarction; Z95.5 Presence of coronary angioplasty implant and graft; Z86.73 Personal history of transient ischemic attack (TIA), and cerebral infarction without residual deficits; Z20.822 Contact with and (suspected) exposure to COVID-19
CPT/HCPCS: 36415; 71045; 80053; 83735; 84484; 85025; 87635; 92960; 93005; 96365; 96366; 96368; 96375; 99285; A9270; J0282; J1644; J2405; J2704; J3475; J3480; J3490; J7030; 93010; U0002

== ENCOUNTER 2022-03-22 11:51 | Emergency (ER) | payer OTHER ==
[2022-03-22] MEDS ORDERED: Pantoprazole 40 MG Vial IVPUSH ONE (12:10)
[2022-03-22] MEDS ORDERED: Dextrose 5%-0.9% NaCl 1,000 ML IV SCH (12:15)
[2022-03-22] MEDS ORDERED: Furosemide 40 MG/4 ML VIAL IVPUSH ONE (12:37)
[2022-03-22] MEDS ORDERED: Metoclopramide 10 MG/2 ML SDV IVPUSH ONE (12:55)
[2022-03-22] MEDS ORDERED: fentaNYL 100 MCG/2 ML SDV IVPUSH ONE (12:56)
[2022-03-22 12:59] LABS: ESTIMATED GFR 54 mL/min (>60)
[2022-03-22] MEDS ORDERED: Sodium Chloride 0.9% 1,000 ML IV SCH (13:45)
== END 2022-03-22 16:30 ==
LOC: JD.ED 11:51
DX: T50.901A Poisoning by unspecified drugs, medicaments and biological substances, accidental (unintentional), initial encounter (principal); I48.91 Unspecified atrial fibrillation; K92.2 Gastrointestinal hemorrhage, unspecified; I25.10 Atherosclerotic heart disease of native coronary artery without angina pectoris; I95.89 Other hypotension; F17.210 Nicotine dependence, cigarettes, uncomplicated; Z79.899 Other long term (current) drug therapy; Z79.82 Long term (current) use of aspirin; Z86.73 Personal history of transient ischemic attack (TIA), and cerebral infarction without residual deficits
CPT/HCPCS: 36415; 36430; 36600; 71045; 80053; 80307; 81001; 82553; 82803; 83735; 83880; 84484; 85025; 85610; 85730; 86140; 86850; 86900; 86901; 86922; 87635; 93005; 96365; 96366; 96375; 99285; C9113; J0282; J1940; J2765; J3010; J7042; P9016; 93010; U0002

== ENCOUNTER 2022-03-28 17:55 | Emergency (ER) | payer OTHER ==
[2022-03-28] MEDS ORDERED: Sodium Chloride 0.9% 10 ML Syringe FLUSH PRN (18:00)
[2022-03-28] MEDS ORDERED: Midazolam 1 MG/ML 2 ML SDV IVPUSH ONE ×3 (18:19→19:10)
[2022-03-28 18:42] LABS: ESTIMATED GFR > 60 mL/min (>60)
[2022-03-28] MEDS ORDERED: Digoxin 500 MCG/2 ML Amp IVPUSH ONE (18:56)
[2022-03-28] MEDS ORDERED: Sodium Chloride 0.9% 1,000 ML ONE (18:56)
[2022-03-28] MEDS ORDERED: Sodium Chloride 0.9% 1,000 ML IV ONE (18:59)
[2022-03-28] MEDS ORDERED: Sodium Chloride 0.9% 1,000 ML IV SCH (19:15)
[2022-03-28] MEDS ORDERED: HYDROmorphone 0.5 MG/0.5 ML Syringe IVPUSH ONE (19:36)
[2022-03-28] MEDS ORDERED: Diltiazem 100 MG in Sodium Chloride 0.9% 100 ML IV SCH (20:00)
[2022-03-28] MEDS ORDERED: Diltiazem 100 MG AdvVial ONE (21:26)
[2022-03-28] MEDS ORDERED: Sodium Chloride 0.9% 0 ML ONE (21:33)
== END 2022-03-28 20:30 ==
LOC: JD.ED 17:55
DX: I48.91 Unspecified atrial fibrillation (principal); D64.89 Other specified anemias; Z79.82 Long term (current) use of aspirin; Z79.02 Long term (current) use of antithrombotics/antiplatelets; Z86.73 Personal history of transient ischemic attack (TIA), and cerebral infarction without residual deficits; Z95.1 Presence of aortocoronary bypass graft; Z20.822 Contact with and (suspected) exposure to COVID-19
CPT/HCPCS: 36415; 71045; 80053; 83880; 84443; 84484; 85025; 87635; 92960; 93005; 96365; 96366; 96375; 99152; 99285; J0282; J1160; J1170; J2250; J3490; J7030; U0002

== ENCOUNTER 2022-06-05 12:43 | Emergency (ER) | payer OTHER ==
[2022-06-05] MEDS ORDERED: Dextrose 5%-0.9% NaCl 1,000 ML IV SCH (13:00)
[2022-06-05 13:45] LABS: ESTIMATED GFR 70 mL/min (>60)
[2022-06-05 15:06] LABS: CORONAVIRUS COVID-19 NAA NEGATIVE (NEGATIVE)
== END 2022-06-05 15:26 | disposition home or self-care (01) ==
LOC: JD.ED 12:43
DX: G30.0 Alzheimer's disease with early onset (principal); F02.80 Dementia in other diseases classified elsewhere, unspecified severity, without behavioral disturbance, psychotic disturbance, mood disturbance, and anxiety; E87.6 Hypokalemia; I48.91 Unspecified atrial fibrillation; I25.10 Atherosclerotic heart disease of native coronary artery without angina pectoris; I11.0 Hypertensive heart disease with heart failure; I50.9 Heart failure, unspecified; I25.2 Old myocardial infarction; Z86.73 Personal history of transient ischemic attack (TIA), and cerebral infarction without residual deficits; Z79.82 Long term (current) use of aspirin; Z79.899 Other long term (current) drug therapy; Z20.822 Contact with and (suspected) exposure to COVID-19
CPT/HCPCS: 0240U; 36415; 71045; 80053; 80307; 81001; 83735; 83880; 84484; 85025; 86140; 93005; 99285; J7042

== ENCOUNTER 2022-07-11 13:18 | Inpatient (IN) | payer OTHER ==
[2022-07-11] MEDS ORDERED: Sodium Chloride 0.9% 10 ML Syringe FLUSH PRN ×2 (13:33→18:44)
[2022-07-11] MEDS: Diltiazem 25 MG/5 ML SDV IVPUSH ONE ×3 (13:42→15:40)
[2022-07-11] MEDS ORDERED: Sodium Chloride 0.9% 1,000 ML IV SCH ×2 (13:45→15:45)
[2022-07-11] MEDS ORDERED: Sodium Chloride 0.9% 500 ML IV ONE (14:27)
[2022-07-11] MEDS: Diltiazem 125 MG in Sodium Chloride 0.9% 100 ML IV SCH (14:54)
[2022-07-11] MEDS ORDERED: Iopamidol 755 MG/ML 50 ML Bottle IVPUSH ONE (16:48)
[2022-07-11] MEDS ORDERED: Ondansetron 4 MG/2 ML SDV IV PRN (18:42)
[2022-07-11] MEDS ORDERED: Ondansetron 4 MG Tab.DIS PO PRN (18:42)
[2022-07-11] MEDS ORDERED: Magnesium Sulfate (4.06 MEQ/ML) 5 GM/10 ML SDV IV SCH (19:00)
[2022-07-11] MEDS ORDERED: Nitroglycerin 0.4 MG Tab.SL SL SCH (19:00)
[2022-07-11] MEDS ORDERED: Diltiazem 125 MG in Sodium Chloride 0.9% 100 ML IV SCH (19:00)
[2022-07-11] MEDS ORDERED: Magnesium Sulfate/Water 2 GM in Premix Bag 1 BAG IV ONE (19:15)
[2022-07-11] MEDS: Diltiazem IR 60 MG Tab PO SCH (19:35)
[2022-07-11] MEDS: cefTRIAXone 1 GM in Sodium Chloride 0.9% 100 ML IV SCH (19:39)
[2022-07-11] MEDS: Potassium Chloride 10 MEQ in Premix Bag 1 BAG IV SCH ×4 (19:45→22:45)
[2022-07-11] MEDS: Pantoprazole 40 MG Vial IVPUSH SCH (20:21)
[2022-07-11] MEDS ORDERED: Donepezil 10 MG Tab PO SCH (21:00)
[2022-07-11] MEDS ORDERED: Aspirin 81 MG Tab.EC PO SCH (21:00)
[2022-07-12] MEDS: Diltiazem IR 60 MG Tab PO SCH ×3 (01:34→18:00)
[2022-07-12] MEDS: Diltiazem 120 MG Cap.CD PO SCH ×2 (07:57→08:02)
[2022-07-12] MEDS: Pantoprazole 40 MG Vial IVPUSH SCH ×2 (08:01→20:17)
[2022-07-12] MEDS ORDERED: Hydrochlorothiazide 25 MG Tab PO SCH (09:00)
[2022-07-12] MEDS ORDERED: Clopidogrel 75 MG Tab PO SCH (09:00)
[2022-07-12] MEDS ORDERED: Non-Formulary Medication 1 Each (Rosuvastatin Calcium [Rosuvastatin Calcium] 40 MG Tablet) PO SCH (09:00)
[2022-07-12] MEDS ORDERED: Lactated Ringers 1,000 ML ONE (09:46)
[2022-07-12] MEDS ORDERED: Propofol 200 MG/20 ML SDV ONE (10:00)
[2022-07-12] MEDS ORDERED: Lidocaine 1% 6 ML ONE (10:00)
[2022-07-12] MEDS ORDERED: Diltiazem 25 MG/5 ML SDV IVPUSH ONE ×2 (10:51→10:55)
[2022-07-12] MEDS ORDERED: Morphine 2 MG/ML SYRINGE ONE (10:57)
[2022-07-12] MEDS ORDERED: Dextrose 5%-0.45% NaCl 1,000 ML ONE (11:02)
[2022-07-12] MEDS ORDERED: Nitroglycerin 0.4 MG Tab.SL ONE (11:08)
[2022-07-12] MEDS ORDERED: Metoprolol Tartrate 5 MG/5 ML SDV ONE (11:13)
[2022-07-12] MEDS ORDERED: Diltiazem 125 MG in Sodium Chloride 0.9% 100 ML IV SCH ×2 (11:30→19:00)
[2022-07-12] MEDS ORDERED: Diltiazem IR 60 MG Tab PO ONE (11:45)
[2022-07-12] MEDS: Diltiazem 125 MG in Sodium Chloride 0.9% 100 ML IV SCH (11:58)
[2022-07-12] MEDS: Famotidine 20 MG/2 ML SDV IVPUSH SCH ×2 (13:09→20:17)
[2022-07-12] MEDS: Diphenhydramine/Lidocaine/MagAl/Simethicone 119 ML Bottle PO SCH ×3 (16:20→20:17)
[2022-07-12] MEDS: Sucralfate Suspension 1 GM/10 ML Cup PO SCH ×2 (16:21→21:44)
[2022-07-12] MEDS: cefTRIAXone 1 GM in Sodium Chloride 0.9% 100 ML IV SCH (18:54)
[2022-07-12] MEDS: Acetaminophen 325 MG Tab PO PRN (21:44)
[2022-07-12] MEDS ORDERED: traZODone 50 MG Tab PO ONE (23:35)
[2022-07-13] MEDS: Diltiazem IR 60 MG Tab PO SCH ×2 (00:01→06:30)
[2022-07-13] MEDS: Acetaminophen 325 MG Tab PO PRN (03:20)
[2022-07-13] MEDS: Sucralfate Suspension 1 GM/10 ML Cup PO SCH ×2 (06:31→11:25)
[2022-07-13] MEDS: Pantoprazole 40 MG Vial IVPUSH SCH (08:46)
[2022-07-13] MEDS ORDERED: Diltiazem 240 MG Cap.ER PO SCH (09:00)
[2022-07-13] MEDS: Famotidine 20 MG/2 ML SDV IVPUSH SCH (09:09)
[2022-07-13] MEDS: Diphenhydramine/Lidocaine/MagAl/Simethicone 119 ML Bottle PO SCH (09:10)
== END 2022-07-13 12:26 | disposition home or self-care (01) | DRG 280 ==
LOC: JD.ED 13:18 → JD.ICU 18:38
PROVIDERS: ADMIT Hospitalist; ATTEND Hospitalist
PROC: 0DB58ZX Excision of Esophagus, Via Natural or Artificial Opening Endoscopic, Diagnostic (ICD-10-PCS; principal; 2022-07-12)
PROC: 0DB68ZX Excision of Stomach, Via Natural or Artificial Opening Endoscopic, Diagnostic (ICD-10-PCS; 2022-07-12)
DX: I48.91 Unspecified atrial fibrillation (principal); D72.829 Elevated white blood cell count, unspecified; I21.4 Non-ST elevation (NSTEMI) myocardial infarction; I50.9 Heart failure, unspecified; K29.71 Gastritis, unspecified, with bleeding; R65.10 Systemic inflammatory response syndrome (SIRS) of non-infectious origin without acute organ dysfunction; K92.2 Gastrointestinal hemorrhage, unspecified; K20.90 Esophagitis, unspecified without bleeding; Z20.822 Contact with and (suspected) exposure to COVID-19; I25.10 Atherosclerotic heart disease of native coronary artery without angina pectoris; R73.9 Hyperglycemia, unspecified; E87.6 Hypokalemia; E83.42 Hypomagnesemia; F03.90 Unspecified dementia, unspecified severity, without behavioral disturbance, psychotic disturbance, mood disturbance, and anxiety; J44.9 Chronic obstructive pulmonary disease, unspecified; E78.00 Pure hypercholesterolemia, unspecified; N40.0 Benign prostatic hyperplasia without lower urinary tract symptoms; G89.29 Other chronic pain; M54.9 Dorsalgia, unspecified; F41.9 Anxiety disorder, unspecified; F43.10 Post-traumatic stress disorder, unspecified; Z86.73 Personal history of transient ischemic attack (TIA), and cerebral infarction without residual deficits; Z79.82 Long term (current) use of aspirin; Z79.02 Long term (current) use of antithrombotics/antiplatelets; Z79.899 Other long term (current) drug therapy; I25.2 Old myocardial infarction; Z95.5 Presence of coronary angioplasty implant and graft
CPT/HCPCS: 36415; 70450; 71045; 71260; 74177; 80053; 81001; 83036; 83605; 83735; 83880; 84145; 84484 ×2; 85025; 86140; 87040 ×2; 87502; 87634; 87635; 93005; J3490 ×5; J7030 ×3; Q9967; 00731; 80048; 88305; 88312; 88342; 93010; 99223; 99233; 99239; 99284; A9270-GY; C9113; J0696; J2270; J2704; J3475; J3480; J7042; U0002

== ENCOUNTER 2022-09-17 16:23 | Emergency (ER) | payer OTHER ==
[2022-09-17] MEDS ORDERED: Sodium Chloride 0.9% 10 ML Syringe FLUSH PRN (16:26)
[2022-09-17] MEDS ORDERED: Diltiazem 25 MG/5 ML SDV IVPUSH ONE (16:27)
[2022-09-17] MEDS ORDERED: Diltiazem 125 MG in Sodium Chloride 0.9% 100 ML IV SCH (16:30)
[2022-09-17] MEDS ORDERED: Sodium Chloride 0.9% 1,000 ML IV SCH (16:30)
[2022-09-17 18:19] LABS: ESTIMATED GFR 89 mL/min (>60)
[2022-09-17] MEDS ORDERED: Diltiazem 120 MG Cap.CD PO ONE (20:39)
== END 2022-09-17 22:16 | disposition home or self-care (01) ==
LOC: JD.ED 16:23
DX: I48.91 Unspecified atrial fibrillation (principal); R79.89 Other specified abnormal findings of blood chemistry; I45.10 Unspecified right bundle-branch block; I25.10 Atherosclerotic heart disease of native coronary artery without angina pectoris; I11.0 Hypertensive heart disease with heart failure; I50.9 Heart failure, unspecified; I25.2 Old myocardial infarction; J44.9 Chronic obstructive pulmonary disease, unspecified; Z79.01 Long term (current) use of anticoagulants; Z79.899 Other long term (current) drug therapy
CPT/HCPCS: 36415; 71045; 80053; 83735; 84484; 85025; 93005; 96365; 96366; 96376; 99285; A9270; J3490; J7030

== ENCOUNTER 2022-10-08 20:42 | Emergency (ER) | payer OTHER ==
[2022-10-08] MEDS ORDERED: Adenosine 12 MG/4 ML SDV ONE (20:58)
[2022-10-08] MEDS ORDERED: Adenosine 6 MG/2 ML SDV ONE (20:58)
[2022-10-08] MEDS ORDERED: Diltiazem 25 MG/5 ML SDV IVPUSH STA (21:05)
[2022-10-08] MEDS ORDERED: Diltiazem 25 MG/5 ML SDV ONE (21:06)
[2022-10-08] MEDS ORDERED: Diltiazem 125 MG in Sodium Chloride 0.9% 100 ML IV SCH (21:15)
[2022-10-08 21:44] LABS: ESTIMATED GFR 63 mL/min (>60)
[2022-10-08] MEDS ORDERED: Potassium Chloride 20 MEQ Tab.ER PO ONE (22:17)
[2022-10-09] MEDS ORDERED: Acetaminophen 325 MG Tab PO ONE (01:43)
[2022-10-09] MEDS ORDERED: Potassium Chloride 20 MEQ Tab.ER ONE (04:14)
[2022-10-09] MEDS ORDERED: Acetaminophen 325 MG Tab ONE (04:14)
== END 2022-10-09 09:30 | disposition home or self-care (01) ==
LOC: JD.ED 20:42
DX: I48.92 Unspecified atrial flutter (principal); E87.6 Hypokalemia; R73.9 Hyperglycemia, unspecified; I48.91 Unspecified atrial fibrillation; I25.10 Atherosclerotic heart disease of native coronary artery without angina pectoris; I11.0 Hypertensive heart disease with heart failure; I50.9 Heart failure, unspecified; J44.9 Chronic obstructive pulmonary disease, unspecified; Z79.01 Long term (current) use of anticoagulants; Z79.899 Other long term (current) drug therapy
CPT/HCPCS: 36415; 71045; 80053; 81001; 83735; 83880; 84484; 85025; 93005; 96365; 96366; 99285; A9270; J0153; J3490

== ENCOUNTER 2022-10-14 19:03 | Inpatient (IN) | payer OTHER ==
[2022-10-14] MEDS ORDERED: Diltiazem 125 MG in Sodium Chloride 0.9% 100 ML IV SCH (20:15)
[2022-10-14 21:13] LABS: ESTIMATED GFR 78 mL/min (>60)
[2022-10-14] MEDS ORDERED: cefTRIAXone 1 GM in Sodium Chloride 0.9% 100 ML IV STA (21:52)
[2022-10-14] MEDS ORDERED: Azithromycin 500 MG in Sodium Chloride 0.9% 250 ML IV STA (21:53)
[2022-10-15] MEDS ORDERED: Aspirin 81 MG Tab.Chew PO STA (00:08)
[2022-10-15] MEDS ORDERED: atorvaSTATin 40 MG Tab PO STA (00:08)
[2022-10-15] MEDS ORDERED: Clopidogrel 75 MG Tab PO ONE (00:09)
[2022-10-15] MEDS: Metoprolol Tartrate 5 MG/5 ML SDV IVPUSH ONE ×2 (00:33→00:36)
[2022-10-15] MEDS ORDERED: Metoprolol Succinate 25 MG Tab.ER PO ONE (00:37)
[2022-10-15] MEDS ORDERED: Heparin Sodium 5,000 Units/ML Vial IVPUSH STA (02:22)
[2022-10-15] MEDS: Heparin Sodium/D5W 25,000 UNITS/500 ML BAG IV SCH (02:56)
[2022-10-15] MEDS ORDERED: Furosemide 40 MG/4 ML VIAL IVPUSH ONE (04:20)
[2022-10-15] MEDS ORDERED: HYDROmorphone 0.5 MG/0.5 ML Syringe IVPUSH ONE (09:32)
[2022-10-15] MEDS ORDERED: Metoclopramide 10 MG/2 ML SDV IVPUSH ONE (09:33)
[2022-10-15] MEDS ORDERED: Sodium Chloride 0.9% 1,000 ML IV SCH (09:45)
[2022-10-15] MEDS: Potassium Chloride 10 MEQ in Premix Bag 1 BAG IV SCH ×2 (09:45→10:51)
[2022-10-15] MEDS ORDERED: Heparin Sodium 5,000 Units/ML Vial IVPUSH ONE ×2 (10:27→17:45)
[2022-10-15] MEDS ORDERED: Acetaminophen 325 MG Tab PO PRN (14:39)
[2022-10-15] MEDS ORDERED: oxyCODONE 5 MG Tab PO PRN (14:39)
[2022-10-15] MEDS ORDERED: Docusate Sodium 100 MG Cap PO PRN (14:39)
[2022-10-15] MEDS ORDERED: Ondansetron 4 MG/2 ML SDV IV PRN (14:39)
[2022-10-15] MEDS ORDERED: Levalbuterol HCl 1.25 MG/3 ML Neb NEB PRN (15:32)
[2022-10-15] MEDS: Pantoprazole 40 MG Tab.CR PO SCH (17:51)
[2022-10-15] MEDS ORDERED: Insulin Regular, Human 100 Units/ML 3 ML Vial ONE (17:59)
[2022-10-15] MEDS: Insulin Lispro 100 Unit/ML 3 ML KwikPen SUBCUT SCH ×2 (18:13→22:12)
[2022-10-15] MEDS ORDERED: LORazepam 1 MG Tab PO PRN (20:15)
[2022-10-15] MEDS: Donepezil 10 MG Tab PO SCH (20:26)
[2022-10-15] MEDS: Metoprolol Tartrate 25 MG Tab PO SCH (20:27)
[2022-10-16] MEDS: Heparin Sodium/D5W 25,000 UNITS/500 ML BAG IV SCH (02:22)
[2022-10-16] MEDS: Pantoprazole 40 MG Tab.CR PO SCH ×2 (06:42→17:53)
[2022-10-16] MEDS: Insulin Lispro 100 Unit/ML 3 ML KwikPen SUBCUT SCH ×3 (07:48→17:30)
[2022-10-16] MEDS ORDERED: Heparin Sodium 5,000 Units/ML Vial IVPUSH ONE (08:15)
[2022-10-16] MEDS: Metoprolol Tartrate 25 MG Tab PO SCH ×2 (08:41→20:05)
[2022-10-16] MEDS ORDERED: Furosemide 40 MG Tab PO SCH (09:00)
[2022-10-16] MEDS ORDERED: amLODIPine 5 MG Tab PO SCH (09:00)
[2022-10-16] MEDS ORDERED: Clopidogrel 75 MG Tab PO SCH (09:00)
[2022-10-16] MEDS ORDERED: Cholecalciferol (Vitamin D3) 25 MCG Tab PO SCH (09:00)
[2022-10-16] MEDS ORDERED: Lisinopril 20 MG Tab PO SCH ×2 (09:00)
[2022-10-16] MEDS ORDERED: Amiodarone 200 MG Tab PO SCH (09:00)
[2022-10-16] MEDS ORDERED: Potassium Chloride 20 MEQ Tab.ER PO SCH (12:30)
[2022-10-16] MEDS: Donepezil 10 MG Tab PO SCH (20:05)
[2022-10-16] MEDS ORDERED: atorvaSTATin 40 MG Tab PO SCH (21:00)
[2022-10-17] MEDS ORDERED: Apixaban 5 MG Tab PO SCH (09:00)
== END 2022-10-16 22:20 | disposition left against medical advice (07) | DRG 281 ==
LOC: JD.ED 19:03 → JD.MS 10-15 13:47
PROVIDERS: ADMIT Internal Medicine; ATTEND Internal Medicine
DX: I21.4 Non-ST elevation (NSTEMI) myocardial infarction (principal); I48.92 Unspecified atrial flutter; I50.42 Chronic combined systolic (congestive) and diastolic (congestive) heart failure; I25.10 Atherosclerotic heart disease of native coronary artery without angina pectoris; I45.10 Unspecified right bundle-branch block; I50.9 Heart failure, unspecified; E11.65 Type 2 diabetes mellitus with hyperglycemia; D64.9 Anemia, unspecified; J44.9 Chronic obstructive pulmonary disease, unspecified; E87.6 Hypokalemia; I11.0 Hypertensive heart disease with heart failure; F43.10 Post-traumatic stress disorder, unspecified; F03.B0 Unspecified dementia, moderate, without behavioral disturbance, psychotic disturbance, mood disturbance, and anxiety; K22.719 Barrett's esophagus with dysplasia, unspecified; D64.89 Other specified anemias; E78.00 Pure hypercholesterolemia, unspecified; F41.9 Anxiety disorder, unspecified; Z87.11 Personal history of peptic ulcer disease; Z86.73 Personal history of transient ischemic attack (TIA), and cerebral infarction without residual deficits; Z95.5 Presence of coronary angioplasty implant and graft; Z79.01 Long term (current) use of anticoagulants; Z79.899 Other long term (current) drug therapy
CPT/HCPCS: 36415; 71045; 71045-26; 80048; 80053; 82553; 82947; 83036; 83605; 83735; 83880; 84443; 84484; 85025; 85610; 85730; 87040; 93005; 93306; 94660; 94760; 97162-GP; A9270-GY; J0282; J0456; J0696; J1170; J1644; J1815; J1940; J2765; J3480; J3490; J7050; U0002

== ENCOUNTER 2022-10-28 12:49 | Emergency (ER) | payer OTHER ==
[2022-10-28] MEDS ORDERED: Diltiazem 125 MG in Sodium Chloride 0.9% 100 ML IV SCH (13:15)
[2022-10-28] MEDS ORDERED: Diltiazem 25 MG/5 ML SDV IVPUSH ONE ×2 (13:50→14:33)
[2022-10-28] MEDS ORDERED: Metoclopramide 10 MG/2 ML SDV IVPUSH ONE (14:32)
[2022-10-28] MEDS ORDERED: HYDROmorphone 0.5 MG/0.5 ML Syringe IVPUSH ONE (14:32)
[2022-10-28 15:16] LABS: ESTIMATED GFR 78 mL/min (>60)
== END 2022-10-28 17:42 | disposition home or self-care (01) ==
LOC: JD.ED 12:49
DX: R07.89 Other chest pain (principal); I48.91 Unspecified atrial fibrillation; I25.10 Atherosclerotic heart disease of native coronary artery without angina pectoris; I11.0 Hypertensive heart disease with heart failure; I50.9 Heart failure, unspecified; R77.8 Other specified abnormalities of plasma proteins; E78.00 Pure hypercholesterolemia, unspecified; I25.2 Old myocardial infarction; J44.9 Chronic obstructive pulmonary disease, unspecified; K21.9 Gastro-esophageal reflux disease without esophagitis; N40.0 Benign prostatic hyperplasia without lower urinary tract symptoms; Z86.73 Personal history of transient ischemic attack (TIA), and cerebral infarction without residual deficits; Z79.01 Long term (current) use of anticoagulants
CPT/HCPCS: 36415; 71045; 71045-26; 80053; 82553; 82728; 83540; 83735; 83880; 84443; 84466; 84484; 85025; 85045; 85610; 86140; 93005; 96365; 96376; 99285-25; J3490

== ENCOUNTER 2023-03-16 18:07 | Emergency (ER) | payer OTHER ==
[2023-03-16] MEDS ORDERED: Diltiazem 25 MG/5 ML SDV IVPUSH ONE ×2 (18:37→19:23)
[2023-03-16 19:04] LABS: HEMOGLOBIN 13.3 gm/dl (13.7-17.5); MEAN CORPUSCULAR HEMOGLOBIN 22.2 pg (25.7-32.2); MEAN CORPUSCULAR HGB CONC 30.9 g/dl (32.2-35.5); MEAN CORPUSCULAR VOLUME 71.9 fl (79.0-92.2); MEAN PLATELET VOLUME 10.6 fl (9.4-12.3); PLATELET COUNT,PLT 188 K/mm3 (163-337); RED BLOOD CELL COUNT 5.98 M/mm3 (4.63-6.08); WHITE BLOOD CELL COUNT,WBC 6.34 K/mm3 (4.23-9.07)
[2023-03-16] MEDS ORDERED: Diltiazem IR 60 MG Tab PO ONE (19:20)
[2023-03-16 19:30] LABS: A/G RATIO 1.1 (1-2); ALBUMIN 3.9 g/dl (3.4-5.0); ANION GAP 17.5 (5-15); BILIRUBIN TOTAL 0.9 mg/dL (0.2-1.0); BUN/CREATININE RATIO 12.3 (14-18); CREATININE 1.3 mg/dL (0.7-1.3); EST CRCL DRUG DOSING (CG) 46.77 mL/min; MAGNESIUM 1.8 mg/dL (1.8-2.4); POTASSIUM,K 3.5 mEq/L (3.5-5.1); PROTEIN TOTAL,TP 7.5 g/dl (6.4-8.2)
[2023-03-16 19:42] LABS: BAND PERCENT MAN 0 % (0-10); BASOPHILS PERCENT MAN 1 (0.2-1.2); EOSINOPHILS PERCENT MAN 6 % (0.8-7.0); LYMPHOCYTES % ATYPICAL MANUAL 0 %; LYMPHOCYTES PERCENT MAN 18 % (20-40); MONOCYTES PERCENT MAN 7 % (2-10); PLATELET COUNT ESTIMATE ADEQUATE
[2023-03-16 20:16] LABS: INR 1.17; PROTHROMBIN TIME 12.4 SECONDS (9.7-12.0)
== END 2023-03-16 20:30 | disposition left against medical advice (07) ==
LOC: JD.ED 18:07
DX: I48.91 Unspecified atrial fibrillation (principal); I25.10 Atherosclerotic heart disease of native coronary artery without angina pectoris; I11.0 Hypertensive heart disease with heart failure; I50.9 Heart failure, unspecified; I25.2 Old myocardial infarction; J44.9 Chronic obstructive pulmonary disease, unspecified; Z79.01 Long term (current) use of anticoagulants; Z79.899 Other long term (current) drug therapy
CPT/HCPCS: 36415; 71045; 80053; 80307; 83735; 84484; 85007; 85027; 85610; 85730; 93005; 96374; 96376; 99284; A9270; J3490

== ENCOUNTER 2023-09-07 11:49 | Inpatient (IN) | payer OTHER ==
[2023-09-07] MEDS ORDERED: Aspirin 81 MG Tab.Chew PO ONE (11:58)
[2023-09-07] MEDS ORDERED: Sodium Chloride 0.9% 10 ML Syringe FLUSH PRN (11:58)
[2023-09-07] MEDS ORDERED: Magnesium Sulfate/Water 2 GM in Premix Bag 1 BAG IV ONE (12:07)
[2023-09-07 12:50] LABS: BASOPHILS PERCENT AUTO 0.4 % (0.0-1.0); EOSINOPHILS ABSOLUTE AUTO 0.1 K/mm3 (0.0-0.4); EOSINOPHILS PERCENT AUTO 0.5 % (0.0-6.0); HEMOGLOBIN 13.7 gm/dl (14.0-18.0); IMMATURE GRAN ABSOLUTE AUTO 0.08 K/mm3 (0.00-0.05); IMMATURE GRAN PERCENT AUTO 0.8 % (0.0-0.4); LYMPHOCYTES ABSOLUTE AUTO 0.7 K/mm3 (1.0-4.8); LYMPHOCYTES PERCENT AUTO 7.1 % (24.0-44.0); MEAN CORPUSCULAR HEMOGLOBIN 23.1 pg (28.0-32.0); MEAN CORPUSCULAR HGB CONC 29.8 g/dl (32.0-36.0); MEAN CORPUSCULAR VOLUME 77.4 fl (83.0-99.0); MEAN PLATELET VOLUME 10.9 fl (9.4-12.4); MONOCYTES ABSOLUTE AUTO 0.5 K/mm3 (0.0-0.8); MONOCYTES PERCENT AUTO 4.8 % (0.0-8.0); NEUTROPHILS ABSOLUTE AUTO 8.1 K/mm3 (1.8-7.7); NEUTROPHILS PERCENT AUTO 86.4 % (41.0-71.0); PLATELET COUNT,PLT 229 K/mm3 (150-400); RED BLOOD CELL COUNT 5.94 M/mm3 (4.52-5.90); WHITE BLOOD CELL COUNT,WBC 9.43 K/mm3 (3.9-11.3)
[2023-09-07] MEDS ORDERED: Diltiazem 25 MG/5 ML SDV IVPUSH ONE (12:54)
[2023-09-07 13:10] LABS: INR 1.19; PROTHROMBIN TIME 12.6 SECONDS (9.7-12.0)
[2023-09-07 13:30] LABS: A/G RATIO 0.7 (1-2); ALBUMIN 3.3 g/dl (3.4-5.0); ANION GAP 17.8 (5-15); BILIRUBIN TOTAL 1.1 mg/dL (0.2-1.0); BUN/CREATININE RATIO 7.9 (14-18); CALCIUM 9.4 mg/dL (8.5-10.1); CREATININE 1.4 mg/dL (0.7-1.3); EST CRCL DRUG DOSING (CG) 43.43 mL/min; POTASSIUM,K 2.8 mEq/L (3.5-5.1)
[2023-09-07] MEDS: Diltiazem 125 MG in Sodium Chloride 0.9% 100 ML IV SCH ×2 (13:38→23:04)
[2023-09-07] MEDS ORDERED: Potassium Chloride 10 MEQ in Premix Bag 1 BAG IV ONE (13:41)
[2023-09-07 14:57] LABS: APPEARANCE,URINE CLEAR (Clear); BILIRUBIN,URINE 1+ (Negative); COLOR,URINE DARK YELLOW (Yellow); GLUCOSE,URINE TRACE (Negative); KETONES,URINE 1+ (Negative); LEUKOCYTE ESTERASE,URINE NEGATIVE (Negative); NITRITE,URINE NEGATIVE (Negative); OCCULT BLOOD,URINE TRACE-LYSED (Negative); PROTEIN,URINE 3+ (Negative)
[2023-09-07 15:06] LABS: BARBITURATE SCREEN,URINE NEGATIVE (CUTOFF=200); BENZODIAZEPINES SCREEN,URINE NEGATIVE (CUTOFF=150); BUPRENORPHINE SCREEN,URINE NEGATIVE (CUTOFF=10); METHADONE SCREEN, URINE NEGATIVE (CUT0FF=200); METHAMPHETAMINES SCREEN, URINE NEGATIVE (CUTOFF=500); OXYCODONE SCREEN,URINE NEGATIVE (CUT0FF=100); THC SCREEN,URINE 20 NG/ML PRESUMPTIVE POSITIVE (CUTOFF=50)
[2023-09-07 15:12] LABS: AMPHETAMINES SCREEN, URINE NEGATIVE (CUTOFF=500)
[2023-09-07 15:19] LABS: RBC,URINE 0-5 /hpf (0-5); WBC,URINE 0-5 /hpf (0-5)
[2023-09-07 15:20] LABS: BACTERIA,URINE FEW /hpf (FEW); HYALINE CASTS,URINE 20-30 /lpf (0-5); MUCUS,URINE MANY /hpf (FEW)
[2023-09-07] MEDS: Potassium Chloride 20 MEQ Tab.ER PO SCH ×2 (17:22→20:03)
[2023-09-07] MEDS: Potassium Chloride 10 MEQ in Premix Bag 1 BAG IV SCH (18:51)
[2023-09-07] MEDS ORDERED: Sodium Chloride 0.9% 1,000 ML IV SCH (19:30)
[2023-09-07] MEDS ORDERED: Potassium Chloride 20 MEQ Tab.ER PO ONE (19:31)
[2023-09-07] MEDS ORDERED: Labetalol 100 MG/20 ML MDV IVPUSH ONE (19:36)
[2023-09-07] MEDS: Insulin Lispro 100 Unit/ML 3 ML KwikPen SUBCUT SCH (20:30)
[2023-09-08 05:44] LABS: A/G RATIO 0.7 (1-2); ALBUMIN 2.6 g/dl (3.4-5.0); ANION GAP 14.3 (5-15); BILIRUBIN TOTAL 0.8 mg/dL (0.2-1.0); BUN/CREATININE RATIO 11.3 (14-18); CALCIUM 8.5 mg/dL (8.5-10.1); CREATININE 0.8 mg/dL (0.7-1.3); POTASSIUM,K 3.3 mEq/L (3.5-5.1); PROTEIN TOTAL,TP 6.5 g/dl (6.4-8.2)
[2023-09-08 06:04] LABS: BASOPHILS ABSOLUTE AUTO 0.1 K/mm3 (0.0-0.2); BASOPHILS PERCENT AUTO 0.7 % (0.0-1.0); EOSINOPHILS ABSOLUTE AUTO 0.2 K/mm3 (0.0-0.4); HEMATOCRIT 38.4 % (42.0-52.0); HEMOGLOBIN 11.9 gm/dl (14.0-18.0); IMMATURE GRAN ABSOLUTE AUTO 0.05 K/mm3 (0.00-0.05); IMMATURE GRAN PERCENT AUTO 0.7 % (0.0-0.4); LYMPHOCYTES PERCENT AUTO 13.3 % (24.0-44.0); MEAN CORPUSCULAR HEMOGLOBIN 23.2 pg (28.0-32.0); MEAN CORPUSCULAR VOLUME 74.9 fl (83.0-99.0); MEAN PLATELET VOLUME 11.3 fl (9.4-12.4); MONOCYTES ABSOLUTE AUTO 0.7 K/mm3 (0.0-0.8); NEUTROPHILS ABSOLUTE AUTO 5.4 K/mm3 (1.8-7.7); NEUTROPHILS PERCENT AUTO 73.3 % (41.0-71.0); PLATELET COUNT,PLT 233 K/mm3 (150-400); RED BLOOD CELL COUNT 5.13 M/mm3 (4.52-5.90); WHITE BLOOD CELL COUNT,WBC 7.37 K/mm3 (3.9-11.3)
[2023-09-08] MEDS ORDERED: Metoprolol Tartrate 25 MG Tab PO SCH (06:15)
[2023-09-08] MEDS: Potassium Chloride 10 MEQ in Premix Bag 1 BAG IV SCH ×2 (07:20→07:37)
[2023-09-08] MEDS: Potassium Chloride 20 MEQ Tab.ER PO SCH (08:42)
[2023-09-08] MEDS: Diltiazem 125 MG in Sodium Chloride 0.9% 100 ML IV SCH (08:43)
[2023-09-08] MEDS: Furosemide 20 MG Tab PO SCH (08:43)
[2023-09-08] MEDS: Apixaban 5 MG Tab PO SCH ×2 (08:43→21:50)
[2023-09-08] MEDS: Insulin Lispro 100 Unit/ML 3 ML KwikPen SUBCUT SCH ×4 (08:50→21:34)
[2023-09-08] MEDS: Rosuvastatin 10 MG Tab PO SCH (10:40)
[2023-09-08] MEDS ORDERED: Acetaminophen 325 MG Tab PO PRN (11:29)
[2023-09-08] MEDS ORDERED: FLU (Fluad Quad) 2023-24(65UP)/MF59C/PF 60 MCG/0.5 ML Syringe IM ONE (11:45)
[2023-09-08] MEDS ORDERED: Metoprolol Tartrate 50 MG Tab PO SCH (12:00)
[2023-09-08] MEDS ORDERED: Metoprolol Tartrate 5 MG/5 ML SDV ONE (14:31)
[2023-09-08] MEDS ORDERED: Metoprolol Tartrate 5 MG/5 ML SDV IVPUSH ONE (15:00)
[2023-09-08] MEDS: Metoprolol Tartrate 50 MG Tab PO SCH ×2 (16:45→21:49)
[2023-09-08] MEDS ORDERED: Donepezil 10 MG Tab PO SCH (21:00)
[2023-09-09] MEDS: Metoprolol Tartrate 50 MG Tab PO SCH (04:31)
[2023-09-09 05:54] LABS: HEMATOCRIT 39.2 % (42.0-52.0); MEAN CORPUSCULAR HEMOGLOBIN 23.2 pg (28.0-32.0); MEAN CORPUSCULAR HGB CONC 30.6 g/dl (32.0-36.0); MEAN CORPUSCULAR VOLUME 75.8 fl (83.0-99.0); MEAN PLATELET VOLUME 11.3 fl (9.4-12.4); PLATELET COUNT,PLT 215 K/mm3 (150-400); RED BLOOD CELL COUNT 5.17 M/mm3 (4.52-5.90); WHITE BLOOD CELL COUNT,WBC 8.43 K/mm3 (3.9-11.3)
[2023-09-09 06:06] LABS: A/G RATIO 0.7 (1-2); ALBUMIN 2.7 g/dl (3.4-5.0); ANION GAP 14.9 (5-15); BILIRUBIN TOTAL 0.9 mg/dL (0.2-1.0); CALCIUM 8.4 mg/dL (8.5-10.1); EST CRCL DRUG DOSING (CG) 60.8 mL/min; MAGNESIUM 1.8 mg/dL (1.8-2.4); POTASSIUM,K 3.9 mEq/L (3.5-5.1); PROTEIN TOTAL,TP 6.7 g/dl (6.4-8.2)
[2023-09-09] MEDS ORDERED: Empagliflozin 10 MG Tab PO SCH (09:00)
[2023-09-09] MEDS: Rosuvastatin 10 MG Tab PO SCH (09:27)
[2023-09-09] MEDS: Apixaban 5 MG Tab PO SCH (09:27)
[2023-09-09] MEDS: Furosemide 20 MG Tab PO SCH (09:27)
[2023-09-09] MEDS: Potassium Chloride 20 MEQ Tab.ER PO SCH (09:27)
[2023-09-09] MEDS: Insulin Lispro 100 Unit/ML 3 ML KwikPen SUBCUT SCH ×2 (09:32→11:43)
[2023-09-09] MEDS ORDERED: Metoprolol Tartrate 100 MG Tab PO SCH (10:00)
[2023-09-09] MEDS ORDERED: Metoprolol Tartrate 5 MG/5 ML SDV IVPUSH ONE (11:28)
[2023-09-10] MEDS ORDERED: Lisinopril 2.5 MG Tab PO SCH (09:00)
== END 2023-09-09 12:49 | disposition left against medical advice (07) | DRG 641 ==
LOC: JD.ED 11:49 → JD.ICU 14:25
PROVIDERS: ADMIT Internal Medicine; ATTEND Internal Medicine
DX: E87.6 Hypokalemia (principal); I50.22 Chronic systolic (congestive) heart failure; I48.91 Unspecified atrial fibrillation; G30.9 Alzheimer's disease, unspecified; I25.10 Atherosclerotic heart disease of native coronary artery without angina pectoris; I11.0 Hypertensive heart disease with heart failure; J44.9 Chronic obstructive pulmonary disease, unspecified; R73.03 Prediabetes; F03.B0 Unspecified dementia, moderate, without behavioral disturbance, psychotic disturbance, mood disturbance, and anxiety; I51.3 Intracardiac thrombosis, not elsewhere classified; E78.00 Pure hypercholesterolemia, unspecified; K21.9 Gastro-esophageal reflux disease without esophagitis; N40.0 Benign prostatic hyperplasia without lower urinary tract symptoms; F41.9 Anxiety disorder, unspecified; F43.10 Post-traumatic stress disorder, unspecified; Z95.5 Presence of coronary angioplasty implant and graft; Z79.01 Long term (current) use of anticoagulants; Z86.73 Personal history of transient ischemic attack (TIA), and cerebral infarction without residual deficits; Z79.899 Other long term (current) drug therapy; I25.2 Old myocardial infarction; Z98.890 Other specified postprocedural states
CPT/HCPCS: 36415; 71045; 71045-26; 80053; 80306; 80307; 81001; 82947; 83735; 83880; 84484; 85025; 85027; 85610; 93005; 93307; 94760; 96365; 96375; 96376; 97161-GP; 99285-25; A9270-GY; J1815; J3475; J3480; J3490; J7030